=== PATIENT | male | born 1955 | race Caucasian/White ===

== ENCOUNTER 2023-08-25 13:10 | Emergency (ER) | payer MEDICARE, SELFPAY ==
[2023-08-25 13:15] VITALS: BP 170/104; PULSE 92; RESP 16; TEMP 36.6; O2SAT 99; BMI 19.6
--- NOTE | 2023-08-25 13:26 | ED.GENADUL1 ---
HPI - General Adult General Chief complaint: Urogenital-Male Stated complaint: ABDOMINAL PAIN Time Seen by Provider: 08/25/23 13:15 Source: patient Mode of arrival: walk-in History of Present Illness HPI narrative: Patient is a 68-year-old male who presents to the emergency department for the evaluation of right low back pain that has been present for 1 week. He states he was seen at the [facility] emergency department yesterday concerned he may have a kidney stone or UTI. He states he had a CT scan that was unremarkable but he was told that his urine specimen was normal, he states he never provided 1 and does not trust the care he received yesterday. He has a history of frequent UTIs with similar presentation in the past. He states he has had frequent UTIs since having a colostomy. He has no fevers, chills, nausea, vomiting, abdominal pain. He denies any dysuria or hematuria. No falls or injuries to the low back. Pain in the low back/right flank is worse with movement. Related Data Home Medications Medication Instructions Recorded Confirmed amlodipine 10 mg tablet 10 mg PO Q24H 08/25/23 08/25/23 apixaban 5 mg tablet (Eliquis) 5 mg PO Q12H 08/25/23 08/25/23 atorvastatin 20 mg tablet 20 mg PO Q24H 08/25/23 08/25/23 bictegravir 50 mg-emtricitabine 1 tab PO Q24H 08/25/23 08/25/23 200 mg-tenofovir alafenam 25 mg tablet (Biktarvy) Previous Rx's Medication Instructions Recorded cephalexin 500 mg capsule 500 mg PO Q8H 5 days #15 caps 08/25/23 ondansetron 4 mg disintegrating 4 mg PO Q6H PRN nausea and 08/25/23 tablet vomiting #12 tabs Allergies Allergy/AdvReac Type Severity Reaction Status Date / Time No Known Drug Allergies Allergy Verified 08/25/23 13:23 Review of Systems ROS Constitutional Denies: fever or chills Ears, nose, mouth, and throat Denies: throat pain or nasal congestion Cardiovascular Denies: chest pain Respiratory Denies: shortness of breath Gastrointestinal Denies: abdominal pain, nausea, vomiting or diarrhea Genitourinary Denies: painful urination, urinary frequency, urinary urgency or blood in urine Musculoskeletal Reports: back pain; Denies: neck pain or extremity pain Integumentary/Breast Denies: rash Neurological Denies: headache Hematologic/Lymphatic Reports: easy bruising and easy bleeding Exam Narrative Exam Narrative: Gen.: Awake, alert, in no distress Head: Normocephalic, atraumatic ENT: Moist mucous membranes Respiratory: No respiratory distress Gastrointestinal: Abdomen is soft, nondistended and nontender to palpation Back: Diffuse tenderness of the right low back, no CVA tenderness, no abdominal tenderness. No midline bony point tenderness of the T-spine or L-spine Extremities: Moves extremities equally Psych: Normal mood and affect Neuro: No focal neuro deficit Skin: Warm, dry, intact Constitutional Vital Signs, click to edit/add: Last Vital Signs Temp 97.8 F 08/25/23 13:15 Pulse 88 08/25/23 14:26 Resp 18 08/25/23 14:26 BP 140/90 08/25/23 14:26 Pulse Ox 98 08/25/23 14:26 O2 Del Method Room Air 08/25/23 13:15 Course Vital Signs Vital signs: Vital Signs Temperature 97.8 F 08/25/23 13:15 Pulse Rate 92 H 08/25/23 13:15 Respiratory Rate 16 08/25/23 13:15 Blood Pressure 170/104 H 08/25/23 13:15 Pulse Oximetry 99 08/25/23 13:15 Oxygen Delivery Method Room Air 08/25/23 13:15 Temperature 97.8 F 08/25/23 13:15 Pulse Rate 88 08/25/23 14:26 Respiratory Rate 18 08/25/23 14:26 Blood Pressure 140/90 08/25/23 14:26 Pulse Oximetry 98 08/25/23 14:26 Oxygen Delivery Method Room Air 08/25/23 13:15 Medical Decision Making MDM Narrative Medical decision making narrative: Lab studies show minimal UTI, patient with stable vital signs and no evidence of sepsis. He is placed on Keflex, Zofran for home. CT reviewed from [facility] yesterdayShowing no evidence of acute process and moderate stool burden. Patient placed on Keflex, Zofran, referred back to urology for further evaluation and treatment. Stable at time of discharge. Medical Records Medical records reviewed: Yes I reviewed the patient's medical records Lab Data Lab results reviewed: Yes I reviewed the patient's lab results Labs: Lab Results 08/25/23 08/25/23 Range/Units 13:20 13:44 WBC 8.0 (4.0-11.0) 10^3/uL RBC 4.43 L (4.70-6.10) 10^6/uL Hgb 14.9 (14.0-18.0) g/dL Hct 44.2 (42.0-54.0) % MCV 99.8 H (80.0-94.0) fL MCH 33.6 (25.9-34.0) pg MCHC 33.7 (29.9-35.2) g/dL RDW 12.4 (11.0-15.0) % Plt Count 201 (150-450) 10^3/uL MPV 9.8 (9.5-13.5) fL Neut % (Auto) 74.6 (43.0-75.0) % Lymph % (Auto) 16.1 L (20.5-60.0) % [place] % (Auto) 6.9 (1.7-12.0) % Eos % (Auto) 1.3 (0.9-7.0) % Baso % (Auto) 0.6 (0.2-2.0) % Neut # (Auto) 6.0 (1.4-6.5) 10^3/uL Lymph # (Auto) 1.3 (1.2-3.8) 10^3/uL [place] # (Auto) 0.6 (0.3-0.8) 10^3/uL Eos # (Auto) 0.1 (0.0-0.7) 10^3/uL Baso # (Auto) 0.1 (0.0-0.1) 10^3/uL Abs Immat Gran (auto) 0.04 H (0.00-0.03) 10^3/uL Imm/Tot Granulo (auto) 0.5 (0.0-0.5) % Sodium 142 (136-145) mmol/L Potassium 4.1 (3.5-5.1) mmol/L Chloride 105 (98-107) mmol/L Carbon Dioxide 27.5 (21.0-32.0) mmol/L Anion Gap 13.6 BUN 14.0 (7.0-18.0) mg/dL Creatinine 1.15 (0.70-1.30) mg/dL Est GFR ( Amer) >60 (>=60) Est GFR (Non-Af Amer) >60 (>=60) BUN/Creatinine Ratio 12.2 Glucose 108 H (74-106) mg/dL Lactate 1.5 (0.4-2.0) mmol/L Calcium 8.7 (8.5-10.1) mg/dL Total Bilirubin 0.4 (0.2-1.0) mg/dL AST 20 (15-37) U/L ALT 32 (16-63) U/L Alkaline Phosphatase 75 (46-116) U/L Total Protein 6.7 (6.4-8.2) g/dL Albumin 3.1 L (3.4-5.0) g/dL Globulin 3.6 g/dL Albumin/Globulin Ratio 0.9 Urine Color Yellow (YELLOW) Urine Clarity Clear (CLEAR) Urine pH 6.5 (5.0-9.0) Ur Specific [place] 1.020 (1.005-1.025) Urine Protein Negative (NEG/TRACE) mg/dL Urine Glucose (UA) Negative (NEGATIVE) mg/dL Urine Ketones Negative (NEGATIVE) mg/dL Urine Occult Blood Negative (NEGATIVE) Urine Nitrite Negative (NEGATIVE) Urine Bilirubin Negative (NEGATIVE) Urine Urobilinogen 0.2 (0.2-1.0) EU/dL Ur Leukocyte Esterase Trace A (NEGATIVE) Urine RBC None seen (0-2) #/HPF Urine WBC 5-10 A (NONE SEEN) #/HPF Ur Squamous Epith Cells Few A (NONE/RARE) #/LPF Urine Crystals Not Reportable Urine Bacteria Small A (NONE SEEN) #/HPF Urine Casts Seen A (NONE SEEN) #/LPF Hyaline Casts Moderate Urine Mucus Small A (NONE SEEN) Ur Culture Indicated? Yes Discharge Plan Discharge Chief Complaint: Urogenital-Male Clinical Impression: Urinary tract infection Patient Disposition: Home, Self-Care Time of Disposition Decision: 14:26 Condition: Good Prescriptions / Home Meds: New cephalexin 500 mg capsule 500 mg PO Q8H 5 Days Qty: 15 0RF ondansetron 4 mg tablet,disintegrating 4 mg PO Q6H PRN (Reason: nausea and vomiting) Qty: 12 0RF No Action Biktarvy 50-200-25 mg tablet 1 tab PO Q24H atorvastatin 20 mg tablet 20 mg PO Q24H Eliquis 5 mg tablet 5 mg PO Q12H amlodipine 10 mg tablet 10 mg PO Q24H Instructions: Urinary Tract Infection in Men (DC) Stand Alone Forms: Portal Instructions Referrals: Physician,Non-Staff, MD [Primary Care Provider] - 1 week
[2023-08-25 13:55] LABS: Basophils Absolute Auto 0.1 10^3/uL (0.0-0.1); Basophils Percent Auto 0.6 % (0.2-2.0); Eosinophils Absolute Auto 0.1 10^3/uL (0.0-0.7); Eosinophils Percent Auto 1.3 % (0.9-7.0); Hematocrit 44.2 % (42.0-54.0); Hemoglobin 14.9 g/dL (14.0-18.0); Immature Granulocytes Abs Auto 0.04 10^3/uL (0.00-0.03); Immature Granulocytes Pct Auto 0.5 % (0.0-0.5); Lymphocytes Absolute Auto 1.3 10^3/uL (1.2-3.8); Lymphocytes Percent Auto 16.1 % (20.5-60.0); Mean Corpuscular HGB Conc 33.7 g/dL (29.9-35.2); Mean Corpuscular Hemoglobin 33.6 pg (25.9-34.0); Mean Corpuscular Volume 99.8 fL (80.0-94.0); Mean Platelet Volume 9.8 fL (9.5-13.5); Monocytes Absolute Auto 0.6 10^3/uL (0.3-0.8); Monocytes Percent Auto 6.9 % (1.7-12.0); Neutrophils Percent Auto 74.6 % (43.0-75.0); Platelet Count 201 10^3/uL (150-450); Red Blood Count 4.43 10^6/uL (4.70-6.10); Red Cell Distribution Width 12.4 % (11.0-15.0)
[2023-08-25 14:01] LABS: Bilirubin Urine NEGATIVE (NEGATIVE); Blood Urine NEGATIVE (NEGATIVE); Clarity Urine CLEAR (CLEAR); Color Urine YELLOW (YELLOW); Glucose Urine UA NEGATIVE (NEGATIVE); Ketones Urine NEGATIVE (NEGATIVE); Leukocyte Esterase Urine TRACE (NEGATIVE); Nitrite Urine NEGATIVE (NEGATIVE); Protein Urine NEGATIVE (NEG/TRACE); Urobilinogen Urine 0.2 EU/dL (0.2-1.0); pH Urine 6.5 (5.0-9.0)
[2023-08-25 14:08] LABS: Urine Microscopic Indicated YES
[2023-08-25 14:12] LABS: Lactate/Lactic Acid 1.5 mmol/L (0.4-2.0)
[2023-08-25 14:15] LABS: RBC Urine NONE SEEN #/HPF (0-2)
[2023-08-25 14:16] LABS: Bacteria Urine SMALL #/HPF (NONE SEEN); Cast Seen? SEEN #/LPF (NONE SEEN); Hyaline Casts Urine MODERATE; Mucus Urine SMALL (NONE SEEN); Squamous Epithelial Cell Urine FEW #/LPF (NONE/RARE)
[2023-08-25 14:17] LABS: Urine Culture Indicated YES
[2023-08-25 14:19] LABS: Alanine Aminotransferase 32 U/L (16-63); Albumin Globulin Ratio 0.9; Albumin Level 3.1 g/dL (3.4-5.0); Alkaline Phosphatase 75 U/L (46-116); Anion Gap 13.6; Aspartate Amino Transferase 20 U/L (15-37); BUN Creatinine Ratio 12.2; Bilirubin Total 0.4 mg/dL (0.2-1.0); Calcium 8.7 mg/dL (8.5-10.1); Carbon Dioxide 27.5 mmol/L (21.0-32.0); Chloride 105 mmol/L (98-107); Estimated GFR (African America >60 (>=60); Estimated GFR (Non-African Ame >60 (>=60); Globulin 3.6 g/dL; Glucose 108 mg/dL (74-106); Potassium 4.1 mmol/L (3.5-5.1); Sodium 142 mmol/L (136-145); Total Protein 6.7 g/dL (6.4-8.2)
[2023-08-25 14:26] VITALS: BP 140/90; PULSE 88; RESP 18; O2SAT 98
== END 2023-08-25 14:40 | disposition home or self-care (01) ==
PROVIDERS: Physician Assistant; Emergency Provider Emergency Medicine
DX: N39.0 Urinary tract infection, site not specified (principal); Z87.440 Personal history of urinary (tract) infections; Z79.899 Other long term (current) drug therapy; Z79.01 Long term (current) use of anticoagulants
CPT/HCPCS: 36415; 80053; 81001; 83605; 85025; 87086; 99284

== ENCOUNTER 2024-06-06 10:40 | Outpatient (OUT) | payer MEDICARE, SELFPAY ==
[2024-06-06 10:53] LABS: Basophils Absolute Auto 0.1 10^3/uL (0.0-0.1); Basophils Percent Auto 0.7 % (0.2-2.0); Eosinophils Absolute Auto 0.2 10^3/uL (0.0-0.7); Eosinophils Percent Auto 3.3 % (0.9-7.0); Hematocrit 47.2 % (42.0-54.0); Hemoglobin 16.3 g/dL (14.0-18.0); Immature Granulocytes Abs Auto 0.01 10^3/uL (0.00-0.03); Immature Granulocytes Pct Auto 0.1 % (0.0-0.5); Lymphocytes Absolute Auto 2.1 10^3/uL (1.2-3.8); Lymphocytes Percent Auto 29.5 % (20.5-60.0); Mean Corpuscular HGB Conc 34.5 g/dL (29.9-35.2); Mean Corpuscular Hemoglobin 34.3 pg (25.9-34.0); Mean Corpuscular Volume 99.4 fL (80.0-94.0); Mean Platelet Volume 9.6 fL (9.5-13.5); Monocytes Absolute Auto 0.7 10^3/uL (0.3-0.8); Monocytes Percent Auto 9.5 % (1.7-12.0); Neutrophils Absolute Auto 4.1 10^3/uL (1.4-6.5); Neutrophils Percent Auto 56.9 % (43.0-75.0); Platelet Count 219 10^3/uL (150-450); Red Blood Count 4.75 10^6/uL (4.70-6.10); Red Cell Distribution Width 12.2 % (11.0-15.0); White Blood Count 7.3 10^3/uL (4.0-11.0)
--- OUTSIDE RECORDS SUMMARY | 2024-06-06 11:05 | XMS_ITS | CCD ---
Author Organization [facility] Care Team Providers Care [employer] In[employer] Name Role Phone Carla Bridges Primary Care Unavailable MD JOHN TSANG Attending Unavailable Cyrus, Carla Coffman Primary Care Unavailable Cyrus, Carla Coffman Attending Unavailable Cyrus, Carla Coffman Attending Unavailable Cyrus, Carla Coffman Primary Care Unavailable Cyrus, Carla Coffman Primary Care Unavailable MD JOHN TSANG Attending Unavailable Betito Armstrong Attending Unavailable LAYA RIVERA Admitting Unavailable SELF, REFERRED Referring Unavailable VISHAL CONTRERAS Primary Care Unavailable VISHAL CONTRERAS Referring Unavailable JOHN TSANG Attending Unavailable JOHN TSANG Admitting Unavailable VISHAL CONTRERAS Primary Care Unavailable SHARAN, DR LOPEZ Admitting Unavailable TSANG, DR LOPEZ Attending Unavailable MISC, DR COOPER Primary Care Unavailable LUCA, DR JASPREET Shoemaker Consulting Unavailable TSANG, DR LOPEZ Consulting Unavailable DAVID DANG Admitting Unavailable DAVID DANG Attending Unavailable DAVID DANG Consulting Unavailable LISA, DR COOPER Admitting Unavailable MISC, DR COOPER Attending Unavailable REQUEST, DR DIAZ LISTED Primary Care Unavaila ble MISC, DR COOPER Consulting Unavailable DAVID DANG Admitting Unavailable DAVID DANG Attending Unavailable Vishal Contreras MD Primary Care Provider ARTHUR CARVALHO I Attending Unavailable VISHAL CONTRERAS Referring Unavailable VISHAL CONTRERAS Primary Care Unavailable ARTHUR CARVALHO I Referring Unavailable VISHAL CONTRERAS Primary Care Unavailable BARRON ROQUE Referring Unavailable VISHAL CONTRERAS Primary Care Unavailable VISHAL CONTRERAS Primary Care Unavailable RENA GONG Attending Unavailable RENA GONG Attending Unavailable RENA GONG Referring Unavailable VISHAL CONTRERAS Primary Care Unavailable DAVID DANG Referring Unavailable BARAZPANCHITO Padilla Referring Unavailable HADZIAHMETOVIC, SARIKA Attending Unavaila ble OMBALLI, ALLYSSA Referring Unavailable HADZIAHMETOVIC, MERSTRIA Referring Unavaila ble CARLY, RASHAWN Referring Unavailable RABETS, BETH Attending Unavailable CARLY, RASHAWN Referring Unavailable ARIF, MIRA Referring Unavailable ALTON, DAVID Referring Unavailable KLEBER, CHUCK Referring Unavailable KLEBER, CHUCK Referring Unavailable CARLY, RASHAWN Attending Unavailable ALTON, DAVID Referring Unavailable HADZIAHMETOVIC, SARIKA Attending Unavaila ble HADZIAHMETOVIC, MERSTRIA Referring Unavaila ble OMBALLI, ALLYSSA Referring Unavailable ALTON, DAVID Referring Unavailable ALTON, DAVID Referring Unavailable ALTON, DAVID Referring Unavailable ALTON, DAVID Referring Unavailable ALTON, DAVID Referring Unavailable ALTON, DAVID Referring Unavailable ALTON, DAVID Attending Unavailable CARLY, RASHAWN Attending Unavailable RABETS, BETH Attending Unavailable CUCO, REENA Attending Unavailable OMBALLI, ALLYSSA Attending Unavailable CARLY, RASHAWN Referring Unavailable Allergies Allergy Classification Reported Allergen(s) Allergy Type Date of Onset Reaction(s) Facility (1 source) 67266,00; Translations: [22620,00] Propensity to adverse reactions (disorder) [address] [facility] Repository Medications Current Medications Medication Drug Class(es) Dates Sig (Normalized) Sig (Original) [id number] 200 actuat albuterol 0.09 mg/actuat metered dose inhaler (4 sources) beta2-Adrenergic Agonist take 2 puff(s) by inhalation every six hours as needed for wheezing albuterol (PROVENTIL HFA;VENTOLIN HFA) 90 mcg/actuation inhaler Inhale 2 puffs every 6 (six) hours as needed for wheezing. 0 Active amLODIPine 2.5 mg oral tablet (4 sources) Dihydropyridine Calcium Channel Shelia take 1 tablet by mouth in the morning amLODIPine (NORVASC) 2.5 mg tablet Take 1 tablet (2.5 mg total) by mouth in the morning. 0 Active aspirin 325 mg oral tablet (4 sources) Platelet Aggregation Inhibitor, Nonsteroidal Anti-inflammatory Drug take 1 tablet by mouth in the morning aspirin 325 mg tablet Take 1 tablet (325 mg total) by mouth in the morning. 0 Active atorvastatin 20 mg oral tablet (4 sources) HMG-CoA Reductase Inhibitor Start: 03-24-2019 take 1 tablet by mouth in the morning atorvastatin (LIPITOR) 20 mg tablet Take 1 tablet (20 mg total) by mouth in the morning. 1 03/24/2019 Active bictegravir 50 mg / emtricitabine 200 mg / tenofovir alafenamide 25 mg oral tablet (4 sources) Human Immunodeficiency Virus Nucleoside Analog Reverse Transcriptase Inhibitor take 1 tablet by mouth once daily bictegrav-emtricit -tenofov ala (BIKTARVY) 50-200-25 mg per tablet Take 1 tablet by mouth nightly. 0 Active Budesonide / formoterol (4 sources) Corticosteroid, beta2-Adrenergic Agonist take 2 puff(s) by inhalation in the morning budesonide-formote rol (SYMBICORT) 80-4.5 mcg/actuation inhaler Inhale 2 puffs in the morning and 2 puffs before bedtime. 0 Active ciprofloxacin 500 mg oral tablet (1 source) Quinolone Antimicrobial Start: 08-05-2023 End: 08-12-2023 take 1 tablet by mouth in the morning, then take 1 tablet by mouth at bedtime ciprofloxacin HCl (CIPRO) 500 mg tablet Take 1 tablet (500 mg total) by mouth in the morning and 1 tablet (500 mg total) before bedtime. Do all this for 7 days. 14 tablet 0 08/05/2023 08/12/2023 Active clonazePAM 0.5 mg oral tablet (4 sources) Benzodiazepine Start: 02-13-2020 take 1 tablet by mouth in the morning clonazePAM (KlonoPIN) 0.5 mg tablet Take 1 tablet (0.5 mg total) by mouth in the morning. 0 02/13/2020 Active 24 hr desvenlafaxine succinate 100 mg extended release oral tablet (4 sources) Serotonin and Norepinephrine Reuptake Inhibitor take 1 tablet by mouth every twenty-four hours in the morning desvenlafaxine (PRISTIQ) 100 mg 24 hr tablet Take 1 tablet (100 mg total) by mouth in the morning. 0 Active levoFLOXacin 500 mg oral tablet (1 source) Quinolone Antimicrobial Start: 08-23-2023 End: 08-24-2023 levoFLOXacin (LEVAQUIN) 500 mg tablet Take 1-2 hours prior to your procedure 1 tablet 0 08/23/2023 08/24/2023 Active magnesium oxide 400 mg oral tablet (4 sources) Start: 05-14-2022 take 2 tablets by mouth in the morning magnesium oxide (MAGOX) 400 mg tablet Take 2 tablets (800 mg total) by mouth in the morning. 0 05/14/2022 Active pantoprazole 40 mg delayed release oral tablet (4 sources) Proton Pump Inhibitor Start: 04-22-2022 take 1 tablet by mouth in the morning pantoprazole (PROTONIX) 40 mg EC tablet Take 1 tablet (40 mg total) by mouth in the morning. 0 04/22/2022 Active tretinoin 0.5 mg/ml topical cream (4 sources) Retinoid Start: 07-18-2019 tretinoin (RETIN-A) 0.05 % cream ISMAEL TO FACE QPM UTD 0 07/18/2019 Active vardenafil 5 mg oral tablet (4 sources) Phosphodiesterase 5 Inhibitor vardenafil (LEVITRA) 5 MG tablet Take 1 tablet (5 mg total) by mouth as needed for erectile dysfunction. 0 Active Problems Active Problems Problem Classification Problem Date Documented Date Episodic/Chronic Cancer of bronchus; lung (2 sources) Malignant neoplasm of upper lobe, right bronchus or lung; Translations: [Malignant neoplasm of upper lobe, right bronchus or lung] Onset: 07-29-2023 Chronic Cancer of prostate (2 sources) Malignant neoplasm of prostate; Translations: [Malignant neoplasm of prostate] Onset: 09-08-2023 Chronic Cardiac dysrhythmias (2 sources) Paroxysmal atrial fibrillation; Translations: [Paroxysmal atrial fibrillation] Onset: 03-16-2022 Chronic Chronic obstructive pulmonary disease and bronchiectasis (12 sources) Pulmonary emphysema; Translations: [Emphysema, unspecified] Onset: 08-27-2017 08-27-2017 Chronic Disorders of lipid metabolism (4 sources) Hypercholesterolemia; Translations: [Pure hypercholesterolemia, unspecified] Onset: 08-27-2017 08-27-2017 Chronic Essential hypertension (6 sources) Hypertensive disorder; Translations: [Essential (primary) hypertension] Onset: 08-27-2017 02-09-2020 Chronic HIV infection (8 sources) Human immunodeficiency virus [HIV] disease; Translations: [Asymptomatic human immunodeficiency virus [HIV] infection status] Onset: 09-09-2022 Chronic Hyperplasia of prostate (8 sources) Benign prostatic hyperplasia; Translations: [Benign prostatic hyperplasia with lower urinary tract symptoms] Onset: 09-29-2016 02-19-2021 Chronic Osteoarthritis (4 sources) Bilateral osteoarthritis of first carpometacarpal joint; Translations: [Bilateral primary osteoarthritis of first carpometacarpal joints] Onset: 12-29-2018 04-17-2020 Chronic Other nervous system disorders (2 sources) Other chronic pain; Translations: [Other chronic pain] Onset: 02-24-2024 Chronic Other upper respiratory disease (4 sources) Allergic rhinitis; Translations: [Allergic rhinitis, unspecified] Onset: 08-16-2017 08-16-2017 Chronic Other upper respiratory infections (4 sources) Sinusitis; Translations: [Chronic sinusitis, unspecified] Onset: 06-23-2017 06-23-2017 Chronic Residual codes; unclassified (1 source) Procedure and treatment not carried out due to patient leaving prior to being seen by health care provider; Translations: [Procedure and treatment not carried out due to patient leaving prior to being seen by health care provider] Onset: 08-24-2023 Episodic Spondylosis; intervertebral disc disorders; other back problems (4 sources) Cervical spondylosis without myelopathy; Translations: [Spondylosis without myelopathy or radiculopathy, cervical region] Onset: 12-06-2018 12-06-2018 Chronic Substance-related disorders (4 sources) Cannabis abuse; Translations: [Cannabis abuse, uncomplicated] Onset: 08-27-2017 08-27-2017 Chronic Unclassified (3 sources) VENTRICULAR TACHYCARDIA UNSPECIFIED; Translations: [VENTRICULAR TACHYCARDIA UNSPECIFIED] Onset: 05-30-2022 Unclassified (1 source) Urinary Problems Onset: 08-24-2023 Urinary tract infections (1 source) Urinary tract infection, site not specified; Translations: [Urinary tract infection, site not specified] Onset: 08-03-2023 Episodic Past or Other Problems Problem Classification Problem Date Documented Da te Episodic/Chronic Abdominal pain (3 sources) Flank pain; Translations: [Unspecified abdominal pain] Onset: 08-24-2023 Episodic Cardiac dysrhythmias (2 sources) Palpitations; Translations: [Palpitations] Onset: 10-06-2023 Episodic Genitourinary symptoms and ill-defined conditions (6 sources) Blood in urine; Translations: [Hematuria, unspecified] Onset: 07-19-2017 Resolved: 08-27-2017 08-27-2017 Episodic Nausea and vomiting (2 sources) Nausea; Translations: [Nausea] Onset: 02-24-2024 Episodic Nonspecific chest pain (4 sources) Tight chest; Translations: [Other chest pain] Onset: 08-27-2017 Resolved: 02-09-2020 02-09-2020 Episodic Other gastrointestinal disorders (4 sources) Viscus structure finding; Translations: [Other specified symptoms and signs involving the digestive system and abdomen] Onset: 05-28-2020 05-28-2020 Episodic Other gastrointestinal disorders (2 sources) Abdominal distension (gaseous); Translations: [Abdominal distension (gaseous)] Onset: 02-24-2024 Episodic Other lower respiratory disease (4 sources) Dyspnea; Translations: [Shortness of breath] Onset: 08-27-2017 02-09-2020 Episodic Other lower respiratory disease (2 sources) Solitary pulmonary nodule; Translations: [Solitary pulmonary nodule] Onset: 07-29-2023 Episodic Other screening for suspected conditions (not mental disorders or infectious disease) (15 sources) Raised prostate specific antigen; Translations: [Elevated prostate specific antigen [PSA]] Onset: 09-29-2016 07-21-2023 Episodic Other upper respiratory disease (4 sources) Deviated nasal septum; Translations: [Deviated nasal septum] Onset: 06-23-2017 06-23-2017 Episodic Other upper respiratory disease (4 sources) Nasal septal spur; Translations: [Other specified disorders of nose and nasal sinuses] Onset: 07-22-2017 07-22-2017 Episodic Other upper respiratory disease (4 sources) Nasal obstruction; Translations: [Other specified disorders of nose and nasal sinuses] Onset: 07-22-2017 07-22-2017 Episodic Unclassified (1 source) VENTRICULAR TACHYCARDIA UNSPECIFIED; Translations: [VENTRICULAR TACHYCARDIA UNSPECIFIED] Onset: 05-27-2022 Results Test Name Value Interpretation Reference Range Facility Prep for Procedureon 024 Prep for Procedure [id number] Kim Barron 1955 M Date Provider Department Center 05/23/2024 Ramo[facility] Family History Problem Relation Age of Onset Heart attack Mother Uterine cancer Mother Hypertension Mother Lung cancer Father Comments: possibly Diabetes Sister Other Paternal Grandmother Family Status - Relation Status Age at Mother Father Sister Paternal Grandmother Normal [facility] Office Visiton 05-02-2024 Follow-up visit [id number] Kim Barron 1955 M Date Provider Department Center 05/02/2024 DAVID MOORE EUGENIA [facility] Family History Problem Relation Age of Onset Heart attack Mother Uterine cancer Mother Hypertension Mother Lung cancer Father Comments: possibly Diabetes Sister Other Paternal Grandmother Family Status - Relation Status Age at Mother Father Sister Paternal Grandmother Level of Service:10739 [place] OFFICE/OUTPATIENT ESTABLISHED LOW MDM [address] [facility] Refillon 04-23-2024 Refill [id number] Kim Barron 1955 M Date Provider Department Center 04/23/2024 RASHAWN AMIN [facility] History Problem Relation Age of Onset Heart attack Mother Uterine cancer Mother Hypertension Mother Lung cancer Father Comments: possibly Diabetes Sister Other Paternal Grandmother Family Status - Relation Status Age at Mother Father Sister Paternal Grandmother Reason for Visit and Comments: Med Refill [[id number]] Normal 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 CHLAMYDIA TRACHOMATIS AND NE ISSERIA GONORRHEA, TMAon 03-31-2024 CHLAMYDIA TRACHOMATIS DNA PROBE (PRESENCE) IN UNSP SPEC Negative Normal Negative [facility] Comment on above: Result Comment: No C hlamydia trachomatis rRNA Detected. The Aptima Combo 2 Assay is a FDA approved target amplification nucleic acid probe test that utilizes target capture for the in vitro qualitative detection and differentiation of ribosomal RNA (rRNA) from Chlamydia trachomatis (CT) and/or Neisseria gonorrhoeae (GC) to aid the diagnosis of chlamydial and/or gonococcal urogenital disease using the [employer] System. The Aptima Combo 2 Assay involves target capture, target amplification by Mediator-Mediated Amplification (TMA), and the detection of the amplification products (amplicon) by the Hybridization Protection Assay (HPA). The internal process controls of the [employer] System monitor the target capture, amplification, and detection steps of the assay, this is not intended to control for sampling adequacy. Performed By: #### L [id number] #### [facility] ([facility]) [address] [place] [address] NEISSERIA GONORRHOEAE DNA PROBE (PRESENCE) IN UNSP SPEC Negative Normal Negative [facility] Comment on above: Result Comment: No N eisseria gonorrhoeae rRNA Detected. The Aptima Combo 2 Assay is a FDA approved target amplification nucleic acid probe test that utilizes target capture for the in vitro qualitative detection and differentiation of ribosomal RNA (rRNA) from Chlamydia trachomatis (CT) and/or Neisseria gonorrhoeae (GC) to aid the diagnosis of chlamydial and/or gonococcal urogenital disease using the [employer] System. The Aptima Combo 2 Assay involves target capture, target amplification by Mediator-Mediated Amplification (TMA), and the detection of the amplification products (amplicon) by the Hybridization Protection Assay (HPA). The internal process controls of the [employer] System monitor the target capture, amplification, and detection steps of the assay, this is not intended to control for sampling adequacy. Performed By: #### L [id number] #### [facility] [address] [place] [address] Office Visiton 03-31-2024 Follow-up visit [id number] Kim Barron 1955 M Date Provider Department [place] 03/31/2024 RASHAWN AMIN [facility] Family History Problem Relation Age of Onset Heart attack Mother Uterine cancer Mother Hypertension Mother Lung cancer Father Comments: possibly Diabetes Sister Other Paternal Grandmother Family Status - Relation Status Age at Mother Father Sister Paternal Grandmother Level of Service:48368 [place] OFFICE/OUTPATIENT ESTABLISHED MOD MDM 30 MIN Reason for Visit and Comments: Health Maintenance [619] HIV Positive/AIDS [109] Medication Visit [612] Normal [facility] URINALYSIS MICROSCOPIC WITH REFLEX CULTUREon 03-31-2024 CASTS IN URINE Normal [facility] Comment on above: Performed By: #### L [id number] #### [facility] [address] [place] [address] CRYSTALS IN URINE Normal [facility] Comment on above: Performed By: #### L [id number] #### [facility]) [address] [place] [address] MUCUS (#/HPF) IN URINE SEDIMENT Occasional Normal None Seen, Occasional, Few [facility] Comment on above: Performed By: #### L [id number] #### [facility] [address] [place] [address] OTHER MICROSCOPIC ELEMENTS Normal [facility] Comment on above: Performed By: #### L [id number] #### [facility] [address] [place] [address] RBC (#/HPF) IN URINE SEDIMENT 11-20 Abnormal None Seen [facility] Comment on above: Performed By: #### L [id number] #### [facility] [address] [place] [address] SQUAMOUS EPITHELIAL CELLS (#/HPF) IN URINE SEDIMENT Few Abnormal None Seen, Occasional [facility] Comment on above: Performed By: #### L [id number] #### [facility]) [address] [place] [address] WBC (LEUKOCYTE) (#/HPF) IN URINE SEDIMENT None Seen Normal None Seen [facility] Comment on above: Performed By: #### L [id number] #### [facility] ([facility]) [address] [place] [address] URINALYSIS WITH REFLEX CULTU REon 03-31-2024 BILIRUBIN, TOTAL PRESENCE IN URINE Negative Normal Negative [facility] Comment on above: Performed By: #### L [id number] #### [facility] ([facility]) [address] [place] [address] Clarity (U) Clear Normal Clear [facility] Comment on above: Performed By: #### L [id number] #### [facility] ([facility]) [address] [place] [address] Color (U) Yellow Normal Yellow [facility] Comment on above: Performed By: #### L [id number] #### [facility] ([facility]) [address] [place] [address] Glucose (U) [Mass/Vol] Negative Normal Negative [facility] Comment on above: Performed By: #### L [id number] #### [facility] ([facility]) [address] [place] [address] HEMOGLOBIN PRESENCE IN URINE Moderate Abnormal Negative [facility] Comment on above: Performed By: #### L [id number] #### [facility] ([facility]) [address] [place] [address] Ketones Ql (U) Negative Normal Negative [facility] Comment on above: Performed By: #### L [id number] #### [facility] ([facility]) [address] [place] [address] LEUKOCYTE ESTERASE PRESENCE IN URINE BY TEST STRIP Negative Normal Negative [facility] Comment on above: Performed By: #### L [id number] #### [facility] ([facility]) [address] [place] [address] NITRITE PRESENCE IN URINE Negative Normal Negative [facility] Comment on above: Performed By: #### L [id number] #### [facility] ([facility]) [address] [place] [address] pH (U) 6.0 [pH] Normal 5.0-8.[address] [facility] Comment on above: Performed By: #### L [id number] #### [facility] ([facility]) [address] [place] [address] Protein (U) [Mass/Vol] Negative Normal Negative [facility] Comment on above: Performed By: #### L [id number] #### [facility] ([facility]) [address] [place] [address] Specific gravity (U) [Rel density] 1.006 Low 1.015-1.[address] [facility] Comment on above: Performed By: #### L [id number] #### [facility] [address] [place] [address] Office Visiton 03-07-2024 Follow-up visit [id number] Kim Barron 1955 M Date Provider Department Center 03/07/2024 [id number] HEAD*[facility] Family History Problem Relation Age of Onset Heart attack Mother Uterine cancer Mother Hypertension Mother Lung cancer Father Comments: possibly Diabetes Sister Other Paternal Grandmother Family Status - Relation Status Age at Mother Father Sister Paternal Grandmother Level of Service:29025 [place] OFFICE/OUTPATIENT ESTABLISHED MOD MDM 30 MIN Reason for Visit and Comments: Follow-up [056130] Abdominal Pain [944261] Constipation [701273] Normal [facility] NM GASTRIC EMPTYING SOLIDon 02-24-2024 NM GASTRIC EMPTYING SOLID Exam: Gastric imaging study CLINICAL INDICATIONS: Bloating, nausea, reflux, hiatal hernia. PROTOCOL: Following oral administration of radiolabeled food, labeled with technetium 99m sulfur colloid, projection images of the abdomen were obtained at 1 hour intervals out to 4 hours. When possible, both anterior and posterior projection images were obtained to allow the calculation of the geometric mean activity. RADIOPHARMACEUTICAL: Technetium 99 sulfur colloid 1 mCi COMPARISON: None. FINDINGS: T was 41 minutes. Tracer activity no observed in the distal esophagus. The percentage of retained food at the specified time in the stomach are calculated as follows: 0.5 Hour: 55 % remaining 1 Hour: 36 % remaining 2 Hour: 4 % remaining IMPRESSION: Gastric Emptying Study: Normal Electronically signed: Jaspreet Denny. 9 Invalid Interpret[address] Code [facility] CT CHEST WO IV CONTRASTon CT CHEST WO IV CONTRAST CT CHEST WO IV CONTRAST 02/16/2024 9:09 AM CLINICAL INDICATIONS: Non-small cell lung cancer (NSCLC), surveillance after SBRT TECHNIQUE: Multidetector CT axial slices of the chest were obtained without IV contrast. Multiplanar reformats were performed. All CT scans at this facility use dose modulation, iterative reconstruction, and/or weight based dosing when appropriate to reduce radiation dose to as low as reasonably achievable. COMPARISON: Noncontrast chest CT from 11/10/2023.. FINDINGS: A nodule posteriorly in the right upper lobe has further decreased in size from 6 to 4 mm on today's exam. It is currently seen on series 2, image 33 Severe emphysematous changes unaltered. No new noncalcified pulmonary nodules, infiltrates, or other pulmonary abnormalities are demonstrated. No pleural abnormalities are displayed. Mild coronary artery calcification is demonstrated. With evaluation compromised by lack of contrast no gross hilar or mediastinal lymphadenopathy or other additional mediastinal abnormalities are demonstrated. Mild coronary artery calcification is displayed. Moderate S-shaped scoliosis is convex right in the thoracic spine and convex left at the thoracolumbar junction. No other abnormalities are displayed in the chest wall. Cholelithiasis is redemonstrated. The portions of upper abdominal organs included display no other significant abnormalities on these noncontrast images. IMPRESSION: Small right upper lobe lung nodule appears slightly further decreased in size. No new abnormalities. Electronically signed: Betito Sloan. [address] Invalid [address] Code [facility] Refillon 02-01-2024 Refill [id number] Kim Barron Vidya 1955 [facility] Provider Department Center 02/01/2024 RASHAWN AMIN [facility] Problem Relation Age of Onset Heart attack Mother Uterine cancer Mother Hypertension Mother Lung cancer Father Comments: possibly Diabetes Sister Other Paternal Grandmother Family Status - Relation Status Age at Mother Father Sister Paternal Grandmother Reason for Visit and Comments: Med Refill [[id number]] Normal [facility] Refillon 01-05-2024 Refill [id number] Kim Barron 1955 M Date Provider Department Center 01/05/2024 [id number] HERNANDEZ [facility] David Heal Family History Problem Relation Age of Onset Heart attack Mother Uterine cancer Mother Hypertension Mother Lung cancer Father Comments: possibly Diabetes Sister Other Paternal Grandmother Family Status - Relation Status Age at Mother Father Sister Paternal Grandmother Reason for Visit and Comments: Med Refill [[id number]] Normal [facility] Refillon 12-27-2023 Refill [id number] Kim Barron 1955 M Date Provider Department Center 12/27/2023 PANCHITO TORRES [facility] David Heal Family History Problem Relation Age of Onset Heart attack Mother Uterine cancer Mother Hypertension Mother Lung cancer Father Comments: possibly Diabetes Sister Other Paternal Grandmother Family Status - Relation Status Age at Mother Father Sister Paternal Grandmother Reason for Visit and Comments: Med Refill [[id number]] Normal [facility] Documentationon 12-14-2023 Documentation [id number] Kim Barron 1955 M Date Provider Department Center 12/14/2023 Adamaris-GABRIEL PANG [facility] Family History Problem Relation Age of Onset Heart attack Mother Uterine cancer Mother Hypertension Mother Lung cancer Father Comments: possibly Diabetes Sister Other Paternal Grandmother Family Status - Relation Status Age at Mother Father Sister Paternal Grandmother Reason for Visit and Comments: Specialty Pharmacy note [Other] - Araceli Normal [facility] Office Visiton 12-14-2023 Follow-up visit [id number] Kim Barron 1955 M Date Provider Department Center 12/14/2023 [id number] HEAD [facility] Family History Problem Relation Age of Onset Heart attack Mother Uterine cancer Mother Hypertension Mother Lung cancer Father Comments: possibly Diabetes Sister Other Paternal Grandmother Family Status - Relation Status Age at Mother Father Sister Paternal Grandmother Level of Service:24641 [place] OFFICE/OUTPATIENT ESTABLISHED LOW MDM 20 MIN Reason for Visit and Comments: New Patient [632] Constipation [772214] Normal [facility] Follow-Upon 12-08-2023 Follow-Up [id number] Kim Barron 1955 M Date Provider Department Center 12/08/2023 BETH RAMIREZ [facility] [place] Family History Problem Relation Age of Onset Heart attack Mother Uterine cancer Mother Hypertension Mother Lung cancer Father Comments: possibly Diabetes Sister Other Paternal Grandmother Family Status - Relation Status Age at Mother Father Sister Paternal Grandmother Level of Service:75378 [place] OFFICE/OUTPATIENT ESTABLISHED MOD MDM 30 MIN Reason for Visit and Comments: Prostate Cancer [309] - 3 mo follow-up with PSA Normal [facility] CT CHEST WO IV CONTRASTon CT CHEST WO IV CONTRAST CT CHEST WO IV CONTRAST 11/10/2023 11:07 AM CLINICAL INDICATIONS:Right upper lung cancer. Metastatic survey and follow-up TECHNIQUE: Multidetector CT axial slices of the chest were obtained without IV contrast. Multiplanar reformats were performed and viewed on a separate workstation and reviewed to further define anatomy and possible pathology. All CT scans at this facility use dose modulation, iterative reconstruction, and/or weight based dosing when appropriate to reduce radiation dose to as low as reasonably achievable. COMPARISON: May 2022 3. FINDINGS: No abnormally enlarged axillary lymph nodes or localized chest wall pathology. Implanted cardiac device left anterior chest wall. Normal heart size. Ascending aorta measures 3.5 cm at the level the right main pulmonary artery. No pericardial effusion or abnormally enlarged mediastinal lymph nodes. Decreased prominence of pulmonary nodule posterior right upper lobe today measuring 6 mm. Image 26/127. No new or additional nodules demonstrated within either lung. Advanced pulmonary emphysema most affecting upper lobes present diffusely. No active disease. Mild basilar scarring. Bony structures appear age compatible. No acute or destructive disease. Included portions the upper abdomen show normal size adrenal glands and no obvious liver disease.. Uncomplicated cholelithiasis. IMPRESSION: *Decreased size of right upper lobe nodule. No new disease or metastases demonstrated. *Advanced pulmonary emphysema. *Small gallstones. Electronically signed: Humberto Bailey. Normal [facility] Office Visiton 11-04-2023 Follow-up visit [id number] Kim Barron 1955 M Date Provider Department Center 11/04/2023 David-REENA NORWOOD CARD [facility] Family History Problem Relation Age of Onset Heart attack Mother Uterine cancer Mother Hypertension Mother Lung cancer Father Comments: possibly Diabetes Sister Other Paternal Grandmother Family Status - Relation Status Age at Mother Father Sister Paternal Grandmother Level of Service:40423 [place] OFFICE/OUTPATIENT ESTABLISHED MOD MDM [address] [facility] 37on 11-03-2023 37 Please drink 240 mL by mouth 1 (one) time for 1 dose for a bowel cleanse. Please drink plenty of water or sports drinks Will start daily lactulose titrate as needed. Take 15 mL (10 g) by mouth in the morning, at noon, and at bedtime. You can take up to three times per day, however please start with once daily and increase as needed to see soft, daily, easy to produce bowel movements. Follow up [address] [facility] Office Visiton 11-03-2023 Follow-up visit [id number] Kim Barron 1955 M Date Provider Department Center 11/03/2023 [id number] HEAD*MP [facility] Family History Problem Relation Age of Onset Heart attack Mother Uterine cancer Mother Hypertension Mother Lung cancer Father Comments: possibly Diabetes Sister Other Paternal Grandmother Family Status - Relation Status Age at Mother Father Sister Paternal Grandmother Level of Service:40223 [place] OFFICE/OUTPATIENT NEW MODERATE MDM 45 MINUTES Reason for Visit and Comments: New Patient [632] Abdominal Pain [467866] Constipation [715371] Nausea [70] Normal [facility] BASIC METABOLIC PANELon 10-10 Anion gap [Moles/Vol] 11 mmol/L Normal 7-[address] [facility] Comment on above: Performed By: #### L [id number] #### [facility] ([facility] [place] [address] [place] [address] Calcium [Mass/Vol] 9.5 mg/dL Normal 8.6-10.3 [facility] Comment on above: Performed By: #### L [id number] #### [facility] ([facility] [place]) [address] [place] [address] Chloride [Moles/Vol] 107 mmol/L Normal 98-[address] [facility] Comment on above: Performed By: #### L [id number] #### [facility] ([facility]) [address] [place] [address] CO2 [Moles/Vol] 28 mmol/L Normal 21-31 [facility] Comment on above: Performed By: #### L [id number] #### [facility] ([facility] [place]) [address] [place] [address] Creatinine [Mass/Vol] 1.09 mg/dL Normal 0.70-1.[address] [facility] Comment on above: Performed By: #### L [id number] #### [facility] ([facility] [place]) [address] [place] [address] GLOMERULAR FILTRATION RATE ML/MIN/1.73 SQ M.PREDICTED 74.9 mL/min/1.73m*2 Normal >60.0 [facility] Comment on above: Result Comment: The [facility]???s estimated glomerular filtration rate (eGFR) will no longer include consideration of race in its calculation. The National Kidney Foundation???s eGFR Task Force developed new recommendations for the estimation of the glomerular filtration rate in the [place] They recommend immediate implementation of the new equation refit without the race variable in all laboratories because the calculation does not include race. In addition to not including race in the calculation and reporting, it included diversity in its development, and has acceptable performance characteristics and potential consequences that do not disproportionately affect any one group of individuals. Performed By: #### L [id number] #### [facility] ([facility]) [address] [place] [address] Glucose [Mass/Vol] 46 mg/dL Invalid Interpretation Code 70-[address] [facility] Comment on above: Performed By: #### L [id number] #### [facility] ([facility] [place]) [address] [place] [address] Potassium [Moles/Vol] 4.6 mmol/L Normal 3.5-5.[address] [facility] Comment on above: Performed By: #### L [id number] #### [facility] ([facility] [place]) [address] [place] [address] Sodium [Moles/Vol] 141 mmol/L Normal 136-145 [facility] Comment on above: Performed By: #### L [id number] #### [facility] [address] [place] [address] Urea nitrogen [Mass/Vol] 19 mg/dL Normal 7-[address] [facility] Comment on above: Performed By: #### L [id number] #### [facility] ([facility] [place]) [address] [place] [address] UREA NITROGEN/CREATININE (MASS RATIO) IN SER/PLAS 17.[address] [facility] Comment on above: Performed By: #### L [id number] #### [facility] [address] [place] [address] CBC WITH AUTO DIFFERENTIALon 10-29-2023 Basophils (Bld) [#/Vol] 0.08 10*3/uL Normal 0.00-0.[address] [facility] Comment on above: Performed By: #### L [id number] #### [facility] ([facility]) [address] [place] [address] Basophils/100 WBC (Bld) 1.0 % Normal 0.0-1.[address] [facility] Comment on above: Performed By: #### L [id number] #### [facility] ([facility]) [address] [place] [address] Eosinophils (Bld) [#/Vol] 0.29 10*3/uL Normal 0.00-0.[address] [facility] Comment on above: Performed By: #### L [id number] #### [facility] ([facility]) [address] [place] [address] Eosinophils/100 WBC (Bld) 3.8 % Normal 0.0-6.[address] [facility] Comment on above: Performed By: #### L [id number] #### [facility] ([facility] [place]) [address] [place] [address] Erythrocyte distribution width (RBC) [Ratio] 12.9 % Normal 11.5-15.[address] [facility] Comment on above: Performed By: #### L [id number] #### [facility] ([facility]) [address] [place] [address] ERYTHROCYTE MEAN CORPUSCULAR HEMOGLOBIN CONCENTRATION (G/DL) BY AUTOMATED 34.3 g/dL Normal 32.0-35.0 [facility] Comment on above: Performed By: #### L [id number] #### [facility] ([facility] [place]) [address] [address] Hematocrit (Bld) [Volume fraction] 46.7 % Normal 39.0-55.[address] [facility] Comment on above: Performed By: #### L [id number] #### [facility] ([facility]) [address] [place] [address] Hemoglobin (Bld) [Mass/Vol] 16.0 g/dL Normal 13.0-17.[address] [facility] Comment on above: Performed By: #### L [id number] #### [facility] ([facility]) [address] [place] [address] Immature granulocytes (Bld) [#/Vol] 0.03 10*3/uL Normal 0.00-0.[address] [facility] Comment on above: Performed By: #### L [id number] #### [facility] ([facility]) [address] [place] [address] Immature granulocytes/100 WBC (Bld) 0.4 % Normal 0.0-1.[address] [facility] Comment on above: Performed By: #### L [id number] #### [facility] ([facility] [place]) [address] [place] [address] Lymphocytes (Bld) [#/Vol] 2.18 10*3/uL Normal 1.20-4.[address] [facility] Comment on above: Performed By: #### L [id number] #### [facility] ([facility] [place]) [address] [place] [address] Lymphocytes/100 WBC (Bld) 28.5 % Normal 20.0-45.[address] [facility] Comment on above: Performed By: #### L [id number] #### [facility] ([facility] [place]) [address] [place] [address] MCH (RBC) [Entitic mass] 33.9 pg High 27.0-33.[address] [facility] Comment on above: Performed By: #### L [id number] #### [facility] [address] [place] [address] MCV (RBC) [Entitic vol] 98.9 fL High 82.0-98.[address] [facility] Comment on above: Performed By: #### L [id number] #### [facility] [address] [place] [address] Monocytes (Bld) [#/Vol] 0.75 10*3/uL Normal 0.10-1.[address] [facility] Comment on above: Performed By: #### L [id number] #### [facility] [address] [place] [address] Monocytes/100 WBC (Bld) 9.8 % Normal 5.0-12.[address] [facility] Comment on above: Performed By: #### L [id number] #### [facility] [address] [place] [address] Neutrophils (Bld) [#/Vol] 4.33 10*3/uL Normal 1.60-7.[address] [facility] Comment on above: Performed By: #### L [id number] #### [facility] ([facility]) [address] [place] [address] Neutrophils/100 WBC (Bld) 56.5 % Normal 40.0-72.[address] [facility] Comment on above: Performed By: #### L [id number] #### [facility] ([facility]) [address] [place] [address] NRBC (PER 100 WBCS) BY AUTOMATED COUNT 0.0 % Normal [address] [facility] Comment on above: Performed By: #### L [id number] #### [facility] ([facility]) [address] [place] [address] PLATELETS (10*3/UL) IN BLOOD AUTOMATED COUNT 273 10*3/uL Normal 150-[address] [facility] Comment on above: Performed By: #### L [id number] #### [facility] [address] [place] [address] RBC (Bld) [#/Vol] 4.72 10*6/uL Normal 4.20-5.70 [facility] Comment on above: Performed By: #### L [id number] #### [facility] [address] [place] [address] WBC (Bld) [#/Vol] 7.66 10*3/uL Normal 4.00-10.60 [facility] Comment on above: Performed By: #### L [id number] #### [facility] ([facility]) [address] [place] [address] CHLAMYDIA TRACHOMATIS AND NE ISSERIA GONORRHEA, TMAon 10-29-2023 CHLAMYDIA TRACHOMATIS DNA PROBE (PRESENCE) IN UNSP SPEC Negative Normal Negative [facility] Comment on above: Result Comment: No C hlamydia trachomatis rRNA Detected. The Aptima Combo 2 Assay is a FDA approved target amplification nucleic acid probe test that utilizes target capture for the in vitro qualitative detection and differentiation of ribosomal RNA (rRNA) from Chlamydia trachomatis (CT) and/or Neisseria gonorrhoeae (GC) to aid the diagnosis of chlamydial and/or gonococcal urogenital disease using the Keene System. The Aptima Combo 2 Assay involves target capture, target amplification by Mediator-Mediated Amplification (TMA), and the detection of the amplification products (amplicon) by the Hybridization Protection Assay (HPA). The internal process controls of the Keene System monitor the target capture, amplification, and detection steps of the assay, this is not intended to control for sampling adequacy. Performed By: #### L [id number] ####[facility] ([facility])[address] [place] [address] NEISSERIA GONORRHOEAE DNA PROBE (PRESENCE) IN UNSP SPEC Negative Normal Negative [facility] Comment on above: Result Comment: No N eisseria gonorrhoeae rRNA Detected. The Aptima Combo 2 Assay is a FDA approved target amplification nucleic acid probe test that utilizes target capture for the in vitro qualitative detection and differentiation of ribosomal RNA (rRNA) from Chlamydia trachomatis (CT) and/or Neisseria gonorrhoeae (GC) to aid the diagnosis of chlamydial and/or gonococcal urogenital disease using the Keene System. The Aptima Combo 2 Assay involves target capture, target amplification by Mediator-Mediated Amplification (TMA), and the detection of the amplification products (amplicon) by the Hybridization Protection Assay (HPA). The internal process controls of the Keene System monitor the target capture, amplification, and detection steps of the assay, this is not intended to control for sampling adequacy. Performed By: #### L [id number] ####[facility] ([facility] [place] [address] Labon 10-29-2023 Lab [id number] Kim Barron 1955 M Date Provider Department Center 10/29/2023 [id number] MP LAB RESOURCE MP DRAW Medical Pavi Family History Problem Relation Age of Onset Heart attack Mother Uterine cancer Mother Hypertension Mother Lung cancer Father Comments: possibly Diabetes Sister Other Paternal Grandmother Family Status - Relation Status Age at Mother Father Sister Paternal Grandmother Normal [facility] Office Visiton 10-29-2023 Follow-up visit [id number] Kim Barron 1955 M Date Provider Department Center 10/29/2023 RASHAWN AMIN [facility] David Heal Family History Problem Relation Age of Onset Heart attack Mother Uterine cancer Mother Hypertension Mother Lung cancer Father Comments: possibly Diabetes Sister Other Paternal Grandmother Family Status - Relation Status Age at Mother Father Sister Paternal Grandmother Level of Service:21243 [place] OFFICE/OUTPATIENT ESTABLISHED MOD MDM 30 MIN (GC) Reason for Visit and Comments: Health Maintenance [619] HIV Positive/AIDS [109] - Taking meds consistently. No concerns Normal [facility] PSA, DIAGNOSTICon 10-29-2023 PROSTATE SPECIFIC AG (NG/ML) IN SER/PLAS 2.2 ng/mL Normal 0.4-[address] [facility] Comment on above: Performed By: #### L [id number] ####[facility] ([facility])[address] [place] [address] RPRon 10-29-2023 REAGIN AB PRESENCE IN SERUM BY RPR Non-Reactive Normal Nonreactive [facility] Comment on above: Performed By: #### L [id number] #### [facility] ([facility] [address] [place] [address] T CELL SUBSET ANALYSISon CD3 83.05 % Normal 65.00-90.[address] [facility] Comment on above: Performed By: #### L [id number] #### [facility] ([facility] [address] [place] [address] CD3 ABSOLUTE 1813 cells/mm3 Normal 760-2130 [facility] Comment on above: Performed By: #### L [id number] #### [facility] ([facility]) [address] [place] [address] CD4 55.49 % Normal 40.00-70.[address] [facility] Comment on above: Performed By: #### L [id number] #### [facility] ([facility]) [address] [place] [address] CD4 ABSOLUTE 1211 cells/mm3 High 430-1185 [facility] Comment on above: Performed By: #### L [id number] #### [facility] ([facility]) [address] [place] [address] CD4:CD8 2.11 Normal 1.00-4.[address] [facility] Comment on above: Performed By: #### L [id number] #### [facility] ([facility]) [address] [place] [address] CD8 26.30 % Normal 15.00-40.[address] [facility] Comment on above: Performed By: #### L [id number] #### [facility] ([facility]) [address] [place] [address] CD8 ABSOLUTE 574 cells/mm3 Normal 180-865 [facility] Comment on above: Performed By: #### L [id number] #### [facility] ([facility]) [address] [place] [address] 36on 10-18-2023 36 Jeremiah needs a follow up appointment scheduled before I will refill his medication. Normal [facility] Refillon 10-17-2023 Refill [id number] Kim Barron 1955 M Date Provider Department Center 10/17/2023 KIANA MOSCOSO [facility] David Heal Family History Problem Relation Age of Onset Heart attack Mother Uterine cancer Mother Hypertension Mother Lung cancer Father Comments: possibly Diabetes Sister Other Paternal Grandmother Family Status - Relation Status Age at Mother Father Sister Paternal Grandmother Reason for Visit and Comments: Med Refill [[id number]] Normal [facility] 36on 10-07-2023 36 Last visit 3 Next visit 10/29/2023 08/24/2023 creat 1.13 06/24/2023 cd4 1,158 10/30/2021 VL not det Normal [facility] Refillon 10-07-2023 Refill [id number] Kim Barron 1955 M [facility] Provider Department Center 10/07/2023 HEIDY ERICKSON [facility] Family History Problem Relation Age of Onset Heart attack Mother Uterine cancer Mother Hypertension Mother Lung cancer Father Comments: possibly Diabetes Sister Other Paternal Grandmother Family Status - Relation Status Age at Mother Father Sister Paternal Grandmother Reason for Visit and Comments: Med Refill [[id number]] Normal [facility] Refillon 09-23-2023 Refill [id number] Kim Barron 1955 [facility] Provider Department Center 09/23/2023 VISHAL WATT [facility] Family History Problem Relation Age of Onset Heart attack Mother Uterine cancer Mother Hypertension Mother Lung cancer Father Comments: possibly Diabetes Sister Other Paternal Grandmother Family Status - Relation Status Age at Mother Father Sister Paternal Grandmother Reason for Visit and Comments: Med Refill [[id number]] Normal [facility] Consulton 09-08-2023 Consult [id number] Kim Barron 1955 [facility] Provider Department Center 09/08/2023 BETH RAMIREZ [facility] [place] Family History Problem Relation Age of Onset Heart attack Mother Uterine cancer Mother Hypertension Mother Lung cancer Father Comments: possibly Diabetes Sister Other Paternal Grandmother Family Status - Relation Status Age at Mother Father Sister Paternal Grandmother Level of Service:54622 [place] OFFICE/OUTPATIENT NEW MODERATE MDM 45 MINUTES Reason for Visit and Comments: Elevated PSA [[id number]] Normal [facility] URINALYSISon 09-08-2023 BILIRUBIN, TOTAL PRESENCE IN URINE Negative Normal Negative [facility] Comment on above: Performed By: #### L [id number] #### [facility] ([facility]) [address] [place] [address] Clarity (U) Clear Normal Clear [facility] Comment on above: Performed By: #### L [id number] #### [facility] ([facility] [address] [place] [address] Color (U) Yellow Normal Yellow [facility] Comment on above: Performed By: #### L [id number] #### [facility] ([facility] [address] [place] [address] Glucose (U) [Mass/Vol] Negative Normal Negative [facility] Comment on above: Performed By: #### L [id number] #### [facility] ([facility]) [address] [place] [address] HEMOGLOBIN PRESENCE IN URINE Negative Normal Negative [facility] Comment on above: Performed By: #### L [id number] #### [facility] ([facility] [address] [place] [address] Ketones Ql (U) Trace Abnormal Negative [facility] Comment on above: Performed By: #### L [id number] #### [facility] ([facility]) [address] [place] [address] LEUKOCYTE ESTERASE PRESENCE IN URINE BY TEST STRIP Trace Abnormal Negative [facility] Comment on above: Performed By: #### L [id number] #### [facility] ([facility] [address] [place] [address] NITRITE PRESENCE IN URINE Negative Normal Negative [facility] Comment on above: Performed By: #### L [id number] #### [facility] ([facility] [place] [address] [place] [address] pH (U) 5.0 [pH] Normal 5.0-8.[address] [facility] Comment on above: Performed By: #### L [id number] #### [facility] ([facility]) [address] [place] [address] Protein (U) [Mass/Vol] Negative Normal Negative [facility] Comment on above: Performed By: #### L [id number] #### [facility] ([facility]) [address] [place] [address] Specific gravity (U) [Rel density] 1.031 High 1.015-1.[address] [facility] Comment on above: Performed By: #### L [id number] #### [facility] ([facility]) [address] [place] [address] UROBILINOGEN (EU/DL) IN URINE 2.0 EU/dL Abnormal Negative [facility] Comment on above: Performed By: #### L [id number] #### [facility] [address] [place] [address] URINALYSIS MICROSCOPICon CALCIUM OXALATE CRYSTALS (#/HPF) IN URINE Moderate Abnormal None Seen [facility] Comment on above: Performed By: #### L [id number] #### [facility] ([facility] [address] [place] [address] CASTS IN URINE Present Abnormal None Seen [facility] Comment on above: Performed By: #### L [id number] #### [facility] ([facility]) [address] [place] [address] CRYSTALS IN URINE Present Abnormal None Seen [facility] Comment on above: Performed By: #### L [id number] #### [facility] ([facility]) [address] [place] [address] HYALINE CASTS /LPF IN URINE SEDIMENT BY MICROSCOPY 1 /LPF High <[address] [facility] Comment on above: Performed By: #### L [id number] #### [facility] ([facility]) [address] [place] [address] MUCUS (#/HPF) IN URINE SEDIMENT Few Normal None Seen, Occasional, Few [facility] Comment on above: Performed By: #### L [id number] #### [facility] ([facility]) [address] [place] [address] RBC (#/HPF) IN URINE SEDIMENT 0-2 Abnormal None Seen [facility] Comment on above: Performed By: #### L [id number] #### [facility] ([facility] [address] [place] [address] SQUAMOUS EPITHELIAL CELLS (#/HPF) IN URINE SEDIMENT Occasional Normal None Seen, Occasional [facility] Comment on above: Performed By: #### L [id number] #### [facility] ([facility]) [address] [place] [address] WBC (LEUKOCYTE) (#/HPF) IN URINE SEDIMENT 3-5 Abnormal None Seen [facility] Comment on above: Performed By: #### L [id number] #### [facility] ([facility]) [address] [place] [address] URINE CULTURE, ROUTINEon Bacteria identified Cx Nom (U) <10,000 CFU/ML No Significant Growth Normal [facility] Comment on above: Performed By: #### L [id number] #### [facility] ([facility]) [address] [place] [address] 36on 09-03-2023 36 Spoke with patient a nd informed patient that replacement prescription was sent over to preferred pharmacy. 09/03/2023 [facility] 36 Called patient in response to voicemail message left on nurse line regarding his prescription inhaler. Patient states his new insurance will no longer cover the Advair inhaler. Patient stated Dulera was given as a suitable replacement option by his insurance and is wondering if a replacement prescription could be sent. Patient stated the [facility] in [place], [place] is his preferred pharmacy. 09/03/2023 [facility] Orders Onlyon 08-26-2023 Orders Only [id number] Kim Barron 1955 M Date Provider Department Center 08/26/2023 RASHAWN AMIN [facility] History Problem Relation Age of Onset Heart attack Mother Uterine cancer Mother Hypertension Mother Lung cancer Father Comments: possibly Diabetes Sister Other Paternal Grandmother Family Status - Relation Status Age at Mother Father Sister Paternal Grandmother [facility] Telephoneon 08-26-2023 Telephone [phone] Kim Barron 1955 M Date Provider Department Center 08/26/[address] [place] [address] CARE [facility] Family History Problem Relation Age of Onset Heart attack Mother Uterine cancer Mother Hypertension Mother Lung cancer Father Comments: possibly Diabetes Sister Other Paternal Grandmother Family Status - Relation Status Age at Mother Father Sister Paternal Grandmother Reason for Visit and Comments: Medication Problem [65] - Jeremiah called stating the insurance will not cover the Advair 250 - 50 diskus. Needs a medication that is covered by his insurance. States they will cover the Advair HFA and Dulera. Also, recently was sent for lung screening. During that process CA was found in lung and prostate. Was originally seeing a urologist at [facility] but had an incident at [facility] with wrong information being placed in his chart so is looking to transfer care to a new urologist - needs referral. Normal [facility] BASIC METABOLIC PANLon 08-24 Anion gap [Moles/Vol] 6 mmol/L Normal 5-15 [facility] Comment on above: Performed By: #### C ERIC BMP, 60950-7 #### [facility] ([id number]) [address] [place] [address] Calcium [Mass/Vol] 9.1 mg/dL Normal 8.5-10.5 [facility] Comment on above: Performed By: #### C ERIC BMP, #### [facility] ([id number]) [address] [place] [address] Chloride [Moles/Vol] 104 mmol/L Normal 98-109 [facility] Comment on above: Performed By: #### C BCA BMP, #### [facility] ([id number]) [address] [place] [address]120 CO2 [Moles/Vol] 26 mmol/L Normal 22-32 [facility] Comment on above: Performed By: #### C BCA BMP, #### [facility] ([id number]) [address] [place] [address] Creatinine [Mass/Vol] 1.13 mg/dL Normal 0.70-1.20 [facility] Comment on above: Result Comment: METH OD TRACEABLE TO IDMS STANDARD Performed By: #### C JOANIE REYES, #### [facility] ([id number]) [address] [place] [address] GFR/1.73 sq M.predicted among non-blacks MDRD (S/P/Bld) [Vol rate/Area] 72 mL/min/{1.73_m2} Normal >59 [facility] Comment on above: Result Comment: Reported eGFR is based on the CKD-EPI 2020 equation that does not use a race coefficient. Performed By: #### C JOANIE REYES, #### [facility] ([id number]) [address] [place] [address] Glucose [Mass/Vol] 87 mg/dL Normal 65-99 [facility] Comment on above: Performed By: #### C JOANIE REYES, #### [facility] ([id number]) [address] [place] [address]1470 Potassium [Moles/Vol] 4.3 mmol/L Normal 3.5-5.0 [facility] Comment on above: Performed By: #### C JOANIE REYES, #### [facility] ([id number]) [address] [place] [address] 80542 Sodium [Moles/Vol] 136 mmol/L Normal 134-146 [facility] Comment on above: Performed By: #### C JOANIE REYES, #### [facility] ([id number]) [address] [place] [address]48[address] Urea nitrogen [Mass/Vol] 17 mg/dL Normal 5-27 [facility] Comment on above: Performed By: #### C JOANIE REYES, #### [facility] ([id number]) [address] [place] [address] CBC AND AUTO DIFFon 08-24-19 24 ABSOLUTE BASOPHIL 0.0 X10E9/L Normal 0.0-0.2 [facility] Comment on above: Performed By: #### C JOANIE REYES, #### [facility] ([id number]) [address] [place] [address]17 ABSOLUTE NEUTROPHIL 4.2 X10E9/L Normal 1.5-6.6 [facility] Comment on above: Performed By: #### C JOANIE REYES, #### [facility] ([id number]) [address] [place] [address] 79234 Basophils/100 WBC (Bld) 0.6 % Normal [facility] Comment on above: Performed By: #### C ERIC [facility], #### [facility] ([id number]) [address] [place] [address] 93853 Eosinophils (Bld) [#/Vol] 0.3 10*3/uL Normal 0.0-0.4 [facility] Comment on above: Performed By: #### C JOANIE REYES, #### [facility] ([id number]) [address] [place] [address] 72269 Eosinophils/100 WBC (Bld) 3.9 % Normal [facility] Comment on above: Performed By: #### C JOANIE REYES, #### [facility] ([id number]) [address] [place] [address] Erythrocyte distribution width (RBC) [Ratio] 13.9 % Normal 11.5-15.0 [facility] Comment on above: Performed By: #### C JOANIE REYES, #### [facility] ([id number]) [address] [place] [address]1839 Hematocrit (Bld) [Volume fraction] 44.6 % Normal 39-49 [facility] Comment on above: Performed By: #### Haylee REYES [facility], #### [facility] ([id number]) [address] [place] [address] 23169 Hemoglobin (Bld) [Mass/Vol] 15.3 g/dL Normal 13.0-17.0 [facility] Comment on above: Performed By: #### C ERIC [facility], #### [facility] ([id number]) [address] [place] [address] 33351 Lymphocytes (Bld) [#/Vol] 1.7 10*3/uL Normal 1.0-3.5 [facility] Comment on above: Performed By: #### Haylee REYES [facility], #### [facility] ([id number]) [address] [place] [address] 34979 Lymphocytes/100 WBC (Bld) 24.9 % Normal [facility] Comment on above: Performed By: #### Haylee REYES [facility], #### [facility] ([id number]) [address] [place] [address] 07852 MCH (RBC) [Entitic mass] 33.9 pg Normal 27-34 [facility] Comment on above: Performed By: #### Haylee REYES [facility], #### [facility] ([id number]) [address] [place] [address] 56087 MCHC (RBC) [Mass/Vol] 34.4 g/dL Normal 32-36 [facility] Comment on above: Performed By: #### Haylee REYES [facility], #### [facility] ([id number]) [address] [place] [address] 48774 MCV (RBC) [Entitic vol] 99 fL Normal 80-100 [facility] Comment on above: Performed By: #### JOANIE Leach BCA, #### [facility] ([id number]) [address] [place] [address] 71576 Monocytes (Bld) [#/Vol] 0.6 10*3/uL Normal 0-0.9 [facility] Comment on above: Performed By: #### JOANIE Leach BCA, #### [facility] ([id number]) [address] [place] [address] 21125 Monocytes/100 WBC (Bld) 8.9 % Normal [facility] Comment on above: Performed By: #### JOANIE Laech BCA, #### [facility] ([id number]) [address] [place] [address] 45023 Neutrophils/100 WBC (Bld) 61.7 % Normal [facility] Comment on above: Performed By: #### JOANIE Leach BCA, #### [facility] ([id number]) [address] [place] [address] 94885 Platelet mean volume (Bld) [Entitic vol] 8.1 fL Normal 7-12 [facility] Comment on above: Performed By: #### JOANIE Leach BCA, #### [facility] ([id number]) [address] [place] [address] 44748 Platelets (Bld) [#/Vol] 223 10*3/uL Normal 150-450 [facility] Comment on above: Performed By: #### JOANIE Leach BCA, #### [facility] ([id number]) [address] [place] [address] 13702 RBC COUNT 4.53 X10E12/L Normal 4.10-5.70 [facility] Comment on above: Performed By: #### JOANIE Leach BCA, 94470-9 #### [facility] ([id number]) [address] [place] [address] WBC (Bld) [#/Vol] 6.9 10*3/uL Normal 4.0-11.0 [facility] Comment on above: Performed By: #### C JOANIE REYES, 78347-6 #### [facility] ([id number]) [address] [place] [address] CT ABDOMEN AND PELVIS WO CON Ton 08-24-2023 CT ABDOMEN AND PELVIS WO CONT CT ABDOMEN AND PELVIS WO CONT CLINICAL INFORMATION: Abdominal/flank pain, stone suspected. TECHNIQUE: CT Abdomen and Pelvis without intravenous contrast. All CT scans at this facility use dose modulation, iterative reconstruction, and/or weight based dosing when appropriate to reduce radiation dose to as low as reasonably achievable. COMPARISON: CT abdomen pelvis 09/20/2020 FINDINGS: Unchanged scarring at the left lung base. The liver, spleen, pancreas, and adrenal glands are grossly unremarkable for noncontrast technique. Small calcified gallstones. No evidence of acute cholecystitis. No overt biliary dilatation. Benign right renal cyst which are no further follow-up. No collecting system dilatation or stones. Bladder is unremarkable. Pelvic organs are unremarkable. Postsurgical changes of a partial colectomy. Moderate amount of stool in the colon. Tortuous course of the colon. Small bowel is nondistended without evidence of obstruction. Stool and small bowel suggests a slow bowel transit. Stomach is unremarkable. No free air. No free fluid. The abdominal aorta is normal in course and caliber. Moderate atheromatous vascular calcifications no enlarged lymph nodes. Mild degenerative changes in the spine. Vertebral body heights are maintained. Rectus diastases. IMPRESSION: * No acute process in the abdomen or pelvis. Specifically no renal collecting system dilatation or stones. * Moderate colonic stool burden. Finalized by Gera Spencer MD on 08/24/2023 2:30 PM Normal [facility] MAGNESIUMon 08-24-2023 Magnesium [Mass/Vol] 2.0 mg/dL Normal 1.8-2.6 [facility] Comment on above: Performed By: #### C JOANIE REYES, 15541-7 #### [facility] ([id number]) [address] [place] [address]50 URINE CULTUREon 08-24-2023 Bacteria identified Cx Nom (U) CULTURE RESULTS NO GROWTH AT <1000 CFU/mL Normal [facility] Comment on above: Performed By: #### 6 30-4 #### [facility] ([id number]) [address] [place] [address], [address] [place] [address] URN MACROSCOPIC NURon 2023 BILIRUBIN MARY Negative Normal NEG [facility] Comment on above: Performed By: #### N UM #### [facility] ([id number]) [address] [place] [address] 32681 BLOOD/HGB MARY Trace Abnormal NEG [facility] Comment on above: Performed By: #### N UM #### [facility] ([id number]) [address] [place] [address] [place] [address] GLUCOSE MARY Negative Normal NEG [facility] Comment on above: Performed By: #### N UM #### [facility] ([id number]) [address] [place] [address] [place] [address] KETONES MARY Negative Normal NEG [facility] Comment on above: Performed By: #### N UM #### [facility] ([id number]) [address] [place] [address] [place] [address] LEUKOCYTE ESTERASE MARY Negative Normal NEG [facility] Comment on above: Performed By: #### N UM #### [facility] ([id number]) [address] [place] [address] [place] [address] NITRITE MARY Negative Normal NEG [facility] Comment on above: Performed By: #### N UM #### [facility] ([id number]) [address] [place] [address] 76103 PH MARY 7.0 Normal 5.0-8.5 [facility] Comment on above: Performed By: #### N UM #### [facility] ([id number]) [address] [place] [address] [place] [address] PROTEIN MARY Negative Normal NEG [facility] Comment on above: Performed By: #### N UM #### [facility] ([id number]) [address] [place] [address] [place] [address] SPECIFIC GRAVITY MARY 1.015 Normal 1.003-1.035 [facility] Comment on above: Performed By: #### N UM #### [facility] ([id number]) [address] [place] [address] [place] [address] UROBILINOGEN MARY 0.2 eu/dL Normal <1.1 [facility] Comment on above: Performed By: #### N UM #### [facility] ([id number]) [address] [place] [address], [place] [address] BILIRUBIN MARY Negative Normal NEG [facility] Comment on above: Performed By: #### N UM #### [facility] ([id number]) [address] [place] [address] [place] [address] BLOOD/HGB MARY Negative Normal NEG [facility] Comment on above: Performed By: #### N UM #### [facility] ([id number]) [address] [place] [address] [place] [address] GLUCOSE MARY Negative Normal NEG [facility] Comment on above: Performed By: #### N UM #### [facility] ([id number]) [address] [place] [address], [place] [address] KETONES MARY Negative Normal NEG [facility] Comment on above: Performed By: #### N UM #### [facility] ([id number]) [address] [place] [address], [place] [address] LEUKOCYTE ESTERASE MARY Negative Normal NEG [facility] Comment on above: Performed By: #### N UM #### [facility] ([id number]) [address] [place] [address]97[address] NITRITE MARY Negative Normal NEG [facility] Comment on above: Performed By: #### N UM #### [facility] ([id number]) [address] [place] [address] 69402 PH MARY 7.0 Normal 5.0-8.5 [facility] Comment on above: Performed By: #### N UM #### [facility] ([id number]) [address] [place] [address] 39[address] PROTEIN MARY Negative Normal NEG [facility] Comment on above: Performed By: #### N UM #### [facility] ([id number]) [address] [place] [address]33 SPECIFIC GRAVITY MARY 1.010 Normal 1.003-1.035 [facility] Comment on above: Performed By: #### N UM #### [facility] ([id number]) [address] [place] [address]201 UROBILINOGEN MARY 0.2 eu/dL Normal <1.1 [facility] Comment on above: Performed By: #### N UM #### [facility] ([id number]) [address] [place] [address] 69747 MR PROSTATE W WO CONTon 01-3 MR PROSTATE W WO CONT MR PROSTATE W WO CONT CLINICAL INFORMATION: Elevated PSA. 6.16. TURP. TECHNIQUE: Multisequence multiplanar MRI of the prostate without and with contrast in accordance with PI-RADS technical recommendations. COMPARISON: 04/16/2020 FINDINGS: Size: 4.0 x 2.9?x 3.9 cm Volume: 24 mL PSA Density: 0.26 ng/mL^2 FINDINGS: Surgical changes from TURP. PERIPHERAL ZONE: No suspicious lesions. TRANSITIONAL ZONE: No suspicious lesions. There is multinodular enlargement of the transition zone, in keeping with BPH changes. Neurovascular Bundles: No asymmetric thickening. Seminal Vesicles: No focal lesions. Pelvic Lymph Nodes: No enlarged lymph nodes. Bones: Within normal limits. Other findings: None. IMPRESSION: * PI-RADS 2: Low (clinically significant cancer is unlikely to present). Finalized by Jaspreet Denny MD on 08/10/2023 3:44 PM Normal [facility] Documentationon 08-09-2023 Documentation [id number] Kim Barron 1955 M Date Provider Department Center 08/09/2023 PANCHITO TORRES [facility] Family History Problem Relation Age of Onset Heart attack Mother Uterine cancer Mother Hypertension Mother Lung cancer Father Comments: possibly Diabetes Sister Other Paternal Grandmother Family Status - Relation Status Age at Mother Father Sister Paternal Grandmother Normal [facility] URINALYSISon 08-03-2023 Bilirubin Ql (U) Negative Normal NEG [facility] BLOOD/HGB Small Abnormal NEG [facility] CA OXALATE CRYSTALS PRESENT Abnormal [facility] Color (U) YELLOW Normal YELLOW [facility] Glucose Ql (U) 50 mg/dL Abnormal NEG [facility] Hyaline casts LM Ql (Urine sed) 5 /lpf High 0-2 [facility] Ketones Ql (U) Trace Abnormal NEG [facility] Leukocyte esterase Test strip Ql (U) Large Abnormal NEG [facility] MUCOUS PRESENT Abnormal [facility] Nitrite Ql (U) Negative Normal NEG [facility] pH (U) 6.0 [pH] Normal 5.0-8.5 [facility] Protein Ql (U) 50 mg/dL Abnormal NEG [facility] R.B.CELLS 8 /hpf High 0-5 [facility] Specific gravity (U) [Rel density] 1.029 Normal 1.003-1.035 [facility] SQUAMOUS EPITHELIUM 1 /hpf Normal 0-5 [facility] TURBIDITY HAZY Abnormal CLEAR [facility] Urobilinogen Qn (U) 3 {Judith'U}/dL High <1.1 [facility] W.B.CELLS 165 /hpf High 0-5 [facility] URINE CULTUREon 08-03-2023 Bacteria identified Cx Nom (U) CULTURE RESULTS >100,000 ORGANISMS/mL ESCHERICHIA COLI [ S = SUSCEPTIBLE R = RESISTANT I = INTERMEDIATE S-DO = Susceptible-dose dependent NS = Non-suscceptible NO = No Interpretation ] Organism: ESCHERICHIA COLI Antibiotic Interpretation JOSHUA Status AMPICILLIN S <=2 F AMP/SULBACTAM S <=2/1 F CEFAZOLIN S <=4 F CEFTRIAXONE S <=1 F CIPROFLOXACIN S <=0.25 F GENTAMICIN S <=1 F LEVOFLOXACIN S <=0.12 F NITROFURANTOIN S 32 F PIPERACIL/TAZOBACTAM S <=4 F TOBRAMYCIN S <=1 F TRIMETH/SULFAMETHOXAZO LE S <=1/19 F Susceptible [facility] Comment on above: Performed By: #### 6 30-4 #### [facility] ([id number]) [address], [address] [place] [address] Orders Onlyon 07-01-2023 Orders Only [id number] Kim Barron S 1955 M Date Provider Department Center 07/01/2023 Prakash2-CHRISTIANO INGRAM [facility] ONC [facility] Family History Problem Relation Age of Onset Heart attack Mother Uterine cancer Mother Hypertension Mother Lung cancer Father Diabetes Sister Other Paternal Grandmother Family Status - Relation Status Age at Mother Father Sister Paternal Grandmother Normal [facility] Office Visiton 06-24-2023 Follow-up visit [id number] Kim Barron 1955 M Date Provider Department Center 06/24/2023 [id number] CHADWICK [facility] ONC [facility] Family History Problem Relation Age of Onset Heart attack Mother Uterine cancer Mother Hypertension Mother Lung cancer Father Diabetes Sister Other Paternal Grandmother Family Status - Relation Status Age at Mother Father Sister Paternal Grandmother Level of Service:03054 [place] PHYS/QHP TELEPHONE EVALUATION 21-30 MIN Reason for Visit and Comments: Lung Nodule [519] - BASE PLY HAND Refer Dr. Rashawn Carroll in [place], [place]CT 06/02/23 Lung RADS 4B - 1 cm right apex. PET completed 06/21/23 at [facility] Normal [facility] Orders Onlyon 06-22-2023 Orders Only [id number] Kim Barron 1955 M Date Provider Department Center 06/22/2023 DOMONIQUEGGAN RASHAWN [facility] David Hernández Family History Problem Relation Age of Onset Heart attack Mother Uterine cancer Mother Hypertension Mother Lung cancer Father Diabetes Sister Other Paternal Grandmother Family Status - Relation Status Age at Mother Father Sister Paternal Grandmother [facility] POCT GLUCOSE METER UNSOLICIT ED RESULTSon 06-21-2023 Glucose [Mass/Vol] 109 mg/dL High 70-105 [facility] Comment on above: Order Comment: Waive d Testing in the ED is performed under the ED CLIA certificate #[id number]. Result Comment: [email or web address] Performed By: #### L [id number] #### [facility] ([facility]ER) [address] [place] [address] CT ABD/PELVIS WO CONon 11-20 CT ABD/PELVIS WO CON EXAMINATION: CT ABD/PELVIS WO CON HISTORY: Hernia of anterior abdominal wall , chronic intermittent constipation COMPARISON: CT abdomen pelvis 01/08/2016 TECHNIQUE: Axial, Coronal, and Sagittal images were obtained without and/or with IV contrast as indicated by examination type. Dose reduction techniques were achieved by using automated exposure control and/or adjustment of mA and/or kV according to patient size and/or use of iterative reconstruction technique. FINDINGS: LUNG BASES: No visible pulmonary or pleural disease. LIVER: No enlargement, atrophy, suspicious density, or significant focal lesion. BILIARY: A few tiny stones within noninflamed gallbladder. PANCREAS: No lesion, fluid collection, or abnormal duct dilatation. SPLEEN: No enlargement or focal lesion. ADRENALS: No mass or enlargement. KIDNEYS: Right renal cysts. No mass, obstruction, or calcification. BOWEL/MESENTERY: Prior sigmoid resection and anastomosis. No visible mass, obstruction, or bowel wall thickening. Normal appendix. Unremarkable stomach and small bowel. AORTA/VASCULAR: No aneurysm or dissection. RETROPERITONEUM: No mass or adenopathy. LYMPH NODES: No adenopathy. URINARY BLADDER: No visible focal wall thickening, lesion, or calculus. PELVIC ORGANS: No visible mass. Pelvic organs appropriate for patient age. ABDOMINAL WALL: Small fat filled ventral hernia left lateral to the umbilicus. BONES: Moderate degenerative disc disease of lumbar spine. Mild to moderate degenerative changes of the hip joints. OTHER: Negative. IMPRESSION: 1. Cholelithiasis. 2.No bowel obstruction or suspicious findings. Prior sigmoid resection and anastomosis. 3.Left anterior abdominal wall small fat filled hernia without strangulation; likely at site of prior ostomy. Electronically authenticated by: JASPREET SEGOVIA Date: 2022-11-20 14:18 Normal [facility] HIV-1 RNA QUANTITATIVEon HIV-1 RNA BY PCR <40 Normal [facility] Comment on above: Result Comment: HIV- 1 RNA not detected . The reportable range for this assay is 40 to 10,000,000 copies HIV-1 RNA/mL. . Performed By: #### H IV1QNT #### [facility] [address] [place] [address] Dr. Deonna Santos log-10 HIV-1 RNA UPTCAL Normal [facility] Comment on above: Result Comment: Unab le to calculate result since non-numeric result obtained for component test. Performed By: #### H IV1QNT #### [facility] [address] [place] [address] Dr. Deonna Santos T CELL ACTIVATION PROFILE, C D8 SUBSETSon 09-11-2022 Basophils (Bld) [#/Vol] 0.1 10*3/uL Normal 0.0-0.2 [facility] Comment on above: Result Comment: Perf ormed at: CB Performed By: #### T CLCD8 #### [facility] [address] [place] [address] Dr. Deonna Santos Basophils/100 WBC (Bld) 1 % Normal Not Estab. [facility] Comment on above: Result Comment: Perf ormed at: CB Performed By: #### T CLCD8 #### [facility] [address] [place] [address] Dr. Deonna Santos Eosinophils (Bld) [#/Vol] 0.1 10*3/uL Normal 0.0-0.4 [facility] Comment on above: Result Comment: Perf ormed at: CB Performed By: #### T CLCD8 #### [facility] [address] [address] [address] Deonna Santos Eosinophils/100 WBC (Bld) 2 % Normal Not Estab. [facility] Comment on above: Result Comment: Perf ormed at: CB Performed By: #### T CLCD8 #### [facility] [address] [address] [address] Deonna Santos Hematology Comments Normal [facility] Comment on above: Result Comment: Perf ormed at: CB Performed By: #### T CLCD8 #### [facility] [address] [place] [address] Dr. Deonna Santos Immature Cells Normal [facility] Comment on above: Result Comment: Perf ormed at: CB Performed By: #### T CLCD8 #### [facility] [address] [place] [address] Dr. Deonna Santos Immature Grans (Abs) 0.0 x10E3/uL Normal 0.0-0.1 [facility] Comment on above: Result Comment: Perf ormed at: CB Performed By: #### T CLCD8 #### [facility] [address] [place] [address] Dr. Deonna Santos Immature granulocytes/100 WBC (Bld) 0 % Normal Not Estab. [facility] Comment on above: Result Comment: Perf ormed at: CB Performed By: #### T CLCD8 #### [facility] [address] [place] [address] Dr. Deonna Santos Lymphocytes (Bld) [#/Vol] 2.4 10*3/uL Normal 0.7-3.1 [facility] Comment on above: Result Comment: Perf ormed at: CB Performed By: #### T CLCD8 #### [facility] [address] [place] [address] Dr. Deonna Santos Monocytes (Bld) [#/Vol] 0.7 10*3/uL Normal 0.1-0.9 [facility] Comment on above: Result Comment: Perf ormed at: CB Performed By: #### T CLCD8 #### [facility] [address] [place] [address] Dr. Deonna Santos Neutrophils Absolute 5.7 x10E3/uL Normal 1.4-7.0 [facility] Comment on above: Result Comment: Perf ormed at: CB Performed By: #### T CLCD8 #### [facility] [address] [place] [address] Dr. Deonna Santos NRBC Normal [facility] Comment on above: Result Comment: Perf ormed at: CB Performed By: #### T CLCD8 #### [facility] [address] [place] [address] Dr. Deonna Santos %CD3+CD25+Lymphs 26.8 % Critically high 4.9-25.9 [facility] Comment on above: Result Comment: This test was developed and its performance characteristics determined by [facility]. It has not been cleared or approved by the Food and Drug Administration. Performed at: BN Performed By: #### T CLCD8 #### [facility] [address] [place] [address] Dr. Deonna Santos %CD8+CD38+Lymphs 5.0 % Normal 0.0-17.7 [facility] Comment on above: Result Comment: This test was developed and its performance characteristics determined by [facility]. It has not been cleared or approved by the Food and Drug Administration. Performed at: BN Performed By: #### T CLCD8 #### [facility] [address] [place] [address] Dr. Deonna Santos %CD8+HLA-DR+Lymphs 4.1 % Normal 0.0-4.9 [facility] Comment on above: Result Comment: This test was developed and its performance characteristics determined by [facility]. It has not been cleared or approved by the Food and Drug Administration. Performed at: BN Performed By: #### T CLCD8 #### [facility] [address] [place] [address] Dr. Deonna Santos Abs CD 4 helper 1315 /uL Normal 359-1519 [facility] Comment on above: Result Comment: Perf ormed at: CB Performed By: #### T CLCD8 #### [facility] [address] [address] [address] Deonna Santos Abs. CD 8 Supp 653 /uL Normal 109-897 [facility] Comment on above: Result Comment: Perf ormed at: CB Performed By: #### T CLCD8 #### [facility] [address] [address] [address] Deonna Santos Abs. CD8+HLA-DR+Lymph 98 /uL Normal 0-117 [facility] Comment on above: Result Comment: This test was developed and its performance characteristics determined by [facility]. It has not been cleared or approved by the Food and Drug Administration. Performed at: CB Performed By: #### T CLCD8 #### [facility] [address] [place] [address] Dr. Deonna Santos Abs.CD3+CD25+Lymphs 643 /uL Critically high 79-535 [facility] Comment on above: Result Comment: This test was developed and its performance characteristics determined by [facility]. It has not been cleared or approved by the Food and Drug Administration. Performed at: CB Performed By: #### T CLCD8 #### [facility] [address] [address] [address] Deonna Santos Abs.CD8+CD38+Lymphs 120 /uL Normal 0-381 [facility] Comment on above: Result Comment: This test was developed and its performance characteristics determined by [facility]. It has not been cleared or approved by the Food and Drug Administration. Performed at: CB Performed By: #### T CLCD8 #### [facility] [address] [place] [address] Dr. Deonna Santos Absolute CD 3 1951 /uL Normal [phone] [facility] Comment on above: Result Comment: Perf ormed at: CB Performed By: #### T CLCD8 #### [facility] [address] [place] [address] Dr. Deonna Santos CD4/CD8 Ratio 2.01 Normal 0.92-3.72 [facility] Comment on above: Result Comment: Perf ormed at: BN Performed By: #### T CLCD8 #### [facility] [address] [place] [address] Dr. Deonna Santos Erythrocyte distribution width (RBC) [Ratio] 12.6 % Normal 11.6-15.4 [facility] Comment on above: Result Comment: Perf ormed at: CB Performed By: #### T CLCD8 #### [facility] [address] [place] [address] Dr. Deonna Santos Hematocrit (Bld) [Volume fraction] 47.6 % Normal 37.5-51.0 [facility] Comment on above: Result Comment: Perf ormed at: CB Performed By: #### T CLCD8 #### [facility] [address] [place] [address] Dr. Deonna Santos Hemoglobin (Bld) [Mass/Vol] 16.6 g/dL Normal 13.0-17.7 [facility] Comment on above: Result Comment: Perf ormed at: CB Performed By: #### T CLCD8 #### [facility] [address] [place] [address] Dr. Deonna Santos Lymphocytes/100 WBC (Bld) 81.3 % Normal 57.5-86.2 [facility] Comment on above: Result Comment: Perf ormed at: BN Performed By: #### T CLCD8 #### [facility] [address] [place] [address] Dr. Deonna Santos Lymphocytes/100 WBC (Bld) 54.8 % Normal 30.8-58.5 [facility] Comment on above: Result Comment: Perf ormed at: BN Performed By: #### T CLCD8 #### [facility] [address] [place] [address] Dr. Deonna Santos Lymphocytes/100 WBC (Bld) 27.2 % Normal 12.0-35.5 [facility] Comment on above: Result Comment: Perf ormed at: BN Performed By: #### T CLCD8 #### [facility] [address] [place] [address] Dr. Deonna Santos Lymphocytes/100 WBC (Bld) 27 % Normal Not Estab. [facility] Comment on above: Result Comment: Perf ormed at: CB Performed By: #### T CLCD8 #### [facility] [address] [place] [address] Dr. Deonna Santos MCH (RBC) [Entitic mass] 33.3 pg Critically high 26.6-33.0 [facility] Comment on above: Result Comment: Perf ormed at: CB Performed By: #### T CLCD8 #### [facility] [address] [place] [address] Dr. Deonna Santos MCHC (RBC) [Mass/Vol] 34.9 g/dL Normal 31.5-35.7 [facility] Comment on above: Result Comment: Perf ormed at: CB Performed By: #### T CLCD8 #### [facility] [address] [place] [address] Dr. Deonna Santos MCV (RBC) [Entitic vol] 95 fL Normal 79-97 [facility] Comment on above: Result Comment: Perf ormed at: CB Performed By: #### T CLCD8 #### [facility] [address] [place] [address] Dr. Deonna Santos Monocytes/100 WBC (Bld) 8 % Normal Not Estab. [facility] Comment on above: Result Comment: Perf ormed at: CB Performed By: #### T CLCD8 #### [facility] [address] [place] [address] Dr. Deonna Santos Neutrophils/100 WBC (Bld) 62 % Normal Not Estab. [facility] Comment on above: Result Comment: Perf ormed at: CB Performed By: #### T CLCD8 #### [facility] [address] [place] [address] Dr. Deonna Santos Platelets (Bld) [#/Vol] 252 10*3/uL Normal 150-450 [facility] Comment on above: Result Comment: Perf ormed at: CB Performed By: #### T CLCD8 #### [facility] [address] [place] [address] Dr. Deonna Santos RBC (Bld) [#/Vol] 4.99 10*6/uL Normal 4.14-5.80 [facility] Comment on above: Result Comment: Perf ormed at: CB Performed By: #### T CLCD8 #### [facility] [address] [place] [address] Dr. Deonna Santos WBC (Bld) [#/Vol] 9.1 10*3/uL Normal 3.4-10.8 [facility] Comment on above: Result Comment: Perf ormed at: CB Performed By: #### T CLCD8 #### [facility] [address] [place] [address] Dr. Deonna Santos RPR QUANTon 09-10-2022 Rapid Plasma Reagin, Quant Non-Reactive Normal NonRea<1:1 [facility] Comment on above: Result Comment: Plea se Note: This test does not meet current guidelines for screening and diagnosis of syphilis. This test is intended for following treatment response in patients being treated for syphilis infection. To screen for syphilis infection, a reflex cascade that includes both RPR and a treponema-specific assay should be utilized, such as Treponema pallidum (Syphilis) Screening [place] (224233) or Rapid Plasma Reagin (RPR) Test With Reflex to Quantitative RPR and Confirmatory Treponema pallidum Antibodies (720566). Performed By: #### R PRQ #### [facility] [address] [place] [address] Dr. Deonna Santos CBC AUTO DIFFon 05-27-2022 BASO # 0.1 103/ul Normal 0.0-0.1 [facility] Comment on above: Performed By: #### C BC #### [facility] [address] [place] [address] Dr. Deonna Santos Basophils/100 WBC (Bld) 1.2 % Normal 0.2-2.0 [facility] Comment on above: Performed By: #### C BC #### [facility] [address] [place] [address] Dr. Deonna Santos EO # 0.2 103/ul Normal 0.0-0.7 [facility] Comment on above: Performed By: #### C BC #### [facility] [address] [place] [address] Dr. Deonna Santos Eosinophils/100 WBC (Bld) 2.7 % Normal 0.9-7.0 [facility] Comment on above: Performed By: #### C BC #### [facility] [address] [place] [address] Dr. Deonna Santos Erythrocyte distribution width (RBC) [Ratio] 12.7 % Normal 11.0-15.0 [facility] Comment on above: Performed By: #### C BC #### [facility] [address] [place] [address] Dr. Deonna Santos Hematocrit (Bld) [Volume fraction] 47.7 % Normal 42.0-54.0 [facility] Comment on above: Performed By: #### C BC #### [facility] [address] [place] [address] Dr. Deonna Santos Hemoglobin (Bld) [Mass/Vol] 16.5 g/dL Normal 14.0-18.0 [facility] Comment on above: Performed By: #### C BC #### [facility] [address] [place] [address] Dr. Deonna Santos IG # 0.02 10e3/ul Normal 0.00-0.03 [facility] Comment on above: Performed By: #### C BC #### [facility] [address] [place] [address] Dr. Deonna Santos IG % 0.3 % Normal 0.0-0.5 [facility] Comment on above: Performed By: #### C BC #### [facility] [address] [place] [address] Dr. Deonna Santos LYMPH # 2.2 103/ul Normal 1.2-3.8 [facility] Comment on above: Performed By: #### C BC #### [facility] [address] [place] [address] Dr. Deonna Santos Lymphocytes/100 WBC (Bld) 29.0 % Normal 20.5-60.0 [facility] Comment on above: Performed By: #### C BC #### [facility] [address] [place] [address] Dr. Deonna Santos MANUAL DIFF REQ NO Normal [facility] Comment on above: Performed By: #### C BC #### [facility] [address] [place] [address] Dr. Deonna Santos MCH (RBC) [Entitic mass] 33.7 pg Normal 25.9-34.0 [facility] Comment on above: Performed By: #### C BC #### [facility] [address] [place] [address] Dr. Deonna Santos MCHC (RBC) [Mass/Vol] 34.6 g/dL Normal 29.9-35.2 [facility] Comment on above: Performed By: #### C BC #### [facility] [address] [place] [address] Dr. Deonna Santos MCV (RBC) [Entitic vol] 97.3 fL Critically high 80.0-94.0 [facility] Comment on above: Performed By: #### C BC #### [facility] [address] [place] [address] Dr. Deonna Santos MONO # 0.6 103/ul Normal 0.3-0.8 [facility] Comment on above: Performed By: #### C BC #### [facility] [address] [place] [address] Dr. Deonna Santos Monocytes/100 WBC (Bld) 7.8 % Normal 1.7-12.0 [facility] Comment on above: Performed By: #### C BC #### [facility] [address] [place] [address] Dr. Deonna Santos NEUT # 4.4 103/ul Normal 1.4-6.5 [facility] Comment on above: Performed By: #### C BC #### [facility] [address] [place] [address] Dr. Deonna Santos Neutrophils/100 WBC (Bld) 59.0 % Normal 43.0-75.0 [facility] Comment on above: Performed By: #### C BC #### [facility] [address] [place] [address] Dr. Deonna Santos Platelet mean volume (Bld) [Entitic vol] 9.3 fL Critically low 9.5-13.5 [facility] Comment on above: Performed By: #### C BC #### [facility] [address] [place] [address] Dr. Deonna Santos PLT 259 103/ul Normal 150-450 [facility] Comment on above: Performed By: #### C BC #### [facility] [address] [place] [address] Dr. Deonna Santos RBC 4.90 106/ul Normal 4.70-6.10 [facility] Comment on above: Performed By: #### C BC #### [facility] [address] [place] [address] Dr. Deonna Santos WBC 7.5 103/ul Normal 4.0-11.0 [facility] Comment on above: Performed By: #### C BC #### [facility] [address] [place] [address] Dr. Deonna Santos PROF CHEM 8 (BAS METB)on Anion gap [Moles/Vol] 10.3 mmol/L Normal [facility] Comment on above: Performed By: #### B MP #### [facility] [address] [place] [address] Dr. Deonna Santos Calcium [Mass/Vol] 9.3 mg/dL Normal 8.5-10.1 [facility] Comment on above: Performed By: #### B MP #### [facility] [address] [place] [address] Dr. Deonna Santos Chloride [Moles/Vol] 102 mmol/L Normal 98-107 [facility] Comment on above: Performed By: #### B MP #### [facility] [address] [place] [address] Dr. Deonna Santos CO2 [Moles/Vol] 29.5 mmol/L Normal 21.0-32.0 [facility] Comment on above: Performed By: #### B MP #### [facility] [address] [place] [address] Dr. Deonna Santos Creatinine [Mass/Vol] 1.31 mg/dL Critically high 0.70-1.30 [facility] Comment on above: Performed By: #### B MP #### [facility] [address] [address] [address] Deonna Santos EGFR-AF GAMBIAN >60 Normal >=60 [facility] Comment on above: Performed By: #### B MP #### [facility] [address] [address] [address] Deonna Santos EGFR-NON AF GAMBIAN 55 mL/min/1.73m2 Critically low >=60 [facility] Comment on above: Performed By: #### B MP #### [facility] [address] [address] [address] Deonna Santos Glucose [Mass/Vol] 97 mg/dL Normal 74-106 [facility] Comment on above: Performed By: #### B MP #### [facility] [address] [address] [address] Deonna Santos Potassium [Moles/Vol] 4.8 mmol/L Normal 3.5-5.1 [facility] Comment on above: Performed By: #### B MP #### [facility] [address] [address] [address] Deonna Santos Sodium [Moles/Vol] 137 mmol/L Normal 136-145 [facility] Comment on above: Performed By: #### B MP #### [facility] [address] [address] [address] Deonna Santos Urea nitrogen [Mass/Vol] 15.0 mg/dL Normal 7.0-18.0 [facility] Comment on above: Performed By: #### B MP #### [facility] [address] [address] [address] Deonna Santos Urea nitrogen/Creatinine [Mass ratio] 11.5 mg/mg Normal [facility] Comment on above: Performed By: #### B MP #### [facility] [address] [address] [address] Deonna Santos Endoscopy Reporton 2 Endoscopy Report MR#: [id number] [facility] Pt. Name: Kim Barron Surgery Date: 11/12/2021 Room #: M7A Date of : 1955 PROCEDURE NOTE ATTENDING: John Tsang M.D. SURGEON: John Tsang M.D. PREOPERATIVE DIAGNOSIS: Sigmoid diverticulitis with perforation, status post Alfredo procedure, status post colostomy reversal. HIV/AIDS disease POSTOPERATIVE DIAGNOSIS: Same OPERATION PERFORMED: Flexible sigmoidoscopy ANESTHESIA: Moderate sedation INDICATIONS: The patient is a 66-year-old white male with sigmoid diverticulitis with perforation, status post Alfredo procedure, status post colostomy reversal. Flexible sigmoidoscopy was offered to the patient, informed consent was obtained. Procedure Details Patient was brought to the endoscopy suit, laid on stretcher, in left decubitus position. After completion of timeout, moderate sedation was initiated. Digital rectal exam was performed, without palpable mass. Flexible endoscopy was advanced through the anus, advanced under direct visualization, reached to the descending colon without difficulty. Significant amount of thick liquid stool was encountered. The scope was withdrawn, the lumen was observed during the insertion and withdrawal. Multiple descending colon diverticula. Colorectal anastomosis is 10 cm from anal verge. Without stricture. Without abscess. Rectal mucosa looks normal. Without hemorrhoid. The scope was removed. Procedure was completed. Without complication. I was present during entire procedure. Electronically Signed by: John Tsang M.D. 11/12/2021 05:29 P John Tsang M.D. Date Dict: 11/12/2021/05:09 P/John Tsang M.D. Date Trans: 11/12/2021 05:09 P/ ANNALISA_JN:[id number] cc: Vishal Contreras M.D. [address] [facility] [address] [facility] POC SARS COV2 IDon 2 SARS-CoV-2 (COVID-19) RNA ELOISE+probe Ql (Unsp spec) Negative Normal NEGATIVE [facility] Comment on above: Result Comment: ID N OW COVID-19 assay performed on the ID NOW Instrument is a rapid molecular in vitro diagnostic test utilizing an isothermal nucleic acid amplification technology intended for the qualitative detection of nucleic acid from the SARS-CoV-2 virus in direct anterior nasal (nasal), nasopharyngeal or throat swabs from individuals who are suspected of COVID-19 by their healthcare provider within the first seven days of the onset of symptoms. Testing is limited to laboratories certified under the Clinical Laboratory Improvement Amendments of 1988 (CLIA), 42 U.S.C. ???263a,that meet the requirements to perform high, moderate, or waived complexity tests. The ID NOW COVID-19 assay is also authorized for use at the Point of Care (POC), i.e., in patient care settings operating under a CLIA Certificate of Waiver, Certificate of Compliance, or Certificate of Accreditation. Performed By: #### 3 1921 #### [facility] markedup [address] BASIC METABOLIC PANELon 03-2 Calcium [Mass/Vol] 8.0 mg/dL Low 8.6-10.[address] [facility] Comment on above: Order Comment: No: D o not add to previous draw Performed By: #### 1 0054 #### [facility] [address] [place] [address], [facility] Chloride [Moles/Vol] 103 mmol/L Normal 98-[address] [facility] Comment on above: Order Comment: No: D o not add to previous draw Performed By: #### 1 0054 #### [facility] [address] [place] [address], [facility] CO2 [Moles/Vol] 27 mmol/L Normal 21-[address] [facility] Comment on above: Order Comment: No: D o not add to previous draw Performed By: #### 1 0054 #### [facility] [address] [place] [address], [facility] Creatinine [Mass/Vol] 0.92 mg/dL Normal 0.70-1.[address] [facility] Comment on above: Order Comment: No: D o not add to previous draw Performed By: #### 1 0054 #### [facility] [address] [place] [address], [place] GFR/1.73 sq M.predicted among blacks MDRD (S/P/Bld) [Vol rate/Area] mL/min/{1.73_m2} Normal >[address] [facility] Comment on above: Order Comment: No: D o not add to previous draw Performed By: #### 1 0054 #### [facility] [address] [place] [address], [place] GFR/1.73 sq M.predicted among non-blacks MDRD (S/P/Bld) [Vol rate/Area] mL/min/{1.73_m2} Normal >[address] [facility] Comment on above: Order Comment: No: D o not add to previous draw Performed By: #### 1 0054 #### [facility] [address] [place] [address], [place] Glucose [Mass/Vol] 100 mg/dL Normal 70-[address] [facility] Comment on above: Order Comment: No: D o not add to previous draw Performed By: #### 1 0054 #### [facility] [address] [place] [address], [place] Potassium [Moles/Vol] 3.8 mmol/L Normal 3.5-5.[address] [facility] Comment on above: Order Comment: No: D o not add to previous draw Performed By: #### 1 0054 #### [facility] [address] [place] [address], [place] Sodium [Moles/Vol] 136 mmol/L Normal 136-[address] [facility] Comment on above: Order Comment: No: D o not add to previous draw Performed By: #### 1 0054 #### [facility] [address] [place] [address], [place] Urea nitrogen [Mass/Vol] 12 mg/dL Normal 7-[address] [facility] Comment on above: Order Comment: No: D o not add to previous draw Performed By: #### 1 0054 #### [facility] [address] [place] [address], [facility] CBC COMPLETE BLOOD COUNTon 0 09-28-2021 Erythrocyte distribution width (RBC) [Ratio] 13.0 % Normal 11.5-15.[address] [facility] Comment on above: Order Comment: No: D o not add to previous draw Performed By: #### 8 [id number] #### [facility] [address] [place] [address], [facility] Hematocrit (Bld) [Volume fraction] 33.9 % Low 39.0-50.[address] [facility] Comment on above: Order Comment: No: D o not add to previous draw Performed By: #### 8 [id number] #### [facility] [address] [place] [id number], [facility] Hemoglobin (Bld) [Mass/Vol] 11.7 g/dL Low 13.0-17.[address] [facility] Comment on above: Order Comment: No: D o not add to previous draw Performed By: #### 8 5499 #### [facility] [address] [place] [address], [facility] MCH (RBC) [Entitic mass] 33.0 pg Normal 27.0-33.[address] [facility] Comment on above: Order Comment: No: D o not add to previous draw Performed By: #### 8 [id number] #### [facility] [address] [place] [id number], [facility] MCHC (RBC) [Mass/Vol] 34.5 g/dL Normal 32.0-35.[address] [facility] Comment on above: Order Comment: No: D o not add to previous draw Performed By: #### 8 [id number] #### [facility] [address] [place] [address], [facility] MCV (RBC) [Entitic vol] 95.5 fL Normal 82.0-98.[address] [facility] Comment on above: Order Comment: No: D o not add to previous draw Performed By: #### 8 5499 #### [facility] [address] [facility] [place] [address], [facility] Nucleated RBC/100 WBC (Bld) [Ratio] 0 % Normal 0-[address] [facility] Comment on above: Order Comment: No: D o not add to previous draw Performed By: #### 8 [id number] #### [facility] [address] [place] [address], [facility] PLAT CNT 379 10*3/uL Normal 150-[address] [facility] Comment on above: Order Comment: No: D o not add to previous draw Performed By: #### 8 [id number] #### [facility] [address] [facility] [place] [address], [facility] RBC (Bld) [#/Vol] 3.55 10*6/uL Low 4.20-5.[address] [facility] Comment on above: Order Comment: No: D o not add to previous draw Performed By: #### 8 [id number] #### [facility] [address] [facility] [place] [address], [facility] WBC (Bld) [#/Vol] 7.80 10*3/uL Normal 4.00-10.[address] [facility] Comment on above: Order Comment: No: D o not add to previous draw Performed By: #### 8 [id number] #### [facility] [address] [facility] [place] [address], [facility] BASIC METABOLIC PANELon 03-1 Calcium [Mass/Vol] 8.0 mg/dL Low 8.6-10.[address] [facility] Comment on above: Order Comment: Unkno wn Performed By: #### 4 1000, 86623, 52284 ####[facility] [facility] [place] [address], [facility] Chloride [Moles/Vol] 102 mmol/L Normal 98-[address] [facility] Comment on above: Order Comment: Unkno wn Performed By: #### 4 1000, , 77855 ####[facility] [place] [address], [facility] CO2 [Moles/Vol] 27 mmol/L Normal 21-[address] [facility] Comment on above: Order Comment: Unkno wn Performed By: #### 4 1000, , 38641 ####[facility] [place] [address], [facility] Creatinine [Mass/Vol] 0.90 mg/dL Normal 0.70-1.[address] [facility] Comment on above: Order Comment: Unkno wn Performed By: #### 4 1000, , 44194 ####[facility] [place] [address], [facility] GFR/1.73 sq M.predicted among blacks MDRD (S/P/Bld) [Vol rate/Area] mL/min/{1.73_m2} Normal >[address] [facility] Comment on above: Order Comment: Unkno wn Performed By: #### 4 1000, , 89849 ####[facility] [place] [address], [facility] GFR/1.73 sq M.predicted among non-blacks MDRD (S/P/Bld) [Vol rate/Area] mL/min/{1.73_m2} Normal >[address] [facility] Comment on above: Order Comment: Unkno wn Performed By: #### 4 1000, , 70731 ####[facility] [place] [address], [place] Glucose [Mass/Vol] 76 mg/dL Normal 70-[address] [facility] Comment on above: Order Comment: Unkno wn Performed By: #### 4 1000, , 58913 ####[facility] [place] [address], [place] Potassium [Moles/Vol] 4.0 mmol/L Normal 3.5-5.[address] [facility] Comment on above: Order Comment: Unkno wn Performed By: #### 4 1000, 41723, 13470 ####[facility] Sodium [Moles/Vol] 135 mmol/L Low 136-[address] [facility] Comment on above: Order Comment: Unkno wn Performed By: #### 4 1000, 72207, 58992 ####[facility] Urea nitrogen [Mass/Vol] 11 mg/dL Normal 7-[address] [facility] Comment on above: Order Comment: Unkno wn Performed By: #### 4 1000, , 77773 ####[facility] CBC W/DIFFon 09-27-2021 ABS IMM GRANS 0.1 10*3/uL Normal 0.0-0.[address] [facility] Comment on above: Order Comment: Unkno wn Performed By: #### 8 5499 #### [facility] [address] [facility] [place] [address], [facility] ABS NEUTROPHILS 5.2 10*3/uL Normal 1.6-7.[address] [facility] Comment on above: Order Comment: Unkno wn Performed By: #### 8 5499 #### [facility] [address] [facility] [place] [address], [facility] Basophils (Bld) [#/Vol] 0.1 10*3/uL Normal 0.0-0.[address] [facility] Comment on above: Order Comment: Unkno wn Performed By: #### 8 5499 #### [facility] [address] [facility] [place] [address], [facility] Basophils/100 WBC (Bld) 1.3 % High 0.0-1.[address] [facility] Comment on above: Order Comment: Unkno wn Performed By: #### 8 5499 #### [facility] [address] [place] [address], [facility] Eosinophils (Bld) [#/Vol] 0.5 10*3/uL Normal 0.0-0.[address] [facility] Comment on above: Order Comment: Unkno wn Performed By: #### 8 5499 #### [facility] [address] [place] [address], [facility] Eosinophils/100 WBC (Bld) 5.9 % Normal 0.0-6.[address] [facility] Comment on above: Order Comment: Unkno wn Performed By: #### 8 5499 #### [facility] [address] [place] [address], [facility] Erythrocyte distribution width (RBC) [Ratio] 12.9 % Normal 11.5-15.[address] [facility] Comment on above: Order Comment: Unkno wn Performed By: #### 8 5499 #### [facility] [address] [place] [address], [facility] Hematocrit (Bld) [Volume fraction] 36.6 % Low 39.0-50.[address] [facility] Comment on above: Order Comment: Unkno wn Performed By: #### 8 5499 #### [facility] [address] [place] [address], [facility] Hemoglobin (Bld) [Mass/Vol] 12.3 g/dL Low 13.0-17.[address] [facility] Comment on above: Order Comment: Unkno wn Performed By: #### 8 5499 #### [facility] [address] [place] [address], [place] IMMATURE GRANS 0.7 % Normal 0.0-1.[address] [facility] Comment on above: Order Comment: Unkno wn Performed By: #### 8 5499 #### [facility] [address] [place] [address], [facility] Lymphocytes (Bld) [#/Vol] 1.9 10*3/uL Normal 1.2-4.[address] [facility] Comment on above: Order Comment: Unkno wn Performed By: #### 8 5499 #### [facility] [address] [place] [address], [facility] Lymphocytes/100 WBC (Bld) 22.1 % Normal 20.0-45.[address] [facility] Comment on above: Order Comment: Unkno wn Performed By: #### 8 5499 #### [facility] [address] [place] [address], [facility] MCH (RBC) [Entitic mass] 33.1 pg High 27.0-33.[address] [facility] Comment on above: Order Comment: Unkno wn Performed By: #### 8 [id number] #### [facility] [address] [facility] [place] [address], [facility] MCHC (RBC) [Mass/Vol] 33.6 g/dL Normal 32.0-35.[address] [facility] Comment on above: Order Comment: Unkno wn Performed By: #### 8 5499 #### [facility] [address] [facility] [place] [address], [facility] MCV (RBC) [Entitic vol] 98.4 fL High 82.0-98.[address] [facility] Comment on above: Order Comment: Unkno wn Performed By: #### 8 5499 #### [facility] [address] [facility] [place] [address], [facility] Monocytes (Bld) [#/Vol] 0.8 10*3/uL Normal 0.1-1.[address] [facility] Comment on above: Order Comment: Unkno wn Performed By: #### 8 5499 #### [facility] [address] [place] [id number], [facility] MONOS 9.6 % Normal 5.0-12.[address] [facility] Comment on above: Order Comment: Unkno wn Performed By: #### 8 5499 #### [facility] [address] [place] [address], [facility] Neutrophils/100 WBC (Bld) 60.4 % Normal 40.0-72.[address] [facility] Comment on above: Order Comment: Unkno wn Performed By: #### 8 5499 #### [facility] [address] [place] [address], [facility] Nucleated RBC/100 WBC (Bld) [Ratio] 0 % Normal 0-[address] [facility] Comment on above: Order Comment: Unkno wn Performed By: #### 8 [id number] #### [facility] [address] [facility] [place] [address], [facility] PLAT CNT 377 10*3/uL Normal 150-[address] [facility] Comment on above: Order Comment: Unkno wn Performed By: #### 8 5499 #### [facility] [address] [facility] [place] [address], [facility] RBC (Bld) [#/Vol] 3.72 10*6/uL Low 4.20-5.[address] [facility] Comment on above: Order Comment: Unkno wn Performed By: #### 8 [id number] #### [facility] [address] [facility] [place] [id number], [facility] WBC (Bld) [#/Vol] 8.58 10*3/uL Normal 4.00-10.[address] [facility] Comment on above: Order Comment: Unkno wn Performed By: #### 8 5499 #### [facility] [address] [facility] [place] [address], [facility] MAGNESIUM BLOODon 09-27-2021 Magnesium [Mass/Vol] 1.9 mg/dL Normal 1.9-2.[address] [facility] Comment on above: Order Comment: Unkno wn Performed By: #### 4 1000, 57174, 32853 ####[facility] [facility] [place] [address], [facility] PHOSPHORUS BLOODon 03-19-202 2 Phosphate [Mass/Vol] 2.5 mg/dL Normal 2.5-5.[address] [facility] Comment on above: Order Comment: Unkno wn Performed By: #### 4 1000, 28979, 39446 ####[facility] [place] [address], [facility] CT ABDOMEN AND PELVIS WO CON TRASTon 09-26-2021 CT ABDOMEN AND PELVIS WO CONTRAST [facility] Department of Radiology [address] [place] [address] ======== Patient Name: KIM BARRON : 1955 Sex: M Age: Race: White Pt. Location: [facility] Patient Status: E Ordered Date: 09/25/2021 9:40:00 PM Completed Date: 09/25/2021 10:01 PM Requesting Provider: GÓMEZ SHEEHAN Attending Provider: POLO IBANEZ Report Copy To: Signs & Symptoms: Abdominal Pain(specify) History: See Comments Comments: Other, pod 10 s/p ex lap colostomy reversal and ventral hernia repair, here with rectal bleeding, rule out leak. please use rectal contrast Exam: CT ABDOMEN AND PELVIS WO CONTRAST ======== CT ABDOMEN AND PELVIS WO CONTRAST 09/25/2021 10:04 PM CLINICAL INDICATIONS: Abdominal Pain(specify) TECHNOLOGIST COMMENTS: s/p ex lap colostomy reversal and ventral hernia repair, here with rectal bleeding, rule out leak. please use rectal contrast per order QUESTION FOR THE RADIOLOGIST: Other, pod 10 s/p ex lap colostomy reversal and ventral hernia repair, here with rectal bleeding, rule out leak. please use rectal contrast PROTOCOL: Axial CT images of the abdomen and pelvis were obtained without IV contrast. TECHNIQUE: Multidetector CT axial slices of the pelvis without IV contrast. Multiplanar reformats were performed and viewed on a separate workstation and reviewed to further define anatomy and possible pathology. All CT scans at this facility use dose modulation, iterative reconstruction, and/or weight based dosing when appropriate to reduce radiation dose to as low as reasonably achievable COMPARISON: Images from 09/25/2021 FINDINGS: CT images were obtained through the pelvis after rectal contrast administration. There is contrast filling the rectum through the area of rectosigmoid anastomosis. There appears to be a side to end type anastomosis in this region with contrast extending posteriorly towards the sacrum. This appears be contained with no leakage from the regions of suture line in the pelvis. Some fold prominence in this area may represent edema. There is a small amount of fluid density in the presacral region adjacent to the anastomosis but no organized extraluminal gas or fluid is seen. Contrast extends proximally into the left colon with no irregularity evident. A surgical drain is present in the right pelvis. IMPRESSION: There is no definite extravasation or leakage at the rectosigmoid anastomosis with some presacral fluid of uncertain significance, possibly postoperative. Electronically signed: Polo Trinidad. Transcribed by: [id number], User Resident: Electronically Signed by: POLO TRINIDAD @ 09/25/2021 10:24 PM Normal [facility] Comment on above: Order Comment: Obstr uction LACTATE BLOODon 09-26-2021 Lactate [Moles/Vol] 0.6 mmol/L Normal .5-2.[address] [facility] Comment on above: Order Comment: No: D o not add to previous draw Performed By: #### 1 0054 #### [facility] [address] [place] [address], [facility] POC SARS COV2 ANTIGEN NEGATI VEon 09-26-2021 POC SARS COV2 ANTIGEN NEG Negative Normal NEGATIVE [facility] Comment on above: Result Comment: Nega tive results should be treated as presumptive and confirmation with a molecular assay, if necessary, for patient management, may be performed. Negative results do not rule out SARS-CoV-2 infection and not should be used as the sole basis for treatment or patient management decisions, including infection control decisions. Negative results should be considered in the context of a patient's recent exposures, history, and the presence of clinical signs and symptoms consistent with COVID-19. The Clarity COVID-19 Antigen Rapid Test Cassette is a rapid chromatographic immunoassay intended for the qualitative detection of the nucleocapsid protein antigen from SARS-CoV-2 in direct nasopharyngeal swab (BASE PLY HAND) specimens from individuals who are suspected of COVID-19 by their healthcare provider within the first six days of symptom onset. Testing is limited to laboratories certified under the Clinical Laboratory Improvement Amendments of 1988 (CLIA), 42 U.S.C. ???263a, that meet the requirements to perform moderate complexity, high complexity, or waived tests. This test is authorized for use at the Point of Care (POC), i.e., in patient care settings operating under a CLIA Certificate of Waiver, Certificate of Compliance, or Certificate of Accreditation. Performed By: #### 3 4 ####[facility] [place] [address], [facility] BASIC METABOLIC PANELon 09-09 Calcium [Mass/Vol] 8.8 mg/dL Normal 8.6-10.[address] [facility] Comment on above: Performed By: #### 3 1921 #### [facility] [address] [place] [address], [place] Chloride [Moles/Vol] 98 mmol/L Normal 98-[address] [facility] Comment on above: Performed By: #### 3 1921 #### [facility] [address] [facility] [place] [address], [place] CO2 [Moles/Vol] 28 mmol/L Normal 21-[address] [facility] Comment on above: Performed By: #### 3 1921 #### [facility] [address] [facility] [place] [address], [place] Creatinine [Mass/Vol] 1.14 mg/dL Normal 0.70-1.[address] [facility] Comment on above: Performed By: #### 3 1921 #### [facility] [address] [place] [address], [place] GFR/1.73 sq M.predicted among blacks MDRD (S/P/Bld) [Vol rate/Area] mL/min/{1.73_m2} Normal >[address] [facility] Comment on above: Performed By: #### 3 1921 #### [facility] [address] [place] [address], [place] GFR/1.73 sq M.predicted among non-blacks MDRD (S/P/Bld) [Vol rate/Area] mL/min/{1.73_m2} Normal >[address] [facility] Comment on above: Performed By: #### 3 1921 #### [facility] [address] [place] [address], [place] Glucose [Mass/Vol] 88 mg/dL Normal 70-[address] [facility] Comment on above: Performed By: #### 3 192 #### [facility] [address] [place] [address], [place] Potassium [Moles/Vol] 4.6 mmol/L Normal 3.5-5.[address] [facility] Comment on above: Performed By: #### 3 1921 #### [facility] [address] [place] [address], [place] Sodium [Moles/Vol] 133 mmol/L Low 136-[address] [facility] Comment on above: Performed By: #### 3 1921 #### [facility] [address] [place] [address], [place] Urea nitrogen [Mass/Vol] 19 mg/dL Normal 7-[address] [facility] Comment on above: Performed By: #### 3 192 #### [facility] [address] [place] [address], [place] CBC W/DIFFon 09-25-2021 ABS IMM GRANS 0.1 10*3/uL Normal 0.0-0.[address] [facility] Comment on above: Performed By: #### 8 5499 #### [facility] [address] [facility] [place] [address], [facility] ABS NEUTROPHILS 5.9 10*3/uL Normal 1.6-7.[address] [facility] Comment on above: Performed By: #### 8 5499 #### [facility] [address] [facility] [place] [address], [facility] Basophils (Bld) [#/Vol] 0.1 10*3/uL Normal 0.0-0.[address] [facility] Comment on above: Performed By: #### 8 [id number] #### [facility] [address] [facility] [place] [address], [facility] Basophils/100 WBC (Bld) 1.1 % High 0.0-1.[address] [facility] Comment on above: Performed By: #### 8 [id number] #### [facility] [address] [facility] [place] [address], [facility] Eosinophils (Bld) [#/Vol] 0.6 10*3/uL High 0.0-0.[address] [facility] Comment on above: Performed By: #### 8 [id number] #### [facility] [address] [facility] [place] [address], [facility] Eosinophils/100 WBC (Bld) 6.3 % High 0.0-6.[address] [facility] Comment on above: Performed By: #### 8 5499 #### [facility] [address] [facility] [place] [address], [facility] Erythrocyte distribution width (RBC) [Ratio] 13.0 % Normal 11.5-15.[address] [facility] Comment on above: Performed By: #### 8 [id number] #### [facility] [address] [facility] [address] Hematocrit (Bld) [Volume fraction] 37.7 % Low 39.0-50.[address] [facility] Comment on above: Performed By: #### 8 [id number] #### [facility] [address] [place] [address], [facility] Hemoglobin (Bld) [Mass/Vol] 13.3 g/dL Normal 13.0-17.[address] [facility] Comment on above: Performed By: #### 8 [id number] #### [facility] [address] [place] [address], [facility] IMMATURE GRANS 0.5 % Normal 0.0-1.[address] [facility] Comment on above: Performed By: #### 8 [id number] #### [facility] [address] [facility] [address] Lymphocytes (Bld) [#/Vol] 1.8 10*3/uL Normal 1.2-4.[address] [facility] Comment on above: Performed By: #### 8 [id number] #### [facility] [address] [facility] [place] [address], [facility] Lymphocytes/100 WBC (Bld) 18.7 % Low 20.0-45.[address] [facility] Comment on above: Performed By: #### 8 [id number] #### [facility] [address] [facility] [place] [address], [facility] MCH (RBC) [Entitic mass] 33.6 pg High 27.0-33.[address] [facility] Comment on above: Performed By: #### 8 [id number] #### [facility] [address] [facility] [place] [address], [facility] MCHC (RBC) [Mass/Vol] 35.3 g/dL High 32.0-35.[address] [facility] Comment on above: Performed By: #### 8 [id number] #### [facility] [address] [place] [address], [facility] MCV (RBC) [Entitic vol] 95.2 fL Normal 82.0-98.[address] [facility] Comment on above: Performed By: #### 8 [id number] #### [facility] [address] [facility] [place] [address], [facility] Monocytes (Bld) [#/Vol] 1.0 10*3/uL Normal 0.1-1.[address] [facility] Comment on above: Performed By: #### 8 [id number] #### [facility] [address] [facility] [place] [address], [facility] MONOS 11.0 % Normal 5.0-12.[address] [facility] Comment on above: Performed By: #### 8 [id number] #### [facility] [address] [facility] [place] [address], [facility] Neutrophils/100 WBC (Bld) 62.4 % Normal 40.0-72.[address] [facility] Comment on above: Performed By: #### 8 [id number] #### [facility] [address] [facility] [place] [address], [facility] Nucleated RBC/100 WBC (Bld) [Ratio] 0 % Normal 0-[address] [facility] Comment on above: Performed By: #### 8 [id number] #### [facility] [address] [facility] [place] [address], [facility] PLAT CNT 410 10*3/uL High 150-[address] [facility] Comment on above: Performed By: #### 8 [id number] #### [facility] [address] [facility] [place] [address], [facility] RBC (Bld) [#/Vol] 3.96 10*6/uL Low 4.20-5.[address] [facility] Comment on above: Performed By: #### 8 [id number] #### [facility] [address] [place] [address], [facility] WBC (Bld) [#/Vol] 9.40 10*3/uL Normal 4.00-10.[address] [facility] Comment on above: Performed By: #### 8 [id number] #### [place] [address], [facility] CT [facility]OM[facility] ABDOMEN AND PELVIS W IV CONTRAST [facility] Department of Radiology [address] [place] [id number] ======== Patient Name: KIM BARRON : 1955 Sex: M Age: Race: White Pt. Location: [facility] Patient Status: E Ordered Date: 09/25/2021 5:40:00 PM Completed Date: 09/25/2021 07:45 PM Requesting Provider: VIK WHEELER Attending Provider: POLO IBANEZ Report Copy To: Signs & Symptoms: Abdominal Pain(specify) History: See Comments Comments: Obstruction Exam: CT ABDOMEN AND PELVIS W IV CONTRAST ======== CT ABDOMEN AND PELVIS W IV CONTRAST 09/25/2021 7:45 PM CLINICAL INDICATION: Abdominal Pain(specify) TECHNOLOGIST COMMENTS: post op re check, bloating, constipation, nausea for 10days hx: colostomy reversal 09/15/2021 QUESTION FOR THE RADIOLOGIST: Obstruction PROTOCOL: Axial CT images of the abdomen/pelvis were obtained with IV contrast. CONTRAST: Contrast: OMNIPAQUE 350 (LOCM), 100 milliliter, Intravenous TECHNIQUE: Multiple detector CT axial slices of the abdomen and pelvis were obtained with IV contrast. Multiplanar reformats were performed and viewed on a separate workstation and reviewed to further define anatomy and possible pathology. All CT scans at this facility use dose modulation, iterative reconstruction, and/or weight based dosing when appropriate to reduce radiation dose to as low as reasonably achievable COMPARISON: None. FINDINGS: Strandy densities in the lower lungs are compatible with scarring or atelectasis. There is no focal hepatic or splenic abnormality. The pancreas, adrenal glands, and biliary tree are within normal limits. The kidneys enhance symmetrically. Right renal cysts are present. There is no pelvocaliectasis or gross ureteral dilation. Urinary bladder appears within normal limits There is skin ashwini along the abdominal midline. Surgical drains are present in the right abdomen. There are postoperative changes at the rectosigmoid region. Small gas density in the surgical region may represent diverticuli. There is some free fluid in the presacral region. Abdominal wall irregularity is present with no discrete fluid collection. The appendix appears within normal limits IMPRESSION: Postoperative changes consistent with re-anastomosis of the distal colon. There is some free fluid present and small gas collection without definite findings of abscess or leak. Close follow-up is recommended. Surgical drain in place with postoperative changes along the abdominal wall. Other chronic appearing findings as described above. Electronically signed: Polo Trinidad. Transcribed by: [email or web address], User Resident: Electronically Signed by: POLO TRINIDAD @ 09/25/2021 08:41 PM Normal [facility] Comment on above: Order Comment: Obstr uction LACTATE BLOODon 09-25-2021 Lactate [Moles/Vol] 2.3 mmol/L High .5-2.[address] [facility] Comment on above: Performed By: #### 1 0054 #### [facility] [address] [place] [address], [facility] LIPASE BLOODon 09-25-2021 LIPASE 8 Units/L Low 11-[address] [facility] Comment on above: Performed By: #### 3 1921 #### [facility] [address] [place] [address], [facility] LIVER BATTERYon 09-25-2021 Albumin [Mass/Vol] 3.3 g/dL Low 3.5-5.[address] [facility] Comment on above: Performed By: #### 3 1920 #### [facility] [address] [place] [address], [facility] ALKALINE PHOSPH 79 IU/L Normal 34-[address] [facility] Comment on above: Performed By: #### 3 1920 #### [facility] [address] [place] [address], [place] ALT [Catalytic activity/Vol] 17 U/L Normal 7-[address] [facility] Comment on above: Performed By: #### 3 1920 #### [facility] [address] [place] [address], [facility] AST [Catalytic activity/Vol] 16 U/L Normal 13-[address] [facility] Comment on above: Performed By: #### 3 1920 #### [facility] [address] [place] [address], [facility] Bilirubin [Mass/Vol] 0.7 mg/dL Normal 0.3-1.[address] [facility] Comment on above: Performed By: #### 3 1920 #### [facility] [address] [place] [address], [facility] Bilirubin.direct [Mass/Vol] 0.1 mg/dL Normal 0.0-0.[address] [facility] Comment on above: Performed By: #### 3 1920 #### [facility] [address] [place] [address], [facility] Protein [Mass/Vol] 5.7 g/dL Low 6.0-8.[address] [facility] Comment on above: Performed By: #### 3 1920 #### [facility] [address] [place] [address], [facility] BASIC METABOLIC PANELon - Calcium [Mass/Vol] 8.8 mg/dL Normal 8.6-10.[address] [facility] Comment on above: Order Comment: No: D o not add to previous draw Performed By: #### 1 0070 #### [facility] [address] [place] [address], [place] Chloride [Moles/Vol] 100 mmol/L Normal 98-[address] [facility] Comment on above: Order Comment: No: D o not add to previous draw Performed By: #### 1 0070 #### [facility] [address] [place] [address], [place] CO2 [Moles/Vol] 26 mmol/L Normal 21-[address] [facility] Comment on above: Order Comment: No: D o not add to previous draw Performed By: #### 1 0070 #### [facility] [address] [place] [address], [place] Creatinine [Mass/Vol] 0.79 mg/dL Normal 0.70-1.[address] [facility] Comment on above: Order Comment: No: D o not add to previous draw Performed By: #### 1 0070 #### [facility] [address] [place] [address], [place] GFR/1.73 sq M.predicted among blacks MDRD (S/P/Bld) [Vol rate/Area] mL/min/{1.73_m2} Normal >[address] [facility] Comment on above: Order Comment: No: D o not add to previous draw Performed By: #### 1 0070 #### [facility] [address] [place] [address], [place] GFR/1.73 sq M.predicted among non-blacks MDRD (S/P/Bld) [Vol rate/Area] mL/min/{1.73_m2} Normal >[address] [facility] Comment on above: Order Comment: No: D o not add to previous draw Performed By: #### 1 0070 #### [facility] [address] [place] [address], [place] Glucose [Mass/Vol] 90 mg/dL Normal 70-[address] [facility] Comment on above: Order Comment: No: D o not add to previous draw Performed By: #### 1 0070 #### [facility] [address] [place] [address], [facility] Potassium [Moles/Vol] 3.8 mmol/L Normal 3.5-5.[address] [facility] Comment on above: Order Comment: No: D o not add to previous draw Performed By: #### 1 0070 #### [facility] [address] [place] [address], [facility] Sodium [Moles/Vol] 133 mmol/L Low 136-[address] [facility] Comment on above: Order Comment: No: D o not add to previous draw Performed By: #### 1 0070 #### [facility] [address] [place] [address], [facility] Urea nitrogen [Mass/Vol] 13 mg/dL Normal 7-[address] [facility] Comment on above: Order Comment: No: D o not add to previous draw Performed By: #### 1 0070 #### [facility] [address] [place] [address], [facility] CBC COMPLETE BLOOD COUNTon 0 - Erythrocyte distribution width (RBC) [Ratio] 12.8 % Normal 11.5-15.[address] [facility] Comment on above: Order Comment: No: D o not add to previous draw Performed By: #### 8 [id number] #### [facility] [address] [place] [address], [facility] Hematocrit (Bld) [Volume fraction] 36.5 % Low 39.0-50.[address] [facility] Comment on above: Order Comment: No: D o not add to previous draw Performed By: #### 8 5499 #### [facility] [address] [place] [address], [facility] Hemoglobin (Bld) [Mass/Vol] 12.7 g/dL Low 13.0-17.[address] [facility] Comment on above: Order Comment: No: D o not add to previous draw Performed By: #### 8 5499 #### [facility] [address] [place] [address], [facility] MCH (RBC) [Entitic mass] 33.2 pg High 27.0-33.[address] [facility] Comment on above: Order Comment: No: D o not add to previous draw Performed By: #### 8 5499 #### [facility] [address] [place] [address], [facility] MCHC (RBC) [Mass/Vol] 34.8 g/dL Normal 32.0-35.[address] [facility] Comment on above: Order Comment: No: D o not add to previous draw Performed By: #### 8 5499 #### [facility] [address] [place] [address], [facility] MCV (RBC) [Entitic vol] 95.5 fL Normal 82.0-98.[address] [facility] Comment on above: Order Comment: No: D o not add to previous draw Performed By: #### 8 [id number] #### [facility] [address] [facility] Nucleated RBC/100 WBC (Bld) [Ratio] 0 % Normal 0-[address] [facility] Comment on above: Order Comment: No: D o not add to previous draw Performed By: #### 8 [id number] #### [facility] [address] [facility] [place] [address], [facility] PLAT CNT 318 10*3/uL Normal 150-[address] [facility] Comment on above: Order Comment: No: D o not add to previous draw Performed By: #### 8 [id number] #### [facility] [address] [facility] [place] [address], [facility] RBC (Bld) [#/Vol] 3.82 10*6/uL Low 4.20-5.[address] [facility] Comment on above: Order Comment: No: D o not add to previous draw Performed By: #### 8 [id number] #### [facility] [address] [place] [address], [facility] WBC (Bld) [#/Vol] 8.67 10*3/uL Normal 4.00-10.[address] [facility] Comment on above: Order Comment: No: D o not add to previous draw Performed By: #### 8 [id number] #### [facility] [address] [place] [address], [facility] MAGNESIUM BLOODon 09-22-2021 Magnesium [Mass/Vol] 1.7 mg/dL Low 1.9-2.[address] [facility] Comment on above: Order Comment: No: D o not add to previous draw Performed By: #### 1 0070 #### [facility] [address] [place] [address], [facility] PHOSPHORUS BLOODon Phosphate [Mass/Vol] 3.6 mg/dL Normal 2.5-5.[address] [facility] Comment on above: Order Comment: No: D o not add to previous draw Performed By: #### 1 0070 #### [facility] [address] [place] [address], [facility] BASIC METABOLIC PANELon 09-09 Calcium [Mass/Vol] 8.7 mg/dL Normal 8.6-10.[address] [facility] Comment on above: Order Comment: No: D o not add to previous draw Performed By: #### 1 0054 #### [facility] [address] [place] [address], [place] Chloride [Moles/Vol] 101 mmol/L Normal 98-[address] [facility] Comment on above: Order Comment: No: D o not add to previous draw Performed By: #### 1 0054 #### [facility] [address] [place] [address], [place] CO2 [Moles/Vol] 27 mmol/L Normal 21-[address] [facility] Comment on above: Order Comment: No: D o not add to previous draw Performed By: #### 1 0054 #### [facility] [address] [place] [address], [place] Creatinine [Mass/Vol] 0.84 mg/dL Normal 0.70-1.[address] [facility] Comment on above: Order Comment: No: D o not add to previous draw Performed By: #### 1 0054 #### [facility] [address] [place] [address], [place] GFR/1.73 sq M.predicted among blacks MDRD (S/P/Bld) [Vol rate/Area] mL/min/{1.73_m2} Normal >[address] [facility] Comment on above: Order Comment: No: D o not add to previous draw Performed By: #### 1 0054 #### [facility] [address] [place] [address], [place] GFR/1.73 sq M.predicted among non-blacks MDRD (S/P/Bld) [Vol rate/Area] mL/min/{1.73_m2} Normal >[address] [facility] Comment on above: Order Comment: No: D o not add to previous draw Performed By: #### 1 0054 #### [facility] [address] [place] [address], [place] Glucose [Mass/Vol] 104 mg/dL High 70-[address] [facility] Comment on above: Order Comment: No: D o not add to previous draw Performed By: #### 1 0054 #### [facility] [address] [place] [address], [place] Potassium [Moles/Vol] 4.6 mmol/L Normal 3.5-5.[address] [facility] Comment on above: Order Comment: No: D o not add to previous draw Performed By: #### 1 0054 #### [facility] [address] [place] [address], [place] Sodium [Moles/Vol] 133 mmol/L Low 136-[address] [facility] Comment on above: Order Comment: No: D o not add to previous draw Performed By: #### 1 0054 #### [facility] [address] [place] [address], [facility] Urea nitrogen [Mass/Vol] 11 mg/dL Normal 7-[address] [facility] Comment on above: Order Comment: No: D o not add to previous draw Performed By: #### 1 0054 #### [facility] [address] [place] [address], [facility] CBC W/DIFFon 09-21-2021 ABS IMM GRANS 0.0 10*3/uL Normal 0.0-0.[address] [facility] Comment on above: Order Comment: No: D o not add to previous draw Performed By: #### 8 [id number] #### [facility] [address] [place] [address], [facility] ABS NEUTROPHILS 5.0 10*3/uL Normal 1.6-7.[address] [facility] Comment on above: Order Comment: No: D o not add to previous draw Performed By: #### 8 5499 #### [facility] [address] [place] [address], [facility] Basophils (Bld) [#/Vol] 0.1 10*3/uL Normal 0.0-0.[address] [facility] Comment on above: Order Comment: No: D o not add to previous draw Performed By: #### 8 5499 #### [facility] [address] [place] [address], [facility] Basophils/100 WBC (Bld) 0.8 % Normal 0.0-1.[address] [facility] Comment on above: Order Comment: No: D o not add to previous draw Performed By: #### 8 5499 #### [facility] [address] [place] [address], [facility] Eosinophils (Bld) [#/Vol] 0.5 10*3/uL Normal 0.0-0.[address] [facility] Comment on above: Order Comment: No: D o not add to previous draw Performed By: #### 8 5499 #### [facility] [address] [place] [address], [facility] Eosinophils/100 WBC (Bld) 5.3 % Normal 0.0-6.[address] [facility] Comment on above: Order Comment: No: D o not add to previous draw Performed By: #### 8 5499 #### [facility] [address] [place] [address], [facility] Erythrocyte distribution width (RBC) [Ratio] 12.8 % Normal 11.5-15.[address] [facility] Comment on above: Order Comment: No: D o not add to previous draw Performed By: #### 8 [id number] #### [facility] [address] [place] [address], [facility] Hematocrit (Bld) [Volume fraction] 39.3 % Normal 39.0-50.[address] [facility] Comment on above: Order Comment: No: D o not add to previous draw Performed By: #### 8 [id number] #### [facility] [address] [place] [address], [facility] Hemoglobin (Bld) [Mass/Vol] 13.3 g/dL Normal 13.0-17.[address] [facility] Comment on above: Order Comment: No: D o not add to previous draw Performed By: #### 8 [id number] #### [facility] [address] [place] [address], [facility] IMMATURE GRANS 0.3 % Normal 0.0-1.[address] [facility] Comment on above: Order Comment: No: D o not add to previous draw Performed By: #### 8 5499 #### [facility] [address] [place] [address], [facility] Lymphocytes (Bld) [#/Vol] 2.0 10*3/uL Normal 1.2-4.[address] [facility] Comment on above: Order Comment: No: D o not add to previous draw Performed By: #### 8 5499 #### [facility] [address] [place] [address], [facility] Lymphocytes/100 WBC (Bld) 23.0 % Normal 20.0-45.[address] [facility] Comment on above: Order Comment: No: D o not add to previous draw Performed By: #### 8 [id number] #### [facility] [address] [place] [address], [facility] MCH (RBC) [Entitic mass] 32.8 pg Normal 27.0-33.[address] [facility] Comment on above: Order Comment: No: D o not add to previous draw Performed By: #### 8 5499 #### [facility] [address] [place] [address], [facility] MCHC (RBC) [Mass/Vol] 33.8 g/dL Normal 32.0-35.[address] [facility] Comment on above: Order Comment: No: D o not add to previous draw Performed By: #### 8 [id number] #### [facility] [address] [facility] [place] [id number], [facility] MCV (RBC) [Entitic vol] 97.0 fL Normal 82.0-98.[address] [facility] Comment on above: Order Comment: No: D o not add to previous draw Performed By: #### 8 [id number] #### [facility] [address] [facility] [place] [id number], [facility] Monocytes (Bld) [#/Vol] 1.1 10*3/uL High 0.1-1.[address] [facility] Comment on above: Order Comment: No: D o not add to previous draw Performed By: #### 8 [id number] #### [facility] [address] [place] [address], [facility] MONOS 13.1 % High 5.0-12.[address] [facility] Comment on above: Order Comment: No: D o not add to previous draw Performed By: #### 8 5499 #### [facility] [address] [place] [address], [facility] Neutrophils/100 WBC (Bld) 57.5 % Normal 40.0-72.[address] [facility] Comment on above: Order Comment: No: D o not add to previous draw Performed By: #### 8 [id number] #### [facility] [address] [place] [id number], [facility] Nucleated RBC/100 WBC (Bld) [Ratio] 0 % Normal 0-[address] [facility] Comment on above: Order Comment: No: D o not add to previous draw Performed By: #### 8 [id number] #### [facility] [address] [place] [id number], [facility] PLAT CNT 278 10*3/uL Normal 150-[address] [facility] Comment on above: Order Comment: No: D o not add to previous draw Performed By: #### 8 [id number] #### [facility] [address] [place] [id number], [facility] RBC (Bld) [#/Vol] 4.05 10*6/uL Low 4.20-5.[address] [facility] Comment on above: Order Comment: No: D o not add to previous draw Performed By: #### 8 [id number] #### [facility] [address] [place] [address], [facility] WBC (Bld) [#/Vol] 8.64 10*3/uL Normal 4.00-10.[address] [facility] Comment on above: Order Comment: No: D o not add to previous draw Performed By: #### 8 [id number] #### [facility] [address] [place] [id number], [facility] MAGNESIUM BLOODon 09-21-2021 Magnesium [Mass/Vol] 1.7 mg/dL Low 1.9-2.[address] [facility] Comment on above: Order Comment: No: D o not add to previous draw Performed By: #### 1 0054 #### [facility] [address] [place] [address], [facility] PHOSPHORUS BLOODon Phosphate [Mass/Vol] 3.0 mg/dL Normal 2.5-5.[address] [facility] Comment on above: Order Comment: No: D o not add to previous draw Performed By: #### 1 0054 #### [facility] [address] [place] [address], [facility] BASIC METABOLIC PANELon 09-09 Calcium [Mass/Vol] 8.3 mg/dL Low 8.6-10.[address] [facility] Comment on above: Order Comment: No: D o not add to previous draw Performed By: #### 1 0070 #### [facility] [address] [place] [address], [facility] Chloride [Moles/Vol] 102 mmol/L Normal 98-[address] [facility] Comment on above: Order Comment: No: D o not add to previous draw Performed By: #### 1 0070 #### [facility] [address] [place] [address], [facility] CO2 [Moles/Vol] 23 mmol/L Normal 21-[address] [facility] Comment on above: Order Comment: No: D o not add to previous draw Performed By: #### 1 0070 #### [facility] [address] [place] [address], [facility] Creatinine [Mass/Vol] 0.63 mg/dL Low 0.70-1.[address] [facility] Comment on above: Order Comment: No: D o not add to previous draw Performed By: #### 1 0070 #### [facility] [address] [place] [address], [facility] GFR/1.73 sq M.predicted among blacks MDRD (S/P/Bld) [Vol rate/Area] mL/min/{1.73_m2} Normal >[address] [facility] Comment on above: Order Comment: No: D o not add to previous draw Performed By: #### 1 0070 #### [facility] [address] [place] [address], [place] GFR/1.73 sq M.predicted among non-blacks MDRD (S/P/Bld) [Vol rate/Area] mL/min/{1.73_m2} Normal >[address] [facility] Comment on above: Order Comment: No: D o not add to previous draw Performed By: #### 1 0070 #### [facility] [address] [place] [address], [place] Glucose [Mass/Vol] 97 mg/dL Normal 70-[address] [facility] Comment on above: Order Comment: No: D o not add to previous draw Performed By: #### 1 0070 #### [facility] [address] [place] [address], [place] Potassium [Moles/Vol] 3.7 mmol/L Normal 3.5-5.[address] [facility] Comment on above: Order Comment: No: D o not add to previous draw Performed By: #### 1 0070 #### [facility] [address] [place] [address], [place] Sodium [Moles/Vol] 132 mmol/L Low 136-[address] [facility] Comment on above: Order Comment: No: D o not add to previous draw Performed By: #### 1 0070 #### [facility] [address] [place] [address], [place] Urea nitrogen [Mass/Vol] 12 mg/dL Normal 7-[address] [facility] Comment on above: Order Comment: No: D o not add to previous draw Performed By: #### 1 0070 #### [facility] [address] [place] [address], [place] CBC COMPLETE BLOOD COUNTon 0 - Erythrocyte distribution width (RBC) [Ratio] 12.8 % Normal 11.5-15.[address] [facility] Comment on above: Order Comment: No: D o not add to previous draw Performed By: #### 3 1920 #### [facility] [address] [place] [address], [facility] Hematocrit (Bld) [Volume fraction] 39.5 % Normal 39.0-50.[address] [facility] Comment on above: Order Comment: No: D o not add to previous draw Performed By: #### 3 1920 #### [facility] [address] [place] [address], [facility] Hemoglobin (Bld) [Mass/Vol] 13.4 g/dL Normal 13.0-17.[address] [facility] Comment on above: Order Comment: No: D o not add to previous draw Performed By: #### 3 1920 #### [facility] [address] [place] [address], [facility] MCH (RBC) [Entitic mass] 32.8 pg Normal 27.0-33.[address] [facility] Comment on above: Order Comment: No: D o not add to previous draw Performed By: #### 3 1920 #### [facility] [address] [place] [address], [facility] MCHC (RBC) [Mass/Vol] 33.9 g/dL Normal 32.0-35.[address] [facility] Comment on above: Order Comment: No: D o not add to previous draw Performed By: #### 3 1920 #### [facility] [address] [place] [address], [place] MCV (RBC) [Entitic vol] 96.6 fL Normal 82.0-98.[address] [facility] Comment on above: Order Comment: No: D o not add to previous draw Performed By: #### 3 1920 #### [facility] [address] [place] [address], [place] Nucleated RBC/100 WBC (Bld) [Ratio] 0 % Normal 0-[address] [facility] Comment on above: Order Comment: No: D o not add to previous draw Performed By: #### 3 1920 #### [facility] [address] [place] [address], [facility] PLAT CNT 252 10*3/uL Normal 150-[address] [facility] Comment on above: Order Comment: No: D o not add to previous draw Performed By: #### 3 1920 #### [facility] [address] [place] [address], [facility] RBC (Bld) [#/Vol] 4.09 10*6/uL Low 4.20-5.[address] [facility] Comment on above: Order Comment: No: D o not add to previous draw Performed By: #### 3 1920 #### [facility] [address] [place] [address], [facility] WBC (Bld) [#/Vol] 8.10 10*3/uL Normal 4.00-10.[address] [facility] Comment on above: Order Comment: No: D o not add to previous draw Performed By: #### 3 1920 #### [facility] [address] [place] [address], [facility] MAGNESIUM BLOODon 09-20-2021 Magnesium [Mass/Vol] 1.9 mg/dL Normal 1.9-2.[address] [facility] Comment on above: Order Comment: No: D o not add to previous draw Performed By: #### 1 0 #### [facility] [address] [place] [address], [facility] PHOSPHORUS BLOODon Phosphate [Mass/Vol] 2.0 mg/dL Low 2.5-5.[address] [facility] Comment on above: Order Comment: No: D o not add to previous draw Performed By: #### 1 0 #### [facility] [address] [place] [address], [facility] BASIC METABOLIC PANELon 09-09 Calcium [Mass/Vol] 8.1 mg/dL Low 8.6-10.[address] [facility] Comment on above: Order Comment: No: D o not add to previous draw Performed By: #### 1 0054 #### [facility] [address] [place] [address], [place] Chloride [Moles/Vol] 103 mmol/L Normal 98-[address] [facility] Comment on above: Order Comment: No: D o not add to previous draw Performed By: #### 1 0054 #### [facility] [address] [place] [address], [place] CO2 [Moles/Vol] 22 mmol/L Normal 21-[address] [facility] Comment on above: Order Comment: No: D o not add to previous draw Performed By: #### 1 0054 #### [facility] [address] [place] [address], [place] Creatinine [Mass/Vol] 0.65 mg/dL Low 0.70-1.[address] [facility] Comment on above: Order Comment: No: D o not add to previous draw Performed By: #### 1 0054 #### [facility] [address] [place] [address], [place] GFR/1.73 sq M.predicted among blacks MDRD (S/P/Bld) [Vol rate/Area] mL/min/{1.73_m2} Normal >[address] [facility] Comment on above: Order Comment: No: D o not add to previous draw Performed By: #### 1 0054 #### [facility] [address] [place] [address], [place] GFR/1.73 sq M.predicted among non-blacks MDRD (S/P/Bld) [Vol rate/Area] mL/min/{1.73_m2} Normal >[address] [facility] Comment on above: Order Comment: No: D o not add to previous draw Performed By: #### 1 0054 #### [facility] [address] [place] [address], [facility] Glucose [Mass/Vol] 113 mg/dL High 70-[address] [facility] Comment on above: Order Comment: No: D o not add to previous draw Performed By: #### 1 0054 #### [facility] [address] [place] [id number], [facility] Potassium [Moles/Vol] 3.8 mmol/L Normal 3.5-5.[address] [facility] Comment on above: Order Comment: No: D o not add to previous draw Performed By: #### 1 0054 #### [facility] [address] [facility] [place] [address], [facility] Sodium [Moles/Vol] 132 mmol/L Low 136-[address] [facility] Comment on above: Order Comment: No: D o not add to previous draw Performed By: #### 1 0054 #### [facility] [address] [facility] [place] [address], [facility] Urea nitrogen [Mass/Vol] 15 mg/dL Normal 7-[address] [facility] Comment on above: Order Comment: No: D o not add to previous draw Performed By: #### 1 0054 #### [facility] [address] [facility] [place] [address], [facility] CBC W/DIFFon 09-19-2021 ABS IMM GRANS 0.0 10*3/uL Normal 0.0-0.[address] [facility] Comment on above: Performed By: #### 8 [id number] #### [facility] [address] [facility] [place] [address], [facility] ABS NEUTROPHILS 6.9 10*3/uL Normal 1.6-7.[address] [facility] Comment on above: Performed By: #### 8 5499 #### [facility] [address] [place] [address], [facility] Basophils (Bld) [#/Vol] 0.0 10*3/uL Normal 0.0-0.[address] [facility] Comment on above: Performed By: #### 8 [id number] #### [facility] [address] [place] [address], [facility] Basophils/100 WBC (Bld) 0.4 % Normal 0.0-1.[address] [facility] Comment on above: Performed By: #### 8 [id number] #### [facility] [address] [facility] [place] [address], [facility] Eosinophils (Bld) [#/Vol] 0.2 10*3/uL Normal 0.0-0.[address] [facility] Comment on above: Performed By: #### 8 [id number] #### [facility] [address] [facility] [place] [address], [facility] Eosinophils/100 WBC (Bld) 1.6 % Normal 0.0-6.[address] [facility] Comment on above: Performed By: #### 8 [id number] #### [facility] [address] [facility] [address] Erythrocyte distribution width (RBC) [Ratio] 13.0 % Normal 11.5-15.[address] [facility] Comment on above: Performed By: #### 8 [id number] #### [facility] [address] [facility] [place] [address], [facility] Hematocrit (Bld) [Volume fraction] 38.2 % Low 39.0-50.[address] [facility] Comment on above: Performed By: #### 8 [id number] #### [facility] [address] [place] [id number], [facility] Hemoglobin (Bld) [Mass/Vol] 13.2 g/dL Normal 13.0-17.[address] [facility] Comment on above: Performed By: #### 8 [id number] #### [facility] [address] [place] [address], [facility] IMMATURE GRANS 0.3 % Normal 0.0-1.[address] [facility] Comment on above: Performed By: #### 8 [id number] #### [facility] [address] [facility]. [address] Lymphocytes (Bld) [#/Vol] 1.4 10*3/uL Normal 1.2-4.[address] [facility] Comment on above: Performed By: #### 8 [id number] #### [facility] [address] [facility] [place] [address], [facility] Lymphocytes/100 WBC (Bld) 14.0 % Low 20.0-45.[address] [facility] Comment on above: Performed By: #### 8 [id number] #### [facility] [address] [facility]. [address] MCH (RBC) [Entitic mass] 33.2 pg High 27.0-33.[address] [facility] Comment on above: Performed By: #### 8 [id number] #### [facility] [address] [facility]. [address] MCHC (RBC) [Mass/Vol] 34.6 g/dL Normal 32.0-35.[address] [facility] Comment on above: Performed By: #### 8 [id number] #### [facility] [address] [facility]. [address] MCV (RBC) [Entitic vol] 96.0 fL Normal 82.0-98.[address] [facility] Comment on above: Performed By: #### 8 [id number] #### [facility] [address] [facility] [place] [address], [facility] Monocytes (Bld) [#/Vol] 1.2 10*3/uL High 0.1-1.[address] [facility] Comment on above: Performed By: #### 8 [id number] #### [facility] [address] [place] [address], [facility] MONOS 12.5 % High 5.0-12.[address] [facility] Comment on above: Performed By: #### 8 [id number] #### [facility] [address] [facility] [place] [address], [facility] Neutrophils/100 WBC (Bld) 71.2 % Normal 40.0-72.[address] [facility] Comment on above: Performed By: #### 8 [id number] #### [facility] [address] [facility] [place] [address], [facility] Nucleated RBC/100 WBC (Bld) [Ratio] 0 % Normal 0-[address] [facility] Comment on above: Performed By: #### 8 [id number] #### [facility] [address] [facility] [place] [address], [facility] PLAT CNT 247 10*3/uL Normal 150-[address] [facility] Comment on above: Performed By: #### 8 [id number] #### [facility] [address] [facility] [place] [address], [facility] RBC (Bld) [#/Vol] 3.98 10*6/uL Low 4.20-5.[address] [facility] Comment on above: Performed By: #### 8 [id number] #### [facility] [address] [facility] [place] [address], [facility] WBC (Bld) [#/Vol] 9.62 10*3/uL Normal 4.00-10.[address] [facility] Comment on above: Performed By: #### 8 [id number] #### [facility] [address] [facility]. [address] MAGNESIUM BLOODon 09-19-2021 Magnesium [Mass/Vol] 2.0 mg/dL Normal 1.9-2.[address] [facility] Comment on above: Order Comment: No: D o not add to previous draw Performed By: #### 1 0070 #### [facility] [address] [facility] [place] [address], [facility] BASIC METABOLIC PANELon 09-09 Calcium [Mass/Vol] 7.9 mg/dL Low 8.6-10.[address] [facility] Comment on above: Order Comment: No: D o not add to previous draw Performed By: #### 1 0054 #### [facility] [address] [place] [address], [place] Chloride [Moles/Vol] 102 mmol/L Normal 98-[address] [facility] Comment on above: Order Comment: No: D o not add to previous draw Performed By: #### 1 0054 #### [facility] [address] [place] [address], [place] CO2 [Moles/Vol] 26 mmol/L Normal 21-[address] [facility] Comment on above: Order Comment: No: D o not add to previous draw Performed By: #### 1 0054 #### [facility] [address] [place] [address], [place] Creatinine [Mass/Vol] 0.68 mg/dL Low 0.70-1.[address] [facility] Comment on above: Order Comment: No: D o not add to previous draw Performed By: #### 1 0054 #### [facility] [address] [place] [address], [place] GFR/1.73 sq M.predicted among blacks MDRD (S/P/Bld) [Vol rate/Area] mL/min/{1.73_m2} Normal >[address] [facility] Comment on above: Order Comment: No: D o not add to previous draw Performed By: #### 1 0054 #### [facility] [address] [place] [address], [place] GFR/1.73 sq M.predicted among non-blacks MDRD (S/P/Bld) [Vol rate/Area] mL/min/{1.73_m2} Normal >[address] [facility] Comment on above: Order Comment: No: D o not add to previous draw Performed By: #### 1 0054 #### [facility] [address] [place] [address], [facility] Glucose [Mass/Vol] 208 mg/dL High 70-[address] [facility] Comment on above: Order Comment: No: D o not add to previous draw Performed By: #### 1 0054 #### [facility] [address] [place] [address], [place] Potassium [Moles/Vol] 4.7 mmol/L Normal 3.5-5.[address] [facility] Comment on above: Order Comment: No: D o not add to previous draw Performed By: #### 1 0054 #### [facility] [address] [place] [address], [place] Sodium [Moles/Vol] 131 mmol/L Low 136-[address] [facility] Comment on above: Order Comment: No: D o not add to previous draw Performed By: #### 1 0054 #### [facility] [address] [place] [address], [place] Urea nitrogen [Mass/Vol] 10 mg/dL Normal 7-[address] [facility] Comment on above: Order Comment: No: D o not add to previous draw Performed By: #### 1 0054 #### [facility] [address] [place] [id number], [facility] CBC COMPLETE BLOOD COUNTon 0 3- Erythrocyte distribution width (RBC) [Ratio] 13.3 % Normal 11.5-15.[address] [facility] Comment on above: Order Comment: No: D o not add to previous draw Performed By: #### 8 [id number] #### [facility] [address] [place] [address], [place] Hematocrit (Bld) [Volume fraction] 37.6 % Low 39.0-50.[address] [facility] Comment on above: Order Comment: No: D o not add to previous draw Performed By: #### 8 [id number] #### [facility] [address] [place] [address], [place] Hemoglobin (Bld) [Mass/Vol] 12.8 g/dL Low 13.0-17.[address] [facility] Comment on above: Order Comment: No: D o not add to previous draw Performed By: #### 8 [id number] #### [facility] [address] [place] [address], [facility] MCH (RBC) [Entitic mass] 32.4 pg Normal 27.0-33.[address] [facility] Comment on above: Order Comment: No: D o not add to previous draw Performed By: #### 8 [id number] #### [facility] [address] [place] [address], [facility] MCHC (RBC) [Mass/Vol] 34.0 g/dL Normal 32.0-35.[address] [facility] Comment on above: Order Comment: No: D o not add to previous draw Performed By: #### 8 [id number] #### [facility] [address] [facility] [place] [address], [facility] MCV (RBC) [Entitic vol] 95.2 fL Normal 82.0-98.[address] [facility] Comment on above: Order Comment: No: D o not add to previous draw Performed By: #### 8 [id number] #### [facility] [address] [facility] [place] [address], [facility] Nucleated RBC/100 WBC (Bld) [Ratio] 0 % Normal 0-[address] [facility] Comment on above: Order Comment: No: D o not add to previous draw Performed By: #### 8 [id number] #### [facility] [address] [facility] [address], [facility] PLAT CNT 222 10*3/uL Normal 150-[address] [facility] Comment on above: Order Comment: No: D o not add to previous draw Performed By: #### 8 [id number] #### [facility] [address] [place] [address], [facility] RBC (Bld) [#/Vol] 3.95 10*6/uL Low 4.20-5.[address] [facility] Comment on above: Order Comment: No: D o not add to previous draw Performed By: #### 8 [id number] #### [facility] [address] [place] [address], [facility] WBC (Bld) [#/Vol] 10.46 10*3/uL Normal 4.00-10.[address] [facility] Comment on above: Order Comment: No: D o not add to previous draw Performed By: #### 8 [id number] #### [facility] [address] [place] [address], [facility] HEMOGLOBINon 09-18-2021 Hemoglobin (Bld) [Mass/Vol] 14.9 g/dL Normal 13.0-17.[address] [facility] Comment on above: Order Comment: Yes: Add to Previous draw if able Performed By: #### 3 1920 #### [facility] [address] [place] [address], [facility] Hemoglobin (Bld) [Mass/Vol] 13.9 g/dL Normal 13.0-17.[address] [facility] Comment on above: Order Comment: Yes: Add to Previous draw if able Performed By: #### 3 1920 #### [facility] [address] [place] [address], [facility] MAGNESIUM BLOODon 09-18-2021 Magnesium [Mass/Vol] 1.9 mg/dL Normal 1.9-2.[address] [facility] Comment on above: Order Comment: No: D o not add to previous draw Performed By: #### 1 0054 #### [facility] [address] [place] [address], [facility] PHOSPHORUS BLOODon Phosphate [Mass/Vol] 2.0 mg/dL Low 2.5-5.[address] [facility] Comment on above: Order Comment: No: D o not add to previous draw Performed By: #### 1 0054 #### [facility] [address] [place] [address], [facility] POC GLUCOSE LABon 09-18-2021 Glucose [Mass/Vol] 116 mg/dL High 70-[address] [facility] Comment on above: Performed By: #### 8 [id number] #### [facility] [address] [place] [address], [place] Glucose [Mass/Vol] 117 mg/dL High 70-[address] [facility] Comment on above: Performed By: #### 3 1921 #### [facility] [address] [place] [address], [facility] BASIC METABOLIC PANELon Calcium [Mass/Vol] 8.4 mg/dL Low 8.6-10.[address] [facility] Comment on above: Order Comment: No: D o not add to previous draw Performed By: #### 1 0070 #### [facility] [address] [place] [address], [place] Chloride [Moles/Vol] 103 mmol/L Normal 98-[address] [facility] Comment on above: Order Comment: No: D o not add to previous draw Performed By: #### 1 0070 #### [facility] [address] [place] [address], [place] CO2 [Moles/Vol] 26 mmol/L Normal 21-[address] [facility] Comment on above: Order Comment: No: D o not add to previous draw Performed By: #### 1 0070 #### [facility] [address] [place] [address], [place] Creatinine [Mass/Vol] 0.92 mg/dL Normal 0.70-1.[address] [facility] Comment on above: Order Comment: No: D o not add to previous draw Performed By: #### 1 0070 #### [facility] [address] [place] [address], [place] GFR/1.73 sq M.predicted among blacks MDRD (S/P/Bld) [Vol rate/Area] mL/min/{1.73_m2} Normal >[address] [facility] Comment on above: Order Comment: No: D o not add to previous draw Performed By: #### 1 0070 #### [facility] [address] [place] [address], [place] GFR/1.73 sq M.predicted among non-blacks MDRD (S/P/Bld) [Vol rate/Area] mL/min/{1.73_m2} Normal >[address] [facility] Comment on above: Order Comment: No: D o not add to previous draw Performed By: #### 1 0070 #### [facility] [address] [place] [address], [place] Glucose [Mass/Vol] 115 mg/dL High 70-[address] [facility] Comment on above: Order Comment: No: D o not add to previous draw Performed By: #### 1 0070 #### [facility] [address] [place] [address], [place] Potassium [Moles/Vol] 3.9 mmol/L Normal 3.5-5.[address] [facility] Comment on above: Order Comment: No: D o not add to previous draw Performed By: #### 1 0070 #### [facility] [address] [place] [address], [place] Sodium [Moles/Vol] 135 mmol/L Low 136-[address] [facility] Comment on above: Order Comment: No: D o not add to previous draw Performed By: #### 1 0070 #### [facility] [address] [place] [address], [place] Urea nitrogen [Mass/Vol] 12 mg/dL Normal 7-[address] [facility] Comment on above: Order Comment: No: D o not add to previous draw Performed By: #### 1 0070 #### [facility] [address] [place] [address], [place] CBC COMPLETE BLOOD COUNTon 0 - Erythrocyte distribution width (RBC) [Ratio] 13.5 % Normal 11.5-15.[address] [facility] Comment on above: Order Comment: No: D o not add to previous draw Performed By: #### 8 [id number] #### [facility] [address] [place] [address], [facility] Hematocrit (Bld) [Volume fraction] 43.4 % Normal 39.0-50.[address] [facility] Comment on above: Order Comment: No: D o not add to previous draw Performed By: #### 8 [id number] #### [facility] [address] [place] [address], [facility] Hemoglobin (Bld) [Mass/Vol] 15.0 g/dL Normal 13.0-17.[address] [facility] Comment on above: Order Comment: No: D o not add to previous draw Performed By: #### 8 [id number] #### [facility] [address] [place] [address], [facility] MCH (RBC) [Entitic mass] 33.0 pg Normal 27.0-33.[address] [facility] Comment on above: Order Comment: No: D o not add to previous draw Performed By: #### 8 [id number] #### [facility] [address] [place] [address], [facility] MCHC (RBC) [Mass/Vol] 34.6 g/dL Normal 32.0-35.[address] [facility] Comment on above: Order Comment: No: D o not add to previous draw Performed By: #### 8 [id number] #### [facility] [address] [place] [address], [place] MCV (RBC) [Entitic vol] 95.4 fL Normal 82.0-98.[address] [facility] Comment on above: Order Comment: No: D o not add to previous draw Performed By: #### 8 [id number] #### [facility] [address] [place] [address], [place] Nucleated RBC/100 WBC (Bld) [Ratio] 0 % Normal 0-[address] [facility] Comment on above: Order Comment: No: D o not add to previous draw Performed By: #### 8 [id number] #### [facility] [address] [place] [address], [facility] PLAT CNT 247 10*3/uL Normal 150-[address] [facility] Comment on above: Order Comment: No: D o not add to previous draw Performed By: #### 8 [id number] #### [facility] [address] [place] [address], [facility] RBC (Bld) [#/Vol] 4.55 10*6/uL Normal 4.20-5.[address] [facility] Comment on above: Order Comment: No: D o not add to previous draw Performed By: #### 8 [id number] #### [facility] [address] [place] [address], [facility] WBC (Bld) [#/Vol] 13.27 10*3/uL High 4.00-10.[address] [facility] Comment on above: Order Comment: No: D o not add to previous draw Performed By: #### 8 [id number] #### [facility] [address] [place] [id number], [facility] HEMOGLOBINon 09-17-2021 Hemoglobin (Bld) [Mass/Vol] 14.3 g/dL Normal 13.0-17.[address] [facility] Comment on above: Order Comment: Yes: Add to Previous draw if able Performed By: #### 3 1921 #### [facility] [address] [place] [address], [facility] Hemoglobin (Bld) [Mass/Vol] 11.1 g/dL Low 13.0-17.[address] [facility] Comment on above: Order Comment: Yes: Add to Previous draw if able Performed By: #### 8 [id number] #### [facility] [address] [place] [id number], [facility] MAGNESIUM BLOODon 09-17-2021 Magnesium [Mass/Vol] 1.7 mg/dL Low 1.9-2.[address] [facility] Comment on above: Order Comment: No: D o not add to previous draw Performed By: #### 0 0071, [id number], [id number] ####[facility] [place] [address], [facility] PHOSPHORUS BLOODon Phosphate [Mass/Vol] 1.6 mg/dL Low 2.5-5.[address] [facility] Comment on above: Order Comment: No: D o not add to previous draw Performed By: #### 0 0071, [address]77, [id number] ####[facility] [place] [address], [facility] BASIC METABOLIC PANELon Calcium [Mass/Vol] 8.2 mg/dL Low 8.6-10.[address] [facility] Comment on above: Order Comment: No: D o not add to previous draw Performed By: #### 1 0070 #### [facility] [address] [place] [address], [facility] Chloride [Moles/Vol] 102 mmol/L Normal 98-[address] [facility] Comment on above: Order Comment: No: D o not add to previous draw Performed By: #### 1 0070 #### [facility] [address] [place] [address], [place] CO2 [Moles/Vol] 24 mmol/L Normal 21-[address] [facility] Comment on above: Order Comment: No: D o not add to previous draw Performed By: #### 1 0070 #### [facility] [address] [place] [address], [place] Creatinine [Mass/Vol] 1.21 mg/dL Normal 0.70-1.[address] [facility] Comment on above: Order Comment: No: D o not add to previous draw Performed By: #### 1 0070 #### [facility] [address] [place] [address], [facility] eGFR- non- 60 ml/min/1.73sq m Abnormal >[address] [facility] Comment on above: Order Comment: No: D o not add to previous draw Performed By: #### 1 0070 #### [facility] [address] [place] [address], [place] GFR/1.73 sq M.predicted among blacks MDRD (S/P/Bld) [Vol rate/Area] mL/min/{1.73_m2} Normal >[address] [facility] Comment on above: Order Comment: No: D o not add to previous draw Performed By: #### 1 0070 #### [facility] [address] [place] [address], [place] Glucose [Mass/Vol] 233 mg/dL High 70-[address] [facility] Comment on above: Order Comment: No: D o not add to previous draw Performed By: #### 1 0070 #### [facility] [address] [place] [address], [place] Potassium [Moles/Vol] 4.4 mmol/L Normal 3.5-5.[address] [facility] Comment on above: Order Comment: No: D o not add to previous draw Performed By: #### 1 0070 #### [facility] [address] [place] [address], [place] Sodium [Moles/Vol] 135 mmol/L Low 136-[address] [facility] Comment on above: Order Comment: No: D o not add to previous draw Performed By: #### 1 0070 #### [facility] [address] [place] [address], [place] Urea nitrogen [Mass/Vol] 17 mg/dL Normal 7-[address] [facility] Comment on above: Order Comment: No: D o not add to previous draw Performed By: #### 1 0070 #### [facility] [address] CBC COMPLETE BLOOD COUNTon 0 09-16-2021 Erythrocyte distribution width (RBC) [Ratio] 13.6 % Normal 11.5-15.[address] [facility] Comment on above: Order Comment: No: D o not add to previous draw Performed By: #### 8 [id number] #### [facility] [address] [place] [address], [facility] Hematocrit (Bld) [Volume fraction] 47.5 % Normal 39.0-50.[address] [facility] Comment on above: Order Comment: No: D o not add to previous draw Performed By: #### 8 [id number] #### [facility] [address] [facility] [place] [address], [facility] Hemoglobin (Bld) [Mass/Vol] 16.2 g/dL Normal 13.0-17.[address] [facility] Comment on above: Order Comment: No: D o not add to previous draw Performed By: #### 8 [id number] #### [facility] [address] [place] [address], [facility] MCH (RBC) [Entitic mass] 32.9 pg Normal 27.0-33.[address] [facility] Comment on above: Order Comment: No: D o not add to previous draw Performed By: #### 8 [id number] #### [facility] [address] [place] [address], [facility] MCHC (RBC) [Mass/Vol] 34.1 g/dL Normal 32.0-35.[address] [facility] Comment on above: Order Comment: No: D o not add to previous draw Performed By: #### 8 [id number] #### [facility] [address] [place] [address], [facility] MCV (RBC) [Entitic vol] 96.3 fL Normal 82.0-98.[address] [facility] Comment on above: Order Comment: No: D o not add to previous draw Performed By: #### 8 [id number] #### [facility] [address] [place] [address], [facility] Nucleated RBC/100 WBC (Bld) [Ratio] 0 % Normal 0-[address] [facility] Comment on above: Order Comment: No: D o not add to previous draw Performed By: #### 8 [id number] #### [facility] [address] [place] [id number], [facility] PLAT CNT 242 10*3/uL Normal 150-[address] [facility] Comment on above: Order Comment: No: D o not add to previous draw Performed By: #### 8 [id number] #### [facility] [address] [facility] [place] [address], [facility] RBC (Bld) [#/Vol] 4.93 10*6/uL Normal 4.20-5.[address] [facility] Comment on above: Order Comment: No: D o not add to previous draw Performed By: #### 8 [id number] #### [facility] [address] [facility] [place] [address], [facility] WBC (Bld) [#/Vol] 9.69 10*3/uL Normal 4.00-10.[address] [facility] Comment on above: Order Comment: No: D o not add to previous draw Performed By: #### 8 [id number] #### [facility] [address] [facility] [place] [address], [facility] MAGNESIUM BLOODon 09-16-2021 Magnesium [Mass/Vol] 1.9 mg/dL Normal 1.9-2.[address] [facility] Comment on above: Order Comment: No: D o not add to previous draw Performed By: #### 1 0070 #### [facility] [address] [facility] [place] [address], [facility] Operative Reporton 2 Operative Report MR#: [id number] [facility] Pt. Name: Kim Barron Room #: [id number] Discharge Date: Birthdate: 1955 OPERATIVE REPORT DATE OF SURGERY: 09/15/2021 SURGEON: John Tsang M.D. Preoperative diagnosis: Colostomy present, ventral hernia Postoperative diagnosis: Same The operation was performed: Exploratory laparotomy, extensive lysis of adhesion, colostomy reversal, rigid sigmoidoscopy, open ventral hernia repair Anesthesia: General anesthesia Surgeon: John Tsang M.D. Engineering And Operations Director: Dr. Lizabeth M.D. Indication: 66 years old white male HIV disease patient is status post Alfredo procedure for sigmoid diverticulitis. He developed large midline ventral hernia. Open colostomy reversal and ventral hernia repair was offered to the patient, informed consent was obtained. The risk of the surgery include but not limited to infection, bleeding, heart attack, stroke, bowel injury, chronic pain, anastomosis leak or stricture. Patient expressed understanding, agreed to proceed. I written informed consent was also obtained. Surgery: Patient was brought to the operative room placed on the operating table in supine position, general anesthesia was initiated. Patient was converted to lithotomy position. Patient's abdomen and the perineum was prepped and draped in usual sterile fashion. Timeout was completed. Midline incision was made with #15 scalpel 20 cm long. Peritoneal cavity was entered without causing any enterotomy. Extensive lysis of adhesion was performed to separate abdominal wall from omentum and the small bowel. Further lysis of adhesion was performed to free the small bowel from the pelvic. Rectal stump was deflated by sharp dissection. Descending colon was freed from the colostomy site. A circular incision was made around the colostomy with #15 scalpel. Electrocautery dissection was performed to free the colostomy from the abdominal wall and the fascia attachment. The colostomy was taken down into the peritoneal cavity. 8 cm of the colostomy was resected. The blood supply of the descending colon was confirmed by vascular Doppler. 25 mm, 4.8 mm EEA stapler was obtained. The Anvil was placed into the end of the descending colon. 1-0 Prolene pursestring suture was placed on the end of the descending colon. The pursestring was tied. The rectal stump was freed from the presacral attachment. Mesorectum was divided with the LigaSure. The rectal stump was resected with blue load TA stapler. The resected the rectal stump was sent pathology. 25 mm EEA stapler was inserted into the anus, advanced to the rectal stump, the trocar was advanced through the rectal stump, the trocar was connected to the anvil. EEA stapler was closed and the deployed. The EEA stapler was opened and removed. Both proximal and distal anastomosis ring were intact. Rigid sigmoidoscopy was performed. Without air leak. Peritoneal cavity was irrigated with copious normal saline. 10 MOMO drain was placed into the pelvic and introduced through the right abdominal wall stab wound. The fascial edge was dissected out with the electrocautery. Midline fascia was closed by 1-0 loop PDS running sutures and 1 interrupted 1-0 Vicryl sutures. Surgery was completed without complication, I was present for entire operation, patient remained in stable condition, minimal blood loss, specimens were sent to permanent pathology evaluation, instrument count and sponge count were correct. Electronically Signed by: John Tsang M.D. 09/16/2021 01:07 P John Tsang M.D. Date Dict: 09/16/2021/12:19 P/John Tsang M.D. Date Trans: 09/16/2021 12:19 P/ [id number] cc: Vishal Contreras M.D. [address] [facility] [address] [facility] PHOSPHORUS BLOODon 2 Phosphate [Mass/Vol] 3.3 mg/dL Normal 2.5-5.[address] [facility] Comment on above: Order Comment: No: D o not add to previous draw Performed By: #### 1 0070 #### [facility] [address] [place] [address], [facility] POC GLUCOSE LABon 09-15-2021 Glucose [Mass/Vol] 94 mg/dL Normal 70-[address] [facility] Comment on above: Performed By: #### 8 [id number] #### [facility] [address] [place] [address], [facility] Endoscopy Reporton 1 Endoscopy Report MR#: [id number] [facility] Pt. Name: Kim Barron Surgery Date: 05/28/2021 Room #: [id number] Date of : 1955 PROCEDURE NOTE ATTENDING: John Tsang M.D. SURGEON: John Tsang M.D. PREOPERATIVE DIAGNOSIS: Sigmoid diverticulitis, status post Alfredo's procedure, HIV disease. POSTOPERATIVE DIAGNOSIS: Rectal stump is 20 cm from anal verge. Internal hemorrhoid. OPERATION PERFORMED: Flexible sigmoidoscopy ANESTHESIA: Moderate sedation INDICATIONS: The patient is a 65-year-old white male with sigmoid diverticulitis, status post Alfredo's procedure. Flexible sigmoidoscopy was offered to the patient, informed consent was obtained. Procedure Details Patient was brought to the endoscopy suit, laid on stretcher, in left decubitus position. After completion of timeout, moderate sedation was initiated. Digital rectal exam was performed, without palpable mass. Flexible endoscopy was advanced through the anus, advanced under direct visualization up to 20 cm, reach to the end of the rectal stump, multiple metal ashwini was visualized. Without sign of abscess, stricture, mass, ulceration. Mucosal atrophy was visualized. Internal hemorrhoid without active bleeding. Endoscopy was removed. Procedure was completed. I was present during entire procedure. Electronically Signed by: John Tsang M.D. 05/28/2021 05:42 P John Tsang M.D. Date Dict: 05/28/2021/05:17 P/John Tsang M.D. Date Trans: 05/28/2021 05:17 P/ [id number] cc: Vishal Contreras M.D. [address] [place] [address] [address] [facility] ABDOMEN SERIES W CHESTon ABDOMEN SERIES W CHEST [facility] Department of Radiology [address] [place] [id number] ======== Patient Name: KIM BARRON : 1955 Sex: M Age: Race: White Pt. Location: Patient Status: D Ordered Date: 11/26/2020 10:35:00 AM Completed Date: 11/26/2020 10:51 AM Requesting Provider: JOHN TSNAG Attending Provider: JOHN TSANG Report Copy To: CARLA BRIDGES Signs & Symptoms: K56.690 Other partial intestinal obstruction I10 History: Comments: evaluate Exam: ABDOMEN SERIES W CHEST ======== ABDOMEN SERIES W CHEST 11/26/2020 10:51 AM CLINICAL INDICATIONS: K56.690 Other partial intestinal obstruction I10 TECHNOLOGIST COMMENTS:Patient states history of bowel twisting and colostomy QUESTION FOR THE RADIOLOGIST: evaluate PROTOCOL: COMPARISON: September 25, 2020 FINDINGS: Chest: Scoliotic deformity convex to the right with lung wong well-inflated but clear. Abdomen: The abdomen demonstrates marked fecal loading. There is no features of obstruction. There are multiple phleboliths. The contrast noted on the prior study is no longer visualized. IMPRESSION: Moderate constipation but no evidence of obvious obstruction. Electronically signed: Eitan Gonsalez. Transcribed by: [email or web address], User Resident: Electronically Signed by: EITAN GONSALEZ @ 11/27/2020 08:35 AM Normal [facility] Comment on above: Order Comment: evalu ate CBC W/DIFFon 11-26-2020 ABS IMM GRANS 0.2 10*3/uL Normal 0.0-0.[address] [facility] Comment on above: Performed By: #### 3 1921 #### [facility] [address] [place] [id number], [facility] ABS NEUTROPHILS 4.4 10*3/uL Normal 1.6-7.[address] [facility] Comment on above: Performed By: #### 3 1920 #### [facility] [address] [place] [address], [facility] Basophils (Bld) [#/Vol] 0.1 10*3/uL Normal 0.0-0.[address] [facility] Comment on above: Performed By: #### 3 1920 #### [facility] [address] [place] [address], [facility] Basophils/100 WBC (Bld) 0.9 % Normal 0.0-1.[address] [facility] Comment on above: Performed By: #### 3 1920 #### [facility] [address] [place] [address], [facility] Eosinophils (Bld) [#/Vol] 0.2 10*3/uL Normal 0.0-0.[address] [facility] Comment on above: Performed By: #### 3 1920 #### [facility] [address] [facility] [place] [address], [facility] Eosinophils/100 WBC (Bld) 2.5 % Normal 0.0-6.[address] [facility] Comment on above: Performed By: #### 3 192 #### [facility] [address] [place] [id number], [facility] Erythrocyte distribution width (RBC) [Ratio] 13.6 % Normal 11.5-15.[address] [facility] Comment on above: Performed By: #### 3 192 #### [facility] [address] [place] [id number], [facility] Hematocrit (Bld) [Volume fraction] 43.0 % Normal 39.0-50.[address] [facility] Comment on above: Performed By: #### 3 192 #### [facility] [address] [place] [address], [facility] Hemoglobin (Bld) [Mass/Vol] 14.1 g/dL Normal 13.0-17.[address] [facility] Comment on above: Performed By: #### 3 1920 #### [facility] [address] [place] [address], [facility] IMMATURE GRANS 3.1 % High 0.0-1.[address] [facility] Comment on above: Performed By: #### 3 1920 #### [facility] [address] [place] [address], [facility] Lymphocytes (Bld) [#/Vol] 2.0 10*3/uL Normal 1.2-4.[address] [facility] Comment on above: Performed By: #### 3 1920 #### [facility] [address] [facility] [place] [address], [facility] Lymphocytes/100 WBC (Bld) 26.0 % Normal 20.0-45.[address] [facility] Comment on above: Performed By: #### 3 1 #### [facility] [address] [facility] [place] [address], [facility] MCH (RBC) [Entitic mass] 32.5 pg Normal 27.0-33.[address] [facility] Comment on above: Performed By: #### 3 1920 #### [facility] [address] [facility] [place] [address], [facility] MCHC (RBC) [Mass/Vol] 32.8 g/dL Normal 32.0-35.[address] [facility] Comment on above: Performed By: #### 3 1920 #### [facility] [address] [place] [address], [facility] MCV (RBC) [Entitic vol] 99.1 fL High 82.0-98.[address] [facility] Comment on above: Performed By: #### 3 1920 #### [facility] [address] [facility] [place] [address], [facility] Monocytes (Bld) [#/Vol] 0.7 10*3/uL Normal 0.1-1.[address] [facility] Comment on above: Performed By: #### 3 1920 #### [facility] [address] [place] [address], [facility] MONOS 8.9 % Normal 5.0-12.[address] [facility] Comment on above: Performed By: #### 3 1920 #### [facility] [address] [facility] [place] [address], [facility] Neutrophils/100 WBC (Bld) 58.6 % Normal 40.0-72.[address] [facility] Comment on above: Performed By: #### 3 1920 #### [facility] [address] [facility] [place] [address], [facility] Nucleated RBC/100 WBC (Bld) [Ratio] 0 % Normal 0-[address] [facility] Comment on above: Performed By: #### 3 1920 #### [facility] [address] [facility] [place] [address], [facility] PLAT CNT 237 10*3/uL Normal 150-[address] [facility] Comment on above: Performed By: #### 3 1920 #### [facility] [address] [facility] [place] [address], [facility] RBC (Bld) [#/Vol] 4.34 10*6/uL Normal 4.20-5.[address] [facility] Comment on above: Performed By: #### 3 1920 #### [facility] [address] [facility] [place] [address], [place] WBC (Bld) [#/Vol] 7.50 10*3/uL Normal 4.00-10.[address] [facility] Comment on above: Performed By: #### 3 1920 #### [facility] [address] [place] [address], [facility] CHLAMYDIA/GONORRHEA BY TMAon 11-26-2020 CHLAMYDIA BY TMA Negative Normal NEGATIVE [facility] Comment on above: Result Comment: No C hlamydia trachomatis rRNA Detected. Performed By: #### 3 1627 ####[facility] [address] GONORRHEA BY TMA Negative Normal NEGATIVE [facility] Comment on above: Result Comment: No Neisseria gonorrhoeae rRNA Detected. The Aptima Combo 2 Assay is a FDA approved target amplification nucleic acid probe test that utilizes target capture for the in vitro qualitative detection and differentiation of ribosomal RNA (rRNA) from Chlamydia trachomatis (CT) and/or Neisseria gonorrhoeae (GC) to aid the diagnosis of chlamydial and/or gonococcal urogenital disease using the Keene System. The Aptima Combo2 Assay involves: target capture; target amplification by Mediator-Mediated Amplification (TMA); and detection of the amplification products (amplicon) by the Hybridization Protection Assay (HPA). The internal process controls of the Keene System monitor the target capture, amplification, and detection steps of the assay, this is NOT intended to control for sampling adequacy. Performed By: #### 3 1627 ####[facility] [address] COMP METABOLIC PANELon 11-26 Albumin [Mass/Vol] 3.9 g/dL Normal 3.5-5.[address] [facility] Comment on above: Performed By: #### 1 0054 #### [facility] [address] [facility]. [address] ALKALINE PHOSPH 68 IU/L Normal 34-[address] [facility] Comment on above: Performed By: #### 1 0054 #### [facility] [address] [facility]. [address] ALT [Catalytic activity/Vol] 18 U/L Normal 7-[address] [facility] Comment on above: Performed By: #### 1 0054 #### [facility] [address] [place] [address], [facility] AST [Catalytic activity/Vol] 11 U/L Low 13-[address] [facility] Comment on above: Performed By: #### 1 0054 #### [facility] [address] [place] [address], [facility] Bilirubin [Mass/Vol] 0.4 mg/dL Normal 0.3-1.[address] [facility] Comment on above: Performed By: #### 1 0054 #### [facility] [address] [place] [address], [place] Calcium [Mass/Vol] 8.9 mg/dL Normal 8.6-10.[address] [facility] Comment on above: Performed By: #### 1 0054 #### [facility] [address] [place] [address], [place] Chloride [Moles/Vol] 105 mmol/L Normal 98-[address] [facility] Comment on above: Performed By: #### 1 0054 #### [facility] [address] [place] [address], [place] CO2 [Moles/Vol] 30 mmol/L Normal 21-[address] [facility] Comment on above: Performed By: #### 1 0054 #### [facility] [address] [place] [address], [place] Creatinine [Mass/Vol] 0.95 mg/dL Normal 0.70-1.[address] [facility] Comment on above: Performed By: #### 1 0054 #### [facility] [address] [place] [address], [place] GFR/1.73 sq M.predicted among blacks MDRD (S/P/Bld) [Vol rate/Area] mL/min/{1.73_m2} Normal >[address] [facility] Comment on above: Performed By: #### 1 0054 #### [facility] [address] [place] [address], [place] GFR/1.73 sq M.predicted among non-blacks MDRD (S/P/Bld) [Vol rate/Area] mL/min/{1.73_m2} Normal >[address] [facility] Comment on above: Performed By: #### 1 0054 #### [facility] [address] [place] [address], [facility] Glucose [Mass/Vol] 102 mg/dL High 70-[address] [facility] Comment on above: Performed By: #### 1 0054 #### [facility] [address] [place] [address], [facility] Potassium [Moles/Vol] 4.3 mmol/L Normal 3.5-5.[address] [facility] Comment on above: Performed By: #### 1 0054 #### [facility] [address] [place] [address], [facility] Protein [Mass/Vol] 6.3 g/dL Normal 6.0-8.[address] [facility] Comment on above: Performed By: #### 1 0054 #### [facility] [address] [place] [address], [facility] Sodium [Moles/Vol] 141 mmol/L Normal 136-[address] [facility] Comment on above: Performed By: #### 1 0054 #### [facility] [address] [place] [address], [facility] Urea nitrogen [Mass/Vol] 17 mg/dL Normal 7-[address] [facility] Comment on above: Performed By: #### 1 0054 #### [facility] [address] [place] [address], [facility] HIV VIRAL LOADon 11-26-2020 HIV QNT RNA PCR: Not detected Normal [facility] Comment on above: Result Comment: The Aptima HIV Quant assay is a real-time poultry dressing worker-mediated amplification (TMA) test which has a dynamic range of 30-10,000,000 copies/mL (1.47-7.0 log copies/mL). The Aptima HIV Quant assay is used for quantitation of human immunodeficiency virus type 1 (HIV-1) RNA in human plasma from HIV-infected individuals. The Aptima HIV-1 Quant assay is intended for use in conjunction with clinical presentation and other laboratory markers for disease prognosis and for use as an aid in monitoring the effects of antiretroviral treatment, as measured by changes in plasma HIV-1 RNA levels. This assay is not intended to be used as a donor screening test for HIV-1 or as a diagnostic test to confirm the presence of HIV-1 infection. Performed By: #### 8 4178 #### [facility] [address] [facility]. [address] LOG 10 COPIES Not detected Normal [facility] Comment on above: Performed By: #### 8 4178 #### [facility] [address] RPR (RAPID PLASMA REAGIN)on 11-26-2020 Reagin Ab RPR Ql (S) Non-Reactive Normal NON-REACTIVE [facility] Comment on above: Performed By: #### 6 4102 #### [facility] [address] [facility]. [address] URINALYSISon 11-26-2020 Appearance (U) SL CLOUDY Abnormal CLEAR [facility] Comment on above: Performed By: #### 1 0008 #### [facility] [address] [facility]. [address] Bilirubin Ql (U) Negative Normal NEGATIVE [facility] Comment on above: Performed By: #### 1 0008 #### [facility] [address] CALCIUM OXALATE CRYSTAL MANY Abnormal NONE SEEN [facility] Comment on above: Performed By: #### 1 0008 #### [facility] [address] [facility] [place] [address], [facility] Color (U) YELLOW Normal YELLOW [facility] Comment on above: Performed By: #### 1 0008 #### [facility] [address] [facility] [place] [address], [place] EPIS NONE SEEN Normal FEW,OCC,NONE SEEN [facility] Comment on above: Performed By: #### 1 0008 #### [facility] [address] [place] [address], [facility] Glucose Ql (U) Negative Normal NEGATIVE [facility] Comment on above: Performed By: #### 1 0008 #### [facility] [address] [place] [address], [facility] Hemoglobin Ql (U) SMALL Abnormal NEGATIVE [facility] Comment on above: Performed By: #### 1 0008 #### [facility] [address] [place] [address], [facility] KETONE Negative Normal NEGATIVE [facility] Comment on above: Performed By: #### 1 0008 #### [facility] [address] [place] [address], [facility] LEUK JUAN SMALL Abnormal NEGATIVE [facility] Comment on above: Performed By: #### 1 0008 #### [facility] [address] [place] [address], [facility] MUCUS THREADS FEW Abnormal NONE SEEN [facility] Comment on above: Performed By: #### 1 0008 #### [facility] [address] [place] [address], [facility] Nitrite Ql (U) Positive Abnormal NEGATIVE [facility] Comment on above: Performed By: #### 1 0008 #### [facility] [address] [place] [address], [facility] pH (U) 5.0 [pH] Normal 5.0-8.[address] [facility] Comment on above: Performed By: #### 1 0008 #### [facility] [address] [place] [address], [facility] Protein Ql (U) Negative Normal NEGATIVE [facility] Comment on above: Performed By: #### 1 0008 #### [facility] [address] RBC 0-2 Abnormal NONE SEEN [facility] Comment on above: Performed By: #### 1 0008 #### [facility] [address] SPEC GRAV 1.024 High 1.015-1.[address] [facility] Comment on above: Performed By: #### 1 0008 #### [facility] [address] WBC UA 21-50 Abnormal NONE SEEN [facility] Comment on above: Performed By: #### 1 0008 #### [address] t cell subset analysison CD3 % 83.43 % Normal 65.00-90.[address] [facility] Comment on above: Order Comment: This test was developed and its performance characteristics determinedby the [facility].It has not been cleared or approved by the .[place]. Food and DrugAdministration. Performed By: #### 3 1921 #### [address] CD3 ABSOLUTE 1627 cells/mm3 Normal 760-[address] [facility] Comment on above: Order Comment: This test was developed and its performance characteristics determinedby the [facility].It has not been cleared or approved by the U.S. Food and DrugAdministration. Performed By: #### 3 1921 #### [facility] [address] CD4 % 59.95 % Normal 40.00-70.[address] [facility] Comment on above: Order Comment: This test was developed and its performance characteristics determinedby the [facility].It has not been cleared or approved by the U.S. Food and DrugAdministration. Performed By: #### 3 1921 #### [facility] [address] CD4 ABSOLUTE 1169 cells/mm3 Normal 430-[address] [facility] Comment on above: Order Comment: This test was developed and its performance characteristics determinedby the [facility].It has not been cleared or approved by the .S. Food and DrugAdministration. Performed By: #### 3 1921 #### [facility] [address] CD4:CD8 RATIO 3.33 Normal 1.00-4.[address] [facility] Comment on above: Order Comment: This test was developed and its performance characteristics determinedby the [facility] Cyt[facility].It has not been cleared or approved by the .S. Food and DrugAdministration. Performed By: #### 3 1921 #### [facility] [address] CD8 % 18.00 % Normal 15.00-40.[address] [facility] Comment on above: Order Comment: This test was developed and its performance characteristics determinedby the [facility].It has not been cleared or approved by the .S. Food and DrugAdministration. Performed By: #### 3 1921 #### [facility] [address] CD8 ABSOLUTE 351 cells/mm3 Normal 180-[address] [facility] Comment on above: Order Comment: This test was developed and its performance characteristics determinedby the [facility].It has not been cleared or approved by the U.S. Food and DrugAdministration. Performed By: #### 3 1921 #### [facility] [address] Vital Signs Date Time Vital Sign Value Performing Clinician Blanquita avila 07-21-2023 15:08-0500 Body height 177.8 cm Arthur LEON Work Phone: [facility] 07-21-2023 15:08-0500 Body mass index (BMI) [Ratio] 18.65 kg/m2 Arthur LEON Work Phone: [facility] 07-21-2023 15:08-0500 Body weight 58.97 kg Arthur LEON Work Phone: [facility] 07-21-2023 15:08-0500 Diastolic blood pressure 77 mm[Hg] Arthur LEON Work Phone: [facility] 07-21-2023 15:08-0500 Heart rate 73 /min Arthur LEON Work Phone: [facility] 07-21-2023 15:08-0500 Systolic blood pressure 121 mm[Hg] [facility] Encounter Date Encounter Type Care Provider Facility Start: 06-02-2024 ambulatory [facility] Start: 05-19-2024 ambulatory [facility] Start: 05-02-2024 End: 05-02-2024 ambulatory [facility] Start: 04-24-2024 ambulatory [facility] Start: 04-12-2024 ambulatory [facility] Start: 03-31-2024 End: 03-31-2024 ambulatory RASHAWN CARROLL [facility] Start: 02-24-2024 End: 02-24-2024 ambulatory MIRA CORBETT [facility] Start: 02-16-2024 End: 02-16-2024 ambulatory [facility] Start: 12-17-2023 ambulatory [facility] Start: 12-08-2023 End: 12-08-2023 ambulatory BETH NICOLE [facility] Start: 11-10-2023 End: 11-10-2023 ambulatory [facility] Start: 11-04-2023 End: 11-04-2023 ambulatory REENA NORWOOD [facility] Start: 10-29-2023 ambulatory [facility] Start: 10-29-2023 End: 10-29-2023 ambulatory RASHAWN CARROLL [facility] Start: 10-06-2023 ambulatory [facility] Start: 09-08-2023 End: 09-08-2023 ambulatory BETH JEFFRIESRADHA [facility] Start: 08-24-2023 End: 08-25-2023 Emergency department patient visit RENA GONG [facility] Start: 08-23-2023 Telephone encounter Jacquelyn vasques CMA [facility] Start: 08-17-2023 End: 08-17-2023 ambulatory [facility] Start: 08-16-2023 End: 08-16-2023 ambulatory [facility] Start: 08-13-2023 End: 08-13-2023 ambulatory [facility] Start: 08-12-2023 End: 08-12-2023 ambulatory [facility] Start: 08-11-2023 End: 08-11-2023 ambulatory PANCHITO SANCHEZ [facility] Start: 08-10-2023 End: 08-11-2023 ambulatory ARTHUR CARVALHO [facility] Start: 08-05-2023 Orders Only [facility]a CRESPO [facility] Start: 08-03-2023 End: 08-03-2023 ambulatory [facility] Start: 08-03-2023 End: 08-04-2023 ambulatory BARRON ROQUE [facility] Start: 07-29-2023 End: 07-29-2023 ambulatory [facility] Start: 07-29-2023 End: 07-29-2023 ambulatory [facility] Start: 07-21-2023 End: 07-21-2023 ambulatory ARTHUR CARVALHO [facility] Start: 07-21-2023 End: 07-21-2023 Office outpatient visit 25 minutes Arthur LEON Work Phone: [facility] Comment on above: Elevated PSA (Primar y Dx) Start: 07-21-2023 Telephone encounter Arthur LEON Work Phone: [facility] Start: 06-28-2023 End: 06-28-2023 ambulatory [facility] Start: 06-24-2023 ambulatory [facility] Start: 06-21-2023 End: 06-21-2023 ambulatory RASHAWN CARROLL [facility] Start: 11-20-2022 End: 11-21-[address] JOHN TSANG Facility:[facility] Start: 09-09-2022 End: 09-10-[address] DOCTOR GONZALEZ Facility:[facility] Start: 05-27-2022 End: 05-28-2022 ambulatory DAVID DANG Facility:[facility] Start: 04-02-2022 ambulatory DAVID DANG Facility:[facility] Start: 09-29-2021 ambulatory Carla Bridges Facil ity:[facility] Start: 09-25-2021 End: 09-28-2021 ambulatory Betito Armstrong Facility:[facility] Start: 09-23-2021 ambulatory Carla Perezlim Facil ity:[facility] Start: 09-15-2021 End: 09-22-2021 Evaluation and management of inpatient VISHAL CONTRERAS Facility:[facility] Start: 10-14-2020 ambulatory Carla Coffman Anglim Facil ity:[facility] Start: 10-11-2020 ambulatory Carla Coffman Anglim Facil ity:[facility] Start: 08-27-2017 Patient encounter status Arthur LEON Work Phone: [facility] Procedures Date Procedure Procedure Detail Performing Clinician Start: 05-24-2020 Colonoscopy Arthur LEON Work Phone: Plan of Treatment Date Care Activity Detail Author Start: 10-17-2030 DTaP,Tdap and Td Vaccines (2 - Td or Tdap) DTaP,Tdap and Td Vaccines (2 - Td or Tdap) [facility] Start: 05-24-2025 Screening for malign ant neoplasm of colon Colonoscopy [facility] Start: 08-06-2024 Adult BMI Screening Adult BMI Screen ing [facility] Start: 07-21-2024 Adult BMI Screening Adult BMI Screen ing [facility] Start: 07-21-2024 Tobacco Screening Tobacco Screening [facility] Start: 11-17-2023 Tobacco Counseling Tobacco Counselin g [facility] Start: 09-21-2023 End: 09-21-2023 Patient encounter procedure 09/21/2023 12:00 PM EDT Office Visit [facility] [address] [place] [address] [place] [phone] Polo Ware MD [address] [place] [address] [facility] Start: 09-10-2023 End: 09-10-2023 ambulatory 09/10/2023 10:00 AM EST Support Visit [facility] [address] [place] [phone] Polo Ware MD [address] [place] [address] [facility] Start: 09-08-2023 End: 09-08-2023 Admission to same day surgery center 09/08/2023 10:30 AM EST - 09/08/2023 11:15 AM EST Surgery [facility] A Division of [facility] - Surgery [address] [place] [phone] Barron Roque MD [address] [place] [phone] NEEDLE BIOPSY FUSION PROSTATE TRANSPERINEAL [46242 (CPT )] [facility] Comment on above: NEEDLE BIOPSY FUSION PROSTATE TRANSPERINEAL [30470 (CPT )] Start: 09-08-2023 End: 09-08-2023 Prostate needle biopsy any approach NEEDLE BIOPSY FUSION PROSTATE TRANSPERINEAL Elevated PSA 09/08/2023 10:30 AM EST [facility] Start: 09-08-2023 Subsequent hospital visit by physician 09/08/2023 10:30 AM EST Hospital Encounter [facility] A [facility] Surgery [address] [place] [phone] Barron Roque MD [address] [place] [phone] [facility] A [facility] Start: 08-25-2023 End: 08-25-2023 Patient encounter procedure 08/25/2023 2:30 PM EST [facility] [address] [place] [phone] [facility] Start: 08-10-2023 End: 08-10-2023 Patient encounter procedure 08/10/2023 2:00 PM EST Appointment [facility] [address] [place] [address] [facility] Start: 07-21-2023 End: 07-20-2024 MR Prostate WO and W contrast IV MR prostate with and without contrast Imaging Routine Elevated PSA Expected: 07/21/2023, Expires: 07/20/2024 [facility] Work Phone: Comment on above: Expected: 07/21/2023 , Expires: 07/20/2024 Start: 2022 Fall Risk Screening Fall Risk Screen ing [facility] Start: 1969 Depression Screening Depression Scre ening [facility] Start: 1955 Medicare Annual Wellness Visit Medicare Annual Wellness Visit [facility] Payers Date Payer Category Payer Medicare [id number] 2023 Medicaid [place]ICAID [place] -[place] ONLY [id number] 2023-Present [phone] [address] [place] [address] [id number] 2022 Medicare MEDICARE MEDICAR E PART A & B [id number] 2022-Present [phone] [address] [place] [address] [id number] 2021 Unknown [id number] 1959 Medicaid [id number] 1959 Medicare [id number] 1959 Self-pay 1957 Unknown [id number] 1957 Unknown [id number] 1957 Unknown [id number] 1957 Unknown [id number] 1957 Unknown [id number] 1957 Unknown [id number] 1957 Unknown [id number] [id number] 1957 Unknown [id number] 1957 Unknown [id number] 1957 Unknown [id number] 1957 Unknown [id number] Unknown [id number] Unknown [id number] Social History Date Type Detail Facility Start: 10-10-1977 Tobacco smoking stat [facility] Occasional tobacco smoker [facility] Start: 10-10-1977 End: 04-20-2020 History of tobacco use Cigarette Smoker [facility] Start: 08-22-2020 End: 05-19-2022 Cigarettes smoked current (pack per day) - Reported 0.[address] [facility] Start: 05-19-2022 Tobacco use and exposure Smoke less tobacco non-user [facility] Start: 07-21-2023 Alcohol intake Current drinke r of alcohol (finding) [facility] Start: 08-22-2020 End: 07-21-2023 Tobacco use panel [facility] Housing Instability Unknown [facility] Start: 05-19-2022 Tobacco Comment 01/09/21 quit [facility] Start: 04-27-2019 Alcohol Comment rare [facility] Start: 1955 Sex Assigned At Male [facility] Start: 11-30-2021 Sexual orientation Homosexual (findi ng) [facility] Goals Date Patient Goal Desired Activity /State Personal health goal Comment on above: Formatting of this n ote might be different from the original. Evaluation of progress towards goal: Safe dc transition from hospital to home with [facility]. Clinical Notes 10-01-2021 to 05-02-2024 Telephone Encounter - Jacquelyn Pickard CMA - 08/23/2023 10:07 AM ESTTelephone Encounter - Althea Paz APRN-GWENDOLYN - 08/23/2023 10:07 AM CAROLYN Troy - 07/21/2023 3:15 PM EST Note Date & Type Note Facility 05-02-2024 Note [facility] Consul t Note Reason for Consultation: NSVT/AF, has loop monitor 05/02/24: Patient here for 6 mo follow up PAF, hypertension, and hyperlipidemia. Says Dr. Carroll switched him from amlodipine to losartan due to constipation. He reports BP has been higher and this hasn't helped much with constipation. C/o intermittent chest pain, which radiates to his left shoulder. HPI: Kim is here for follow-up s/p loop implant 05/2022. He has not had any symptoms of palpitations, fatigue, lightheadedness, dizziness, chest pain, FRANKS. His loop shows episodes of A-fib, raji on Aug 04 and . He was started on DOAC by Panchito KIRAN. EKG 11/10/22 SR with PAC Prior HPI: Kim Barron is a 68 y.o. year old with past medical history of paroxysmal a.fib, hypertension, HIV, hyperlipidemia, COPD, osteoarthritis. He had his colostomy reversal after sustaineing a perf from colonoscopy. He states his AF was Dx then. He gets occasional readings on his BP cuff that will tell him that his heart rhythm is irregular. He notes feeling intermittent palpitations, tends to last a few seconds and then resolves. He continues to smoke. TESTING: NM stress test 07/08/2021 1. Moderate size defect in the inferior wall, RCA distribution with no definite redistribution to suggest reversible ischemia 2. Normal exercise test, no ischemic EKG changes Echo 07/08/2021 1. Normal right and left ventricular systolic function, LVEF 55 to 60% 2. Normal diastolic function 3. No valvular dysfunction 4. Normal right-sided pressures 5. No pericardial effusion ECG 06/03/2021: Sinus bradycardia, left axis deviation, possible inferior infarct, age undetermined. When compared to the ECG of 09/12/2020 sinus rhythm has replaced atrial fibrillation. Borderline criteria for inferior infarct are no present. Blood testing 11/26/2020: Normal renal function, normal LFTs, CBC within normal. Lipid profile 11/10/2018: Cholesterol 141, triglycerides 52, HDL 64, LDL 67. PMH: Past Medical History: Diagnosis Date Anxiety state COPD (chronic obstructive pulmonary disease) (CMS/HCC) Cystitis Diverticulosis ? Dysthymia Essential hypertension Generalized anxiety disorder Human immunodeficiency virus infection (CMS/HCC) Hyperlipidemia Hypertension Intracranial aneurysm Irritable bowel syndrome ? Lymphadenopathy Paroxysmal atrial fibrillation (CMS/HCC) 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 Vitamin D deficiency PSH: Past Surgical History: Procedure Laterality Date COLOSTOMY 2019 EXPLORATORY LAPAROTOMY FLEXIBLE SIGMOIDOSCOPY MR HEAD ANGIO WO IV CONTRAST 02/11/2017 MRA HEAD WO IV CONTRAST 02/11/2017 PROSTATE SURGERY SMALL INTESTINE SURGERY 2019 SH: Social Determinants of Health Tobacco Use: High Risk (03/31/2024) Patient History Smoking Tobacco Use: Some Days Smokeless Tobacco Use: Never Passive Exposure: Not on file Alcohol Use: Not on file Financial Resource Strain: High Risk (10/29/2023) Overall Financial Resource Strain (CARDIA) Difficulty of Paying Living Expenses: Hard Food Insecurity: Food Insecurity Present (10/29/2023) Hunger Vital Sign Worried About Running Out of Food in the Last Year: Sometimes true Ran Out of Food in the Last Year: Not on file Transportation Needs: No Transportation Needs (10/29/2023) Transportation Lack of Transportation (Medical): No Lack of Transportation (Non-Medical): Not on file Physical Activity: Not on file Stress: Not on file Social Connections: Not on file Intimate Partner Violence: Not At Risk (03/07/2024) Humiliation, Afraid, Rape, and Kick questionnaire Fear of Current or Ex-Partner: No Emotionally Abused: No Physically Abused: No Sexually Abused: No Depression: Not at risk (03/31/2024) PHQ-2 PHQ-2 Score: 0 Housing Stability: Low Risk (10/29/2023) Housing Stability Vital Sign Unable to Pay for Housing in the Last Year: Not on file Number of Places Lived in the Last Year: Not on file Unstable Housing in the Last Year: No Utilities: Not At Risk (10/29/2023) [facility] Utilities Threatened with loss of utilities: No Meds: Current Outpatient Medications on File Prior to Visit Medication Sig Dispense Refill albuterol 90 mcg/actuation inhaler INHALE 2 PUFFS BY MOUTH INTO THE LUNGS NEEDED 18 g 0 atorvastatin (Lipitor) 20 mg tablet TAKE 1 TABLET(20 MG) BY MOUTH IN THE MORNING (Patient taking differently: Take 20 mg by mouth at bedtime.) 90 tablet 1 Biktarvy 50-200-25 mg tablet TAKE 1 TABLET BY MOUTH IN THE MORNING 30 tablet 2 Eliquis 5 mg tablet TAKE 1 TABLET(5 MG) BY MOUTH IN THE MORNING AND AT BEDTIME 60 tablet 11 linaCLOtide (Linzess) 290 mcg capsule Take 1 capsule (290 mcg) by mouth before breakfast. Do not crush or chew. 90 capsule 3 losartan (Cozaar) 50 mg tablet Take 1 tablet (50 mg) by mouth in the mornin (more content not included)... [facility] 04-21-2024 Note Attestation signed by Rashawn Carroll MD at 05/18/2024 11:13 AM Will increase Cozaar mg po bid and have patient continue to monitor and call with results in 3 - 4 weeks Kim scheduled a nurse visit to review blood pressure reading since switching from amlodipine 10mg to losartan 50mg to address hypertension on 03/31/24. Since changing medications, Kim reports he takes losartan in the morning and check blood pressure readings afterwards. Reported Readings: 04/07/24 - 140/87 04/08/24 - 118/69 04/10/24 - 114/68 04/13/24 - 108/71 04/17/24 - 130/84 04/19/24 - 128/82 04/20/24 - 149/91 04/21/24 - 140/90 04/21/24- 158/96 [0930 during telehealth visit. Patient observed at rest and sitting while obtaining reading] Kim denies dizziness, blurred vision, chest pain, back pain, dark urine, fatigue. Patient endorses headache. Kim states that his reported readings were obtained a couple hours after taking a morning dose of losartan. Caleb RN spoke with patient during telehealth nurse visit. Patient location at home. Pt noted to be alert and oriented to self, situation, time and place. Patient was advised that Dr. Carroll had been notified of his readings, and may receive a call soon from the provider as well. Caleb RN spoke with patient about symptoms of high blood pressure and to report to urgent care or emergency department if they begin experiencing shortness of breath, chest pain, dizziness, and worsening/persistent headache. [facility] 04-03-[address] [facility] called ptnarda up from billing. Pt reported receiving bills from external provider , still within [facility]. Our strategic planning specialist send bills to [employer] to see if they will be able to assist with covering cost, via their assistance program. Pt was informed via phone. [facility] 03-31-2024 Note Project Coach met with patient on 03/31/2024 lead generation marketing manager and patient discussed social determinants of health and program targets, below as follows: Medication: The patient reports adherence to this regimen Insurance: Medicare Pt reports having medicaid as well - [facility] requested our billing person look into it. Housing/Utilities: Housing Stable. Patient able to afford utilities/does not have utility bills. Transportation: Patient has access to transport via own vehicle. , Gas voucher provided. Food: Patient reports food security, no assistance needed. Prevention for Positives: [facility] reviewed Prevention for Positives information with patient., Patient understands U=U. Social Support: Patient reports positive social support. Eligbility: Patient meets program eligibility. lead generation marketing manager updated patient's Care Plan and SDOH Targets appropriately. lead generation marketing manager will continue to coordinate with patient and providers as needed. Additional Needs: Mcm met with pt, due to having questions about bills (external) . Pt reports having medicaid , however the card he updated into chart is stating that he has a case number , with no ID / Member number. MCM to look into this. [facility] 03-31-2024 Note Subjective HPI: Kim Barron is a 68 y.o. male presents for HIV medical care. Chief Complaint: HIV Date Dx 2009 ART regimen Biktarvy CD4/date 1172 on 10/30/2022 VL/date UVL on 10/30/2022 The patient reports greater than 90 percent adherence to ART medications and is tolerating them well with no side effects.In addition, the following was brought to medical attention: 1. Lung cancer - stage 1A - tumor shrinking 2. GI - no improvement with linzess - still with severe constipation - defering on anal manometry at this time 3. Afib - saw cardiology and had episode of afib - now on eliquis - sees them next month Review of Systems Constitutional: Negative for appetite change, fatigue, fever and unexpected weight change. No night sweats HENT: Negative for congestion, ear discharge, ear pain, nosebleeds, rhinorrhea, sinus pain, trouble swallowing and voice change. No white spots in mouth Eyes: Negative for photophobia, discharge and visual disturbance. No eye swelling Respiratory: Negative for cough and shortness of breath. Has COPD and no change in SOB, not associated with afib symptoms Cardiovascular: Negative for chest pain. Gastrointestinal: Positive for constipation. Negative for abdominal pain, diarrhea, nausea and vomiting. Genitourinary: Negative for dysuria, frequency and hematuria. No urinary incontinence No genital discharge Musculoskeletal: Negative for arthralgias, joint swelling and myalgias. No joint pain Skin: Negative for rash. Neurological: Negative for dizziness, weakness, numbness and headaches. Hematological: Negative for adenopathy. Psychiatric/Behavioral: Negative for sleep disturbance. Objective Physical Exam Constitutional: Appearance: Normal appearance. Comments: slender HENT: Head: Normocephalic and atraumatic. Right Ear: External ear normal. Left Ear: External ear normal. Nose: Nose normal. Mouth/Throat: Mouth: Mucous membranes are moist. Pharynx: Oropharynx is clear. Eyes: Conjunctiva/sclera: Conjunctivae normal. Cardiovascular: Rate and Rhythm: Normal rate and regular rhythm. Heart sounds: Normal heart sounds. No murmur heard. Pulmonary: Effort: Pulmonary effort is normal. Breath sounds: Normal breath sounds. Abdominal: Palpations: Abdomen is soft. There is no mass. Tenderness: There is no abdominal tenderness. Musculoskeletal: General: Normal range of motion. Cervical back: Normal range of motion. Skin: General: Skin is warm and dry. Neurological: General: No focal deficit present. Mental Status: He is alert and oriented to person, place, and time. Mental status is at baseline. Psychiatric: Mood and Affect: Mood normal. Ancillary Procedure on 11/01/2023 Component Date Value BSA 12/17/2023 1.69 Lab on 10/29/2023 Component Date Value PSA 10/29/2023 2.2 Sodium 10/29/2023 141 Potassium 10/29/2023 4.6 Chloride 10/29/2023 107 CO2 10/29/2023 28 BUN 10/29/2023 19 Creatinine 10/29/2023 1.09 Glucose 10/29/2023 46 (LL) Calcium 10/29/2023 9.5 Anion Gap 10/29/2023 11 eGFR 10/29/2023 74.9 BUN/Creatinine Ratio 10/29/2023 17.4 RPR 10/29/2023 Nonreactive N gonorrhoeae, TMA 10/29/2023 Negative Chlamydia, TMA 10/29/2023 Negative CD3 10/29/2023 83.05 CD3 Abs 10/29/2023 1,813 CD4 10/29/2023 55.49 CD4 Abs 10/29/2023 1,211 (H) CD8 10/29/2023 26.30 CD8 Abs 10/29/2023 574 CD4/CD8 Ratio 10/29/2023 2.11 HIV-1 Interpretation 10/29/2023 Not Detected HIV Quantitative RNA 10/29/2023 HIV Quantitative RNA Log 10/29/2023 Auto WBC 10/29/2023 7.66 RBC 10/29/2023 4.72 Hemoglobin 10/29/2023 16.0 Hematocrit 10/29/2023 46.7 MCV 10/29/2023 98.9 (H) MCH 10/29/2023 33.9 (H) MCHC 10/29/2023 34.3 RDW 10/29/2023 12.9 Neutrophils Relative 10/29/2023 56.5 Lymphocytes Relative 10/29/2023 28.5 Monocytes Relative 10/29/2023 9.8 Eosinophils Relative 10/29/2023 3.8 Basophils Relative 10/29/2023 1.0 Neutrophils Absolute 10/29/2023 4.33 Lymphocytes Absolute 10/29/2023 2.18 Monocytes Absolute 10/29/2023 0.75 Eosinophils Absolute 10/29/2023 0.29 Basophils Absolute 10/29/2023 0.08 Platelets 10/29/2023 273 nRBC % 10/29/2023 0.0 Immature Granulocytes Re* 10/29/2023 0.4 Immature Granulocytes Ab* 10/29/2023 0.03 Ancillary Procedure on 10/01/2023 Component Date Value BSA 12/17/2023 1.69 Consult on 09/08/2023 Component Date Value Color, Urine 09/08/2023 Yellow Clarity, Urine 09/08/2023 Clear pH, Urine 09/08/2023 5.0 Leukocytes, Urine 09/08/2023 Trace (A) Nitrite, Urine 09/08/2023 Negative Protein, Urine 09/08/2023 Negative Glucose, Urine 09/08/2023 Negative Bilirubin, Urine 09/08/2023 Negative Specific Olla, Urine 09/08/2023 1.031 (H) Ketones, Urine 09/08/2023 Trace (A) Blood, Urine 09/08/2023 Negative Urobilinogen, Urine 09/08/2023 2.0 (A) Urine Culture 09/08/2023 <10,000 CFU/ML No Significant Growth RBC, Urine 09/08/2023 0-2 (A) WBC, Urine 09/08/2023 3-5 (A (more content not included)... [facility] 03-07-2024 Note [facility] Gastroenterolog y Follow up Patient Visit - History & Physical CHIEF COMPLAINT Chief Complaint Patient presents with Follow-up Abdominal Pain Constipation HISTORY OF PRESENT ILLNESS: Kim Barron is a 68 y.o. male w/ pmh of Newly diagnosed CA lung stage 1 A- s/p radiation therapy, COPD, current every day smoker, HTN, Afib on Eliquis, BPH- s/p TURP, HIV on ART, w/ a pertinent GI history of IBS for > 20 years, in 05/2020, he experienced a proximal rectal perforation subsequent to a polypectomy performed during a colonoscopy. This necessitated an exploratory laparotomy with a sigmoid resection and end-colostomy. Subsequently, in 09/2021, he underwent colostomy reversal and ventral hernia repair, presenting for chronic abdominal pain and constipation He has had IBS for years, for the most part it has been IBS-D, however over the past 5 or so years he has started to have issues w/ constipation, he reports constipation really worsened after having his colostomy. He reports always feeling full . BMs occurring up to a week apart, with significant effort and straining for small stools, usually BSS 1 type. Takes Doculax PRN, usually 2-3 tabs at a time, every week or so, reports inadequate results with this. Previously used Miralax, however stopped d/t aversions. Intermittent stabbing abdominal pain localized to the mid-to-left side, worse at his previous colostomy site. Pain is not continuous. Associated symptoms include bloating, nausea, upset stomach worsen postprandially, accompanied by excessive gas and borborygmus, with no significant improvement after bowel movements. Consumes a high-fiber diet, however poor intake of water and limited physical activity d/t COPD. Other risk factors for constipation include amlodipine. Due next year for CLN unsure if he wants another No family history of GI disorders including malignancy. INTERVAL HISTORY 12/14/23: Today, ongoing symptoms despite relief of constipation. Still always feels fulls, early satiety, some ongoing nausea, upset stomach worsen postprandially, accompanied by excessive gas and borborygmus, with no significant improvement after bowel movements. Bowel cleanse help improved constipation symptoms, however did not improve his UGI symptoms. Lactulose was helping his constipation however issues w/ taste/texture. Reports better BMs now, less straining. However still has some hard and pebble like. No blood in stool. No UI wt loss. INTERVAL HISTORY 03/07/24: Started Linzess 145 mcg/day helps some, but still goes ~ 3 days w/o a BM despite Linzess. Still does not feel stools are super productive, often has straining. Still always feeling like he has to go. The consistency of his BMs are still on the harder/pebble side of things. For relief will take a Doculax 2 tablets PRN in addition to the Linzess. No blood in stool, no UI wt loss. GES was unremarkable PREVIOUS LABS/IMAGING/ENDOSCOPY: Gastric Emptying Study 02/24/24: CLINICAL INDICATIONS: Bloating, nausea, reflux, hiatal hernia. PROTOCOL: Following oral administration of radiolabeled food, labeled with technetium 99m sulfur colloid, projection images of the abdomen were obtained at 1 hour intervals out to 4 hours. When possible, both anterior and posterior projection images were obtained to allow the calculation of the geometric mean activity. RADIOPHARMACEUTICAL: Technetium 99 sulfur colloid 1 mCi COMPARISON: None. FINDINGS: T was 41 minutes. Tracer activity no observed in the distal esophagus. The percentage of retained food at the specified time in the stomach are calculated as follows: 0.5 Hour: 55 % remaining 1 Hour: 36 % remaining 2 Hour: 4 % remaining IMPRESSION: Gastric Emptying Study: Normal CT Abdomen and Pelvis without intravenous contrast 08/24/23: All CT scans at this facility use dose modulation, iterative reconstruction, and/or weight based dosing when appropriate to reduce radiation dose to as low as reasonably achievable. COMPARISON: CT abdomen pelvis 09/20/2020 FINDINGS: Unchanged scarring at the left lung base. The liver, spleen, pancreas, and adrenal glands are grossly unremarkable for noncontrast technique. Small calcified gallstones. No evidence of acute cholecystitis. No overt biliary dilatation. Benign right renal cyst which are no further follow-up. No collecting system dilatation or stones. Bladder is unremarkable. Pelvic organs are unremarkable. Postsurgical changes of a partial colectomy. Moderate amount of stool in the colon. Tortuous course of the colon. Small bowel is nondistended without evidence of obstruction. Stool and small bowel suggests a slow bowel transit. Stomach is unremarkable. No free air. No free fluid. The abdominal aorta is normal in course and caliber. Moderate atheromatous vascular calcifications no enlarged lymph nodes. Mild degenerative changes in the spine. Vertebral body heights are (more content not included)... [facility] 02-25-2024 Note No answer. Will resc hedule. Repeat CT chest in ~3-[address] [facility] 12-14-2023 Note New script received for Linzess 145mcg daily to treat K59 constipation. No PA required, no transition fill, no copay. Called pt and Lvm to discuss fill. F/U contact pt to discuss fill. Gabriel Pang CPhT [facility] 12/14/23 at 3:[address] [facility] 12-14-2023 Note Patient picked up me dication 12/16/2023. Discarding folder. Nay Colin, MacD, [facility] Outpatient Clinical Pharmacist [id number] 12/17/23 3:[address] [facility] 12-14-2023 Note [facility] Gastroenterolog y Follow up Patient Visit - History & Physical CHIEF COMPLAINT Chief Complaint Patient presents with New Patient Constipation HISTORY OF PRESENT ILLNESS: Kim Barron is a 68 y.o. male w/ pmh of Newly diagnosed CA lung stage 1 A- s/p radiation therapy, COPD, current every day smoker, HTN, Afib on Eliquis, BPH- s/p TURP, HIV on ART, w/ a pertinent GI history of IBS for > 20 years, in 05/2020, he experienced a proximal rectal perforation subsequent to a polypectomy performed during a colonoscopy. This necessitated an exploratory laparotomy with a sigmoid resection and end-colostomy. Subsequently, in 09/2021, he underwent colostomy reversal and ventral hernia repair, presenting for chronic abdominal pain and constipation He has had IBS for years, for the most part it has been IBS-D, however over the past 5 or so years he has started to have issues w/ constipation, he reports constipation really worsened after having his colostomy. He reports always feeling full . BMs occurring up to a week apart, with significant effort and straining for small stools, usually BSS 1 type. Takes Doculax PRN, usually 2-3 tabs at a time, every week or so, reports inadequate results with this. Previously used Miralax, however stopped d/t aversions. Intermittent stabbing abdominal pain localized to the mid-to-left side, worse at his previous colostomy site. Pain is not continuous. Associated symptoms include bloating, nausea, upset stomach worsen postprandially, accompanied by excessive gas and borborygmus, with no significant improvement after bowel movements. Consumes a high-fiber diet, however poor intake of water and limited physical activity d/t COPD. Other risk factors for constipation include amlodipine. Due next year for CLN unsure if he wants another No family history of GI disorders including malignancy. INTERVAL HISTORY 12/14/23: Today, ongoing symptoms despite relief of constipation. Still always feels fulls, early satiety, some ongoing nausea, upset stomach worsen postprandially, accompanied by excessive gas and borborygmus, with no significant improvement after bowel movements. Bowel cleanse help improved constipation symptoms, however did not improve his UGI symptoms. Lactulose was helping his constipation however issues w/ taste/texture. Reports better BMs now, less straining. However still has some hard and pebble like. No blood in stool. No UI wt loss. PREVIOUS LABS/IMAGING/ENDOSCOPY: CT Abdomen and Pelvis without intravenous contrast 08/24/23: All CT scans at this facility use dose modulation, iterative reconstruction, and/or weight based dosing when appropriate to reduce radiation dose to as low as reasonably achievable. COMPARISON: CT abdomen pelvis 09/20/2020 FINDINGS: Unchanged scarring at the left lung base. The liver, spleen, pancreas, and adrenal glands are grossly unremarkable for noncontrast technique. Small calcified gallstones. No evidence of acute cholecystitis. No overt biliary dilatation. Benign right renal cyst which are no further follow-up. No collecting system dilatation or stones. Bladder is unremarkable. Pelvic organs are unremarkable. Postsurgical changes of a partial colectomy. Moderate amount of stool in the colon. Tortuous course of the colon. Small bowel is nondistended without evidence of obstruction. Stool and small bowel suggests a slow bowel transit. Stomach is unremarkable. No free air. No free fluid. The abdominal aorta is normal in course and caliber. Moderate atheromatous vascular calcifications no enlarged lymph nodes. Mild degenerative changes in the spine. Vertebral body heights are maintained. Rectus diastases. IMPRESSION: * No acute process in the abdomen or pelvis. Specifically no renal collecting system dilatation or stones. * Moderate colonic stool burden. CLN 05/2020: - Diverticulosis in the sigmoid colon. - One small polyp in the distal sigmoid colon, removed with a cold snare. Resected and retrieved. Pathology: Hyperplastic - Internal hemorrhoids. LABORATORY DATA: CBC: Lab Results Component Value Date WBC 7.66 10/29/2023 RBC 4.72 10/29/2023 HGB 16.0 10/29/2023 HCT 46.7 10/29/2023 MCV 98.9 (H) 10/29/2023 RDW 12.9 10/29/2023 PLT 273 10/29/2023 PT/INR Lab Results Component Value Date PT 13.5 10/02/2020 INR 1.03 10/02/2020 BMP: Lab Results Component Value Date NA 141 10/29/2023 K 4.6 10/29/2023 CL 107 10/29/2023 BUN 19 10/29/2023 CREATININE 1.09 10/29/2023 EGFR 74.9 10/29/2023 GLU 98 10/30/2021 LFTs: Lab Results Component Value Date BILITOT 0.5 10/30/2021 BILIDIR 0.1 09/25/2021 ALKPHOS 93 10/30/2021 AST 17 10/30/2021 ALT 18 10/30/2021 ALBUMIN 4.0 10/30/2021 PROT 6.4 10/30/2021 Celiac Serology: No results found for: TTGA , IGA B12/Folate/Iron studies: Lab Results Component Value Date [id number] 10/17/2020 FOLATE 10.98 (more content not included)... [facility] 12-08-2023 Note Chief complaint: Faustina vated PSA History of Present Illness: Location: Prostate Duration: For the past few years Context/Modifying Factors: Recently completed therapy for lung cancer Associated signs and symptoms: Denies gross hematuria Review of Systems: A 10 point review of systems was performed and is otherwise negative unless included in the chief complaint, history of present illness, histories, or the assessment and plan. Social History: Social History Socioeconomic History Marital status: Single Spouse name: Not on file Number of children: Not on file Years of education: Not on file Highest education level: Not on file Occupational History Not on file Tobacco Use Smoking status: Every Day Packs/day: 0.50 Years: 40.00 Additional pack years: 0.00 Total pack years: 20.00 Types: Cigarettes Smokeless tobacco: Never Substance and Sexual Activity Alcohol use: Yes Alcohol/week: 2.0 standard drinks of alcohol Types: 2 Glasses of wine per week Drug use: Yes Types: Marijuana Comment: daily Sexual activity: Not on file Other Topics Concern Not on file Social History Narrative Not on file Social Determinants of Health Financial Resource Strain: Not on file Food Insecurity: Not on file Transportation Needs: Not on file Physical Activity: Not on file Stress: Not on file Social Connections: Not on file Intimate Partner Violence: Not At Risk (04/30/2023) [place] Safety & Environment Fear of Current or Ex-Partner: No Emotionally Abused: Not on file Physically Abused: Not on file Sexually Abused: Not on file Physically or Sexually Abused: Not on file Housing Stability: Not on file Past Medical/Surgical History: Medical History Past Medical History: Diagnosis Date Anxiety state COPD (chronic obstructive pulmonary disease) (CMS/HCC) Cystitis Dysthymia Essential hypertension Generalized anxiety disorder Human immunodeficiency virus infection (CMS/HCC) Hyperlipidemia Hypertension Intracranial aneurysm Lymphadenopathy Paroxysmal atrial fibrillation (CMS/HCC) 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 Vitamin D deficiency Family History: Family History Family History Problem Relation Name Age of Onset Heart attack Mother Uterine cancer Mother Hypertension Mother Lung cancer Father possibly Diabetes Sister Other (malignant neoplastic disease) Paternal Grandmother Physical Exam: Constitutional: In no acute distress Psychiatric: Normal affect, alert and oriented HEENT: No scleral icterus Pulmonary: Is not laboring to breathe Cardiovascular: No obvious cyanosis of the extremities Extremities: No significant lower extremity edema Neurologic: Grossly nonfocal Skin: No jaundice Diagnoses: Elevated PSA Assessment and Plan: The patient is a 68-year-old male with a history of an elevated PSA. His PSA from June was 6.2. He had an MRI of the prostate in July 2023 h that showed a PI-RADS 2 changes not concerning for prostate cancer. He has a new diagnosis of lung cancer and a PET scan prior to the prostate MRI showed increased activity in the right aspect of the prostate gland. His PSA from October 28 was 2.2. He does note some urinary urgency and frequency. He did have a TURP in the past. A prescription for tamsulosin was provided. Will see him back in 6 months with another PSA. Beth Nicole MD [facility] 11-15-2023 Note [facility] Department of Radiation Oncology [address] [place] [id number] RADIATION ONCOLOGY FOLLOW UP NOTE Date of Service: 11/15/23 Patient Name: Kim Barron Patient : 1955 Diagnosis: 68 y.o. man with a clinical diagnosis of Stage IA lung cancer, NOS, completed a course of stereotactic body radiotherapy (SBRT) on 08/17/2023. Chief Complaint: I feel pretty good. Interval Hx: Patient presents in an initial post-radiation visit. We last saw Mr. Barron 3 months ago at the conclusion of his radiotherapy course. Patient had a CT chest last week. Symptom mesa, he feels relatively well. He has stable exertional dyspnea. Per patient, exertion is sometimes as little as taking a shower or carrying groceries. He continues to smoke half a pack a day. He is able to walk on flat ground and slowly for longer distances. He is independent with ADLs. He does not have a salvage engineer, but does use his COPD medications as prescribed by his family doctor. He would be interested in establishing a doctor-patient relationship with a salvage engineer colleague, as well. He denies experiencing rib cage pain, chest pain, worsening shortness of breath, cough, poor appetite, weight loss. He saw urology colleagues, and is pleased that his PSA decreased to normal levels; patient is s/p TURP. Original Consultation History of Present Illness: Patient presents in initial Radiation Oncology consultation as per the request of Dr. Tariq. We have been asked to evaluate the patient for radiotherapy options. Mr. Barron is a 68 y.o. man with HIV, COPD and atrial fibrillation; he is an every day smoker. He had a LDCT screening in April 2023 that noted a 9 mm RUL posterio solid nodule, subsequently FDG avid. Patient is medically inoperable due to COPD. He has exertional dyspnea such as when climbing stairs, carrying groceries, etc. He has a chronic cough productive of mucoid sputum. He lost 20 lbs, states it's due to a bowel surgery. He is also s/p TURP and has an elevated PSA; he is seeing Dr. Nicole for this. I reviewed the patient's oncologic, medical, surgical, social, and family history, as well as allergies/medications as per the medical record. Radiation Treatments Historical Plans [facility] Most recent treatment: Dose planned: 1,250 cGy (fraction 4 on 08/17/2023) Total: Dose planned: 5,000 cGy (4 fractions) Elapsed Days: 5 Reference Points [facility] Most recent treatment: Dose given: 1,250 cGy (on 08/17/2023) Total: Dose given: 5,000 cGy Elapsed Days: 5 SocHx: Smokes marijuana every day; smoking since age 18, 0.5 ppd, every day smoker; lives alone. FamHx: Father, , ? Lung cancer; mother, , from cardiac issues, uterine cancer; paternal aunt and grandma both had cancer. Review of Systems: I reviewed the Review of Systems with the patient. Clinically pertinent ones noted in the HPI. All others have been reviewed and are negative. RoS + exertional dyspnea, cough productive of mucoid sputum, weight loss, daytime frequency, nocturia x3, incomplete bladder emptying, intermittency. Patient is s/p TURP. Physical Exam: Wt Readings from Last 5 Encounters: 11/04/23 59.9 kg (132 lb) 11/03/23 60.5 kg (133 lb 6.4 oz) 10/29/23 58.2 kg (128 lb 6.4 oz) 09/08/23 57.3 kg (126 lb 6.4 oz) 08/16/23 56 kg (123 lb 6.4 oz) GENERAL: ECOG 1-2, well-appearing, in no apparent distress, alert and fully oriented, answers questions appropriately, unaccompanied. HEENT: Normocephalic, atraumatic, PER, EOMI, mucous membranes moist, no suspicious asymmetry or abnormal mass lesions. NECK: No cervical or supraclavicular lymphadenopathy. LUNGS: Clear to auscultation bilaterally. HEART: Normal rate, regular rhythm. Normal S1/S2, no murmurs/rubs/gallops appreciated. ABD: No visceromegaly or masses. EXTREMITIES: Normal range of motion, no cyanosis/clubbing/edema. LYMPH: No appreciable adenopathy. NEURO: AOx4, computer hardware technician grossly normal, gait normal, muscle power in extremities normal. PSYCH: Appropriate affect for the clinical situation. Insight and judgment not impaired. LABS: PSA Trend in ng/mL 2.2 on 10/29/2023 6.2 ng/mL in Jun 2023 RADS: 11/10/2023 CT chest wo IV contrast personally reviewed; images also reviewed with the patient. *Decreased size of right upper lobe nodule. No new disease or metastases demonstrated. *Advanced pulmonary emphysema. *Small gallstones. Jun 2023 PET scan: *Hypermetabolic 0.9 cm nodule in the posterior aspect of the right upper lobe highly concerning for malignancy. No FDG avid metastatic disease. *Focal area of significantly increased FDG activity in the right aspect of the prostate gland, concerning for prostate malignancy until proven otherwise. PATH: No recent studies. Assessment: N.E.D. Plan: I reviewed the most recent CT chest images with the patient and compared to the katia (more content not included)... [facility] 11-15-2023 Note [employer]PERVISING COOK: RUL 10/13 c ompleted 08/2023. Vitals WNL. Pt cont with franks, denies any hemoptysis. Pt. Denies any pain. Pt had CT chest 11/20/2023, here to review. [facility] 11-04-2023 Note [facility] Consul t Note Reason for Consultation: NSVT/AF, has loop monitor 11/04/2023 He has been feeling well since last seen. Denies any cardiac changes including no CP, dyspnea, orthopnea, PND, LE edema, dizziness/LH, palpitations. He has been found to have early stages of lung CA. He has undergone radiation treatment. 05/25/23 Loop review: 1 episode of SVT, 8 seconds, 04/24/23; appears like ATACH, otherwise no events since 07/2022 . No afib seen. He has been feeling well without complaints of CP, SOB, FRANKS , LE edema 11/2022 HPI: Kim is here for follow-up s/p loop implant 05/2022. He has not had any symptoms of palpitations, fatigue, lightheadedness, dizziness, chest pain, FRANKS. His loop shows episodes of A-fib, raji on Aug 04 and . He was started on DOAC by Panchito KIRAN. EKG 11/10/22 SR with PAC Prior HPI: Kim Barron is a 68 y.o. year old with past medical history of paroxysmal a.fib, hypertension, HIV, hyperlipidemia, COPD, osteoarthritis. He had his colostomy reversal after sustaineing a perf from colonoscopy. He states his AF was Dx then. He gets occasional readings on his BP cuff that will tell him that his heart rhythm is irregular. He notes feeling intermittent palpitations, tends to last a few seconds and then resolves. He continues to smoke. PMH: Past Medical History: Diagnosis Date Anxiety state COPD (chronic obstructive pulmonary disease) (CMS/HCC) Cystitis Diverticulosis ? Dysthymia Essential hypertension Generalized anxiety disorder Human immunodeficiency virus infection (CMS/HCC) Hyperlipidemia Hypertension Intracranial aneurysm Irritable bowel syndrome ? Lymphadenopathy Paroxysmal atrial fibrillation (CMS/HCC) 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 Vitamin D deficiency PSH: Past Surgical History: Procedure Laterality Date COLOSTOMY 2019 EXPLORATORY LAPAROTOMY FLEXIBLE SIGMOIDOSCOPY MR HEAD ANGIO WO IV CONTRAST 02/11/2017 MRA HEAD WO IV CONTRAST 02/11/2017 PROSTATE SURGERY SMALL INTESTINE SURGERY 2019 SH: Social Determinants of Health Tobacco Use: High Risk (11/03/2023) Patient History Smoking Tobacco Use: Some Days Smokeless Tobacco Use: Never Passive Exposure: Not on file Alcohol Use: Not on file Financial Resource Strain: High Risk (10/29/2023) Overall Financial Resource Strain (CARDIA) Difficulty of Paying Living Expenses: Hard Food Insecurity: Food Insecurity Present (10/29/2023) Hunger Vital Sign Worried About Running Out of Food in the Last Year: Sometimes true Ran Out of Food in the Last Year: Not on file Transportation Needs: No Transportation Needs (10/29/2023) Transportation Lack of Transportation (Medical): No Lack of Transportation (Non-Medical): Not on file Physical Activity: Not on file Stress: Not on file Social Connections: Not on file Intimate Partner Violence: Not At Risk (11/03/2023) Humiliation, Afraid, Rape, and Kick questionnaire Fear of Current or Ex-Partner: No Emotionally Abused: No Physically Abused: No Sexually Abused: No Depression: Not at risk (11/03/2023) PHQ-2 PHQ-2 Score: 0 Recent Concern: Depression - At risk (09/08/2023) PHQ-2 PHQ-2 Score: 3 Housing Stability: Low Risk (10/29/2023) Housing Stability Vital Sign Unable to Pay for Housing in the Last Year: Not on file Number of Places Lived in the Last Year: Not on file Unstable Housing in the Last Year: No Utilities: Not At Risk (10/29/2023) [facility] Utilities Threatened with loss of utilities: No Meds: Current Outpatient Medications on File Prior to Visit Medication Sig Dispense Refill albuterol 90 mcg/actuation inhaler INHALE 2 PUFFS BY MOUTH INTO THE LUNGS NEEDED 18 g 0 amLODIPine (Norvasc) 10 mg tablet Take 1 tablet (10 mg) by mouth in the morning. 90 tablet 3 apixaban (Eliquis) 5 mg tablet Take 1 tablet (5 mg) by mouth in the morning and at bedtime. 60 tablet 11 atorvastatin (Lipitor) 20 mg tablet TAKE 1 TABLET(20 MG) BY MOUTH IN THE MORNING 90 tablet 1 Biktarvy 50-200-25 mg tablet Take 1 tablet by mouth in the morning. 30 tablet 0 lactulose 10 gram/15 mL solution Take 15 mL (10 g) by mouth if needed in the morning, at noon, and at bedtime (Constipation). 450 mL 0 mometasone-formoterol (Dulera) 100-5 mcg/actuation inhaler Inhale 2 puffs in the morning and at bedtime. Rinse mouth with water after use to reduce aftertaste and incidence of candidiasis. Do not swallow. 13 g 11 polyethylene glycol (GoLYTELY) 236-22.74-6.74 -5.86 gram solution Take 240 mL by mouth 1 (one) time for 1 dose. For a one time bowel cleanse. 240 mL 0 [DISCONTINUED] clonazePAM (KlonoPIN) 0.5 mg tablet TAKE 1 TABLET BY MOUTH EVERY DAY NEEDED (Patient taking differently: Take 1 tablet by mouth in the morning.) 30 tablet 0 [DISCONTINUED] desvenlafaxine (Pristiq) 100 mg 24 hr tablet Take 1 tablet (100 mg) by mouth in the morning. Do not crush, chew, or split. (Patient not taking: Re (more content not included)... [facility] 11-04-2023 Note Patient here for 6 m o follow up PAF, hypertension, and hyperlipidemia. Had echo in Jul 2023 at [facility]. He denies chest pain, palpitations, lightheadedness/syncope, and bleeding on Eliquis. Says his FRANKS is no more than usual for him. Review of Systems Cardiovascular: Positive for dyspnea on exertion. Hematologic/Lymphatic: Bruises/bleeds easily. All other systems reviewed and are negative. [facility] 11-03-2023 Note [facility] Gastroenterolog y New Patient Visit - History & Physical CHIEF COMPLAINT Chief Complaint Patient presents with New Patient Abdominal Pain Constipation Nausea HISTORY OF PRESENT ILLNESS: Kim Barron is a 68 y.o. male w/ pmh of Newly diagnosed CA lung stage 1 A- s/p radiation therapy, COPD, current every day smoker, HTN, Afib on Eliquis, BPH- s/p TURP, HIV on ART, w/ a pertinent GI history of IBS for > 20 years, in 05/2020, he experienced a proximal rectal perforation subsequent to a polypectomy performed during a colonoscopy. This necessitated an exploratory laparotomy with a sigmoid resection and end-colostomy. Subsequently, in 09/2021, he underwent colostomy reversal and ventral hernia repair, presenting for chronic abdominal pain and constipation He has had IBS for years, for the most part it has been IBS-D, however over the past 5 or so years he has started to have issues w/ constipation, he reports constipation really worsened after having his colostomy. He reports always feeling full . BMs occurring up to a week apart, with significant effort and straining for small stools, usually BSS 1 type. Takes Doculax PRN, usually 2-3 tabs at a time, every week or so, reports inadequate results with this. Previously used Miralax, however stopped d/t aversions. Intermittent stabbing abdominal pain localized to the mid-to-left side, worse at his previous colostomy site. Pain is not continuous. Associated symptoms include bloating, nausea, upset stomach worsen postprandially, accompanied by excessive gas and borborygmus, with no significant improvement after bowel movements. Consumes a high-fiber diet, however poor intake of water and limited physical activity d/t COPD. Other risk factors for constipation include amlodipine. Due next year for CLN unsure if he wants another No family history of GI disorders including malignancy. PREVIOUS LABS/IMAGING/ENDOSCOPY: CT Abdomen and Pelvis without intravenous contrast 08/24/23: All CT scans at this facility use dose modulation, iterative reconstruction, and/or weight based dosing when appropriate to reduce radiation dose to as low as reasonably achievable. COMPARISON: CT abdomen pelvis 09/20/2020 FINDINGS: Unchanged scarring at the left lung base. The liver, spleen, pancreas, and adrenal glands are grossly unremarkable for noncontrast technique. Small calcified gallstones. No evidence of acute cholecystitis. No overt biliary dilatation. Benign right renal cyst which are no further follow-up. No collecting system dilatation or stones. Bladder is unremarkable. Pelvic organs are unremarkable. Postsurgical changes of a partial colectomy. Moderate amount of stool in the colon. Tortuous course of the colon. Small bowel is nondistended without evidence of obstruction. Stool and small bowel suggests a slow bowel transit. Stomach is unremarkable. No free air. No free fluid. The abdominal aorta is normal in course and caliber. Moderate atheromatous vascular calcifications no enlarged lymph nodes. Mild degenerative changes in the spine. Vertebral body heights are maintained. Rectus diastases. IMPRESSION: * No acute process in the abdomen or pelvis. Specifically no renal collecting system dilatation or stones. * Moderate colonic stool burden. CLN 05/2020: - Diverticulosis in the sigmoid colon. - One small polyp in the distal sigmoid colon, removed with a cold snare. Resected and retrieved. Pathology: Hyperplastic - Internal hemorrhoids. LABORATORY DATA: CBC: Lab Results Component Value Date WBC 7.66 10/29/2023 RBC 4.72 10/29/2023 HGB 16.0 10/29/2023 HCT 46.7 10/29/2023 MCV 98.9 (H) 10/29/2023 RDW 12.9 10/29/2023 PLT 273 10/29/2023 PT/INR Lab Results Component Value Date PT 13.5 10/02/2020 INR 1.03 10/02/2020 BMP: Lab Results Component Value Date NA 141 10/29/2023 K 4.6 10/29/2023 CL 107 10/29/2023 BUN 19 10/29/2023 CREATININE 1.09 10/29/2023 EGFR 74.9 10/29/2023 GLU 98 10/30/2021 LFTs: Lab Results Component Value Date BILITOT 0.5 10/30/2021 BILIDIR 0.1 09/25/2021 ALKPHOS 93 10/30/2021 AST 17 10/30/2021 ALT 18 10/30/2021 ALBUMIN 4.0 10/30/2021 PROT 6.4 10/30/2021 Celiac Serology: No results found for: TTGA , IGA B12/Folate/Iron studies: Lab Results Component Value Date [id number] 471 10/17/2020 FOLATE 10.98 10/17/2020 FERRITIN 118 10/17/2020 IBD Biomarkers No results found for: CRP No results found for: SEDRATE Viral Hepatitis Lab Results Component Value Date HEPCAB NONREACTIVE 11/10/2018 No results found for: GGT Liver Workup No results found for: SMOOTHMUSCAB , MITOAB Lab Results Component Value Date TSH 2.41 10/17/2020 FREET4 0.87 07/28/2018 Lab Results Component Value Date TSH 2.41 10/17/2020 Pancreatitis Lab Results Component Value Date LIPASE 8 (L) 09/25/2021 TRIG 74 10/04/2020 CALCIUM 9.5 10/29/2023 (more content not included)... [facility] 10-29-2023 Note Assessment/Plan No diagnosis found. HIV Disease/ Asymptomatic: Patient has an undetectable viral load on current antiretroviral therapy and is tolerating it well. There are no side effects or drug interactions on review of medications and review of systems. Patient will continue the current ART with labs and follow-up within 4 - 6 months to ensure continuation of viral suppression. Patient also received social media project manager and support services from the [employer] staff. We will contact the patient if there are any abnormalities detected that warrant further intervention or work up. -> No recent lab available, will re-end HIV viral load, T cell sub type, RPR, GC, CBC, BMP. The patient also brought to medical attention the following non-HIV related issues with the following assessment and treatment plan instituted at this visit: Regarding HIV management, the patient will contact us if any new symptoms or any new complaints develop before the next visit otherwise we'll see the patient back in 4-6 months for a routine visit. Newly diagnosed CA lung stage 1 A- s/p radiation therapy. COPD- not on oxygen. Chronic ongoing smoking- still actively smoking. Detail counseling was done at bedside for cessation. Resources offered. Afib - saw cardiology and had episode of afib - now on eliquis BPH- s/p TURP. Subjective HPI: Kim Barron is a 68 y.o. male presents for HIV medical care. Chief Complaint: HIV Date Dx 2009 ART regimen Biktarvy CD4/date 1100 on 06/2023 VL/date UVL on 10/30/2022. No recent lab available. The patient reports greater than 90 percent adherence to ART medications and is tolerating them well with no side effects.In addition, the following was brought to medical attention: Newly diagnosed CA lung stage 1 A- s/p radiation therapy. COPD- not on oxygen. Afib - saw cardiology and had episode of afib - now on eliquis BPH- s/p TURP. Review of Systems Constitutional: Negative for appetite change, fatigue, fever and unexpected weight change. No night sweats HENT: Negative for congestion, ear discharge, ear pain, nosebleeds, rhinorrhea, sinus pain, trouble swallowing and voice change. No white spots in mouth Eyes: Negative for photophobia, discharge and visual disturbance. No eye swelling Respiratory: Positive for shortness of breath. Negative for cough. Has COPD and no change in SOB, not associated with afib symptoms Cardiovascular: Negative for chest pain. Gastrointestinal: Negative for abdominal pain, constipation, diarrhea, nausea and vomiting. Genitourinary: Positive for frequency. Negative for dysuria and hematuria. No urinary incontinence No genital discharge Musculoskeletal: Negative for arthralgias, joint swelling and myalgias. No joint pain Skin: Negative for rash. Neurological: Negative for dizziness, weakness, numbness and headaches. Hematological: Negative for adenopathy. Psychiatric/Behavioral: Negative for sleep disturbance. Objective Physical Exam Pulmonary: Breath sounds: Wheezing present. Consult on 09/08/2023 Component Date Value Color, Urine 09/08/2023 Yellow Clarity, Urine 09/08/2023 Clear pH, Urine 09/08/2023 5.0 Leukocytes, Urine 09/08/2023 Trace (A) Nitrite, Urine 09/08/2023 Negative Protein, Urine 09/08/2023 Negative Glucose, Urine 09/08/2023 Negative Bilirubin, Urine 09/08/2023 Negative Specific Olla, Urine 09/08/2023 1.031 (H) Ketones, Urine 09/08/2023 Trace (A) Blood, Urine 09/08/2023 Negative Urobilinogen, Urine 09/08/2023 2.0 (A) Urine Culture 09/08/2023 <10,000 CFU/ML No Significant Growth RBC, Urine 09/08/2023 0-2 (A) WBC, Urine 09/08/2023 3-5 (A) Squamous Epithelial, Uri* 09/08/2023 Occasional Mucus, Urine 09/08/2023 Few Casts, Urine 09/08/2023 Present (A) Hyaline Casts, UA 09/08/2023 1 (H) Crystals, Urine 09/08/2023 Present (A) Calcium Oxalate Crystals* 09/08/2023 Moderate (A) Orders Only on 08/23/2023 Component Date Value Course ID 08/23/2023 1 Course Intent 08/23/2023 Curative Course Start Date 08/23/2023 07/29/2023 3:43 PM Course End Date 08/23/2023 08/23/2023 9:10 AM Course First Treatment D* 08/23/2023 08/12/2023 3:50 PM Course Last Treatment Da* 08/23/2023 08/17/2023 10:51 AM Course Elapsed Days 08/23/2023 5 Reference Point ID 08/23/2023 RUL DIBH Reference Point Dosage G* 08/23/2023 50 Plan ID 08/23/2023 RUL DIBH Plan Name 08/23/2023 RUL DIBH Plan Fractions Treated t* 08/23/2023 4 Plan Total Fractions Pre* 08/23/2023 4 Plan Prescribed Dose Per* 08/23/2023 12.5 Plan Total Prescribed Do* 08/23/2023 5,000 Plan Primary Reference P* 08/23/2023 RUL DIBH Orders Only on 08/17/2023 Component Date Value Course ID 08/17/2023 1 Course Intent 08/17/2023 Curative Course Start Date 08/17/2023 07/29/2023 3:43 PM Session Number 08/17/2023 4 Course First Treatment D* 08/17/2023 08/12/2023 3:50 PM Course Last Treatment Da* 08/17/2023 08/17/2023 10:51 AM Course Elapsed Da (more content not included)... [facility] 10-29-2023 Note Project Coach met with patient on 10/29/2023 lead generation marketing manager and patient discussed social determinants of health and program targets, below as follows: Medication: The patient reports adherence to this regimen Insurance: Medicare Housing/Utilities: Patient reports secure housing. Patient able to afford utilities/does not have utility bills. Transportation: Patient has access to transport via own vehicle. Food: Patient reports food insecurity. Mental Health: was seeing Kiana within clinic - pt requesting to be seen again. Prevention for Positives: [facility] reviewed Prevention for Positives information with patient., Patient understands U=U. Social Support: Patient reports positive social support. Reports positive supports. Eligbility: Application submitted this visit. lead generation marketing manager updated patient's Care Plan, Acuity Scale Assessment, and SDOH Targets appropriately. lead generation marketing manager will continue to coordinate with patient and providers as needed. Additional Needs: Pt disclosed having food insincerities, [facility] informed pt to contact local [facility], meals on wheels program. Pt was agreeable. Pt still needs to submit eligibility documents . [facility] to follow up with pt regarding alternative treatment. [facility] 09-08-2023 Note Chief complaint: Uri nary tract infection History of Present Illness: Location: Lower urinary tract Duration: 2 recent infections Context/Modifying Factors: Voiding Associated signs and symptoms: Denies gross hematuria Review of Systems: A 10 point review of systems was performed and is otherwise negative unless included in the chief complaint, history of present illness, histories, or the assessment and plan. Social History: Social History Socioeconomic History Marital status: Single Spouse name: Not on file Number of children: Not on file Years of education: Not on file Highest education level: Not on file Occupational History Not on file Tobacco Use Smoking status: Every Day Packs/day: 0.50 Years: 40.00 Additional pack years: 0.00 Total pack years: 20.00 Types: Cigarettes Smokeless tobacco: Never Substance and Sexual Activity Alcohol use: Yes Alcohol/week: 2.0 standard drinks of alcohol Types: 2 Glasses of wine per week Drug use: Yes Types: Marijuana Comment: daily Sexual activity: Not on file Other Topics Concern Not on file Social History Narrative Not on file Social Determinants of Health Financial Resource Strain: Not on file Food Insecurity: Not on file Transportation Needs: Not on file Physical Activity: Not on file Stress: Not on file Social Connections: Not on file Intimate Partner Violence: Not At Risk (04/30/2023) [place] Safety & Environment Fear of Current or Ex-Partner: No Emotionally Abused: Not on file Physically Abused: Not on file Sexually Abused: Not on file Physically or Sexually Abused: Not on file Housing Stability: Not on file Past Medical/Surgical History: Past Medical History: Diagnosis Date Anxiety state COPD (chronic obstructive pulmonary disease) (CMS/HCC) Cystitis Dysthymia Essential hypertension Generalized anxiety disorder Human immunodeficiency virus infection (CMS/HCC) Hyperlipidemia Hypertension Intracranial aneurysm Lymphadenopathy Paroxysmal atrial fibrillation (CMS/HCC) 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 Vitamin D deficiency Family History: Family History Problem Relation Name Age of Onset Heart attack Mother Uterine cancer Mother Hypertension Mother Lung cancer Father possibly Diabetes Sister Other (malignant neoplastic disease) Paternal Grandmother Physical Exam: Constitutional: In no acute distress Psychiatric: Normal affect, alert and oriented HEENT: No scleral icterus Pulmonary: Is not laboring to breathe Cardiovascular: No obvious cyanosis of the extremities Extremities: No significant lower extremity edema Neurologic: Grossly nonfocal Skin: No jaundice Diagnoses: Concern for urinary tract infection Elevated PSA Assessment and Plan: The patient is a 68-year-old male who recently completed 2 courses of antibiotics for urinary tract infection. He has a history of a TURP in the past. He feels like he has an infection today. We will send a UA with microscopic and a urine culture. Empirically will we will treat with Keflex. Will also give Pyridium for his discomfort. He has a history of an elevated PSA and his most recent PSA from June was 6.2. He had an MRI of the prostate last month that showed a PI-RADS 2 changes not concerning for prostate cancer. He has a new diagnosis of lung cancer and a PET scan prior to the prostate MRI showed increased activity in the right aspect of the prostate gland. He recently completed radiation for the lung cancer diagnosis. We will see him back in a few months with a PSA. Beth Nicole MD [facility] 08-27-2023 Note Informed [place] HFA prescription sent [facility]. Dr. Carroll also placed referral to [facility] Urology. They should call him to schedule appt but if he does not hear from them by next week, he should call them to schedule. [facility] 08-23-2023 Miscellaneous Notes Patient called and said he had a positive urine culture on 08/03 and was positive for E.Coli. He was started on Cipro and finished that almost 2 weeks ago. He started having pain in his back near his right kidney. He states the pain is bad enough that it is making him nauseous. He is thinking possible kidney infection. He states that he knows he has a small cyst on one of kidneys but doesn't remember which one and it hasn't been checked for awhile. Please advise Symptoms: urgency, frequency, urethral itching, back pain, nausea, chills, unsure about fever-not checking Patient's # If he is having fever and chills, accompanied with his other symptoms, I would advise he be evaluated in the ER. Called patient back and advised him that it was recommended he go to the ER. Patient expressed understanding. documented in this encounter [facility] 08-23-2023 Telephone encounter Note Patient called and said he had a positive urine culture on 08/03 and was positive for E.Coli. He was started on Cipro and finished that almost 2 weeks ago. He started having pain in his back near his right kidney. He states the pain is bad enough that it is making him nauseous. He is thinking possible kidney infection. He states that he knows he has a small cyst on one of kidneys but doesn't remember which one and it hasn't been checked for awhile. Please advise Symptoms: urgency, frequency, urethral itching, back pain, nausea, chills, unsure about fever-not checking Patient's # [facility] 08-23-2023 Telephone encounter Note If he is having fever and chills, accompanied with his other symptoms, I would advise he be evaluated in the ER. [facility] Work Phone: 08-23-2023 Telephone encounter Note Called patient back and advised him that it was recommended he go to the ER. Patient expressed understanding. [employer] [facility] 08-16-2023 Note OTV RUL 3/4 Pt william ating well. No changes. [facility] 08-16-2023 Note [facility] Department of Radiation Oncology [address] [place] [id number] Date of Service: 08/16/23 Patient Name: Kim Barron Patient : 1955 Radiation Oncology ON-TREATMENT VISIT NOTE Diagnosis: 68 y.o. man with a clinical diagnosis of Stage IA lung cancer, NOS, receiving a course of stereotactic body radiotherapy (SBRT). Dose Accrued: 3750/5000 cGy Subjective: Patient is doing well, tolerating daily treatment set-up and delivery without issues. He voices no complaints. No difficulty with breath hold technique. Energy level is slightly decreased, but daily routine is largely unchanged. Patient denies worsening SoB, CP, rib cage pain, cough, or other symptoms. Objective: Visit Vitals BP 128/77 (BP Location: Left arm, Patient Position: Sitting) Pulse 70 Temp 36.4 ???C (97.6 ???F) (Oral) On exam, ECOG 1-2, well appearing, in NAD, sitting comfortably in a chair, grossly stable exam with no signs of RT induced toxicity. Plan: Continue radiotherapy as planned, will finish the course tomorrow. RTC in 3 months with repeat imaging. Patient's questions were answered to satisfaction; patient verbalized a good understanding to everything. He is seeing Dr. Ware to work-up the prostate finding, and will undergo a biopsy sometime soon (MRI was interpreted as PI-RADS 2). Sarika Bartholomew MD [facility] 08-09-2023 Note Mets >4 ECG sinus rhythm with PAC, no ischemic concerns 11/10/22 Ok to proceed with SBRT of RUL He is low-moderate risk Loop implant located on left upper chest and hopefully will be out of radius of radiation. No concerns or necessary precautions with implantable loop monitor. [facility] 07-30-2023 Note Per DB cardiac clearance. [facility] 07-29-2023 Note [facility] t [facility] Department of Radiation Oncology [address] [place] [address] RADIATION ONCOLOGY CONSULTATION NOTE Date of Service: 07/29/23 Patient Name: Kim Barron Patient : 1955 Diagnosis: 68 y.o. man with a clinical diagnosis of Stage IA lung cancer, NOS. Chief Complaint: I have a tiny lung cancer. History of Present Illness: Patient presents in initial Radiation Oncology consultation as per the request of Dr. Tariq. We have been asked to evaluate the patient for radiotherapy options. Mr. Barron is a 68 y.o. man with HIV, COPD and atrial fibrillation; he is an every day smoker. He had a LDCT screening in April 2023 that noted a 9 mm RUL posterio solid nodule, subsequently FDG avid. Patient is medically inoperable due to COPD. He has exertional dyspnea such as when climbing stairs, carrying groceries, etc. He has a chronic cough productive of mucoid sputum. He lost 20 lbs, states it's due to a bowel surgery. He is also s/p TURP and has an elevated PSA; he is seeing Dr. Nicole for this. I reviewed the patient's oncologic, medical, surgical, social, and family history, as well as allergies/medications as per the medical record. Oncology History Malignant neoplasm of upper lobe of right lung (CMS/HCC) 07/29/2023 Initial Diagnosis Malignant neoplasm of upper lobe of right lung (CMS/HCC) 07/29/2023 - Radiation Therapy This is the current list of radiation treatment: Radiation Therapy Treatment Details (Noted on 07/29/2023) Site: Right Lung Technique: SBRT Goal: Curative Planned Treatment Start Date: No planned start date specified Radiation Treatments SocHx: Smokes marijuana every day; smoking since age 18, 0.5 ppd, every day smoker; lives alone. FamHx: Father, , ? Lung cancer; mother, , from cardiac issues, uterine cancer; paternal aunt and grandma both had cancer. Review of Systems: I reviewed the Review of Systems with the patient. Clinically pertinent ones noted in the HPI. All others have been reviewed and are negative. RoS + exertional dyspnea, cough productive of mucoid sputum, weight loss, daytime frequency, nocturia x3, incomplete bladder emptying, intermittency. Patient is s/p TURP. Physical Exam: BP 123/77 (BP Location: Left arm, Patient Position: Sitting, BP Cuff Size: Adult) Pulse 73 Temp 36.4 ???C (97.6 ???F) (Oral) Resp 18 Wt 56.7 kg (125 lb) BMI 17.94 kg/m??? GENERAL: ECOG 1-2, well-appearing, in no apparent distress, alert and fully oriented, answers questions appropriately, unaccompanied. HEENT: Normocephalic, atraumatic, PER, EOMI, mucous membranes moist, no suspicious asymmetry or abnormal mass lesions. NECK: No cervical or supraclavicular lymphadenopathy. LUNGS: Clear to auscultation bilaterally. HEART: Normal rate, regular rhythm. Normal S1/S2, no murmurs/rubs/gallops appreciated. ABD: No visceromegaly or masses. EXTREMITIES: Normal range of motion, no cyanosis/clubbing/edema. LYMPH: No appreciable adenopathy. NEURO: AOx4, computer hardware technician grossly normal, gait normal, muscle power in extremities normal. PSYCH: Appropriate affect for the clinical situation. Insight and judgment not impaired. LABS: PSA 6.2 ng/mL in Jun 2023 RADS: *Hypermetabolic 0.9 cm nodule in the posterior aspect of the right upper lobe highly concerning for malignancy. No FDG avid metastatic disease. *Focal area of significantly increased FDG activity in the right aspect of the prostate gland, concerning for prostate malignancy until proven otherwise. PATH: No recent studies. Assessment: 68 y.o. man with a clinical diagnosis of Stage IA lung cancer, NOS. Plan: We reviewed the imaging with the patient. Per Dr. Chadwick, biopsying this small lesion is low-yield and high risk. The working clinical diagnosis is early stage lung cancer, NOS. The index lesion in the right lung is relatively small and in a favorable peripheral location; it is an ideal size and location for stereotactic body radiotherapy (SBRT) treatment, which we recommend, precisely, a 4-5 fraction course (given the proximity to the chest wall). I explained the logistics of 4D CT simulation, respiratory gating/deep inspiration breath hold technique, radiation treatment planning, delivery of the daily treatments, the reasonably anticipated side effects while on treatment (e.g., fatigue), and possibly (vs. improbably) long-term. I explained the measures we take to minimize stray radiation dose to the normal lung, heart, rib cage, and normal tissues in general. Patient's questions were answered to satisfaction. Patient conveyed a good understanding to everything, and provided a written informed consent agreeing to proceed with the proposed plan. Patient will undergo CT simulation today, with planned treatment start in ~7 days. Thank you very much for involving our team in the oncologic care of Mr. Quick (more content not included)... [facility] 07-29-2023 Note CORRECTIONAL SUPERVISING COOK NOTE: Kim is here for Consult unaccompanied. Pt has been referred by Dr. Chadwick. Pt reports he had Lung Screening scan in 05/2023 followed by PET scan. Pt reports he is here to learn more about radiation for his lung cancer, RUL. Pt reports SOB with activity due to COPD. Respirations are unlabored, O2 sat 98% RA. Pt denies c/o pain. Pt reports he will be scheduled for Prostate MRI/biopsy to work up Prostate due to rising PSA. Pt denies pain. PT DENIES HAVING PRIOR RADIATION OR CHEMOTHERAPY. pT REPORTS HE HAS AN IMPLANTED [employer] CARDIAC RHYTHM MONITOR. PT DENIES HAVING ANY CONNECTIVE TISSUE DISEASE. [facility] 07-29-2023 Note PHYSICIAN CLINICAL T REATMENT PLANNING NOTE Identification: Kim Barron is a 68 y.o. male with early stage lung cancer, NOS. Kim has agreed to proceed with Radiation Therapy. The following represents the clinical treatment plan after I considered the patient???s clinical history, exam findings and relevant testing. Tests and supporting medical records were also reviewed to define the tumor location and extent of disease. Patient has not previously received radiation therapy. Patient has a loop recorder. ? N/A Radiation Therapy Planning Treatment Site 1 Treatment intent Curative Planned start date 08/09/2023 Treatment site Right Lung Technique IGRT and SBRT SBRT sub-technique IMRT IGRT localization type Daily CBCT Special service Special treatment procedure Medical necessity statement Advanced radiotherapy technique will require additional treatment planning time and effort for optimization. Prescribed fraction dose 10 Gy Prescribed total dose 50 Gy Prescribed number of fractions 5 Frequency Every 1 day Energy MV Patient position Supine, head first Immobilization Cradle I am ordering CT guidance for placement of XRT wong Yes Scan area: thorax Isocenters: tentative isocenter Slice thickness: 1mm [facility] Scan requested: Yes - Simulation will be performed on CT Scanner to accomplish a reproducible treatment position, to determine optimal beam arrangements and to .design beam modifying devices and immobilization devices: Alphacradle. Verification Sim (films Day1): Yes Ongoing images: Daily image guided radiotherapy. Image fusion requested: will be performed using patient's PET/CT A 4D CT will be performed for assessment of respiratory motion and deformation of the target volume. This assessment was used to generate an internal target volume designed for maximal normal tissue sparing and reduction of ptv margins. Additional comments: [facility] 07-21-2023 Evaluation + Plan note Associated Problem(s): Elevated PSA I will call him if Dr. Ware disagrees with the plan and wants to do a random biopsy instead. I will notify him of the MRI results through [employer]. If no lesion is identified, then can cancel the fusion biopsy and schedule a random biopsy instead. [facility] 07-21-2023 Miscellaneous Notes Associated Problem(s): Elevated PSA I will call him if Dr. Ware disagrees with the plan and wants to do a random biopsy instead. I will notify him of the MRI results through [employer]. If no lesion is identified, then can cancel the fusion biopsy and schedule a random biopsy instead. documented in this encounter [facility] 07-21-2023 Miscellaneous Notes PSA is up at 6.16 (previous was 4.50) He also had a PET-CT for a pulmonary nodule. This confirmed a suspicious pulmonary nodule but also showed increased FDG activity in the right aspect of the prostate gland, concerning for cancer. I was going to have him repeat the MRI but suspecting that this will come back abnormal, hold time for the MRI fusion. Agree or set him up for a prostate ultrasound biopsy? Thank you Sounds like a great plan I called him. He is scheduled for the prostate MRI on 08/10/2023. Althea: Please schedule him for MRI fusion biopsy with 1 of the surgeons at [place] per their normal protocol. This will need to be after his MRI which is scheduled on the 10 of August. He will need an off day appointment with Dr. Ware in [place] or [place] to review the biopsy results. [facility] SCHEDULED PATIENT FOR 09/08/23 AT 1030A ARRIVE AT 9A PAT ON 08/25/23 AT 230P Please see notes below. MRI was read as PI-RADs 2 with no suspicious lesions. What are your thoughts about his PSA and PET results? Would you recommend random biopsy? Anything else? Thank you Based on his PSA density he should get scheduled for a biopsy of the prostate I called him and he agrees with the plan. He had it done in 2018 and knows what to expect. We reviewed the potential risks associated with the procedure. Althea: As discussed, please cancel the fusion biopsy. Instead, please schedule him for prostate ultrasound/biopsy with Dr. Ware under local anesthesia, per his normal protocol. He will need an off day appointment with Dr. Ware to review the pathology results. Thank you Spoke with pt and scheduled for 09/10/23 at 10a arrive at 930a Follow up on 09/21/23 at 1145a Please call in [facility] for patients biopsy. Thank you documented in this encounter [facility] 07-21-2023 Telephone encounter Note PSA is up at 6.16 (previous was 4.50) He also had a PET-CT for a pulmonary nodule. This confirmed a suspicious pulmonary nodule but also showed increased FDG activity in the right aspect of the prostate gland, concerning for cancer. I was going to have him repeat the MRI but suspecting that this will come back abnormal, hold time for the MRI fusion. Agree or set him up for a prostate ultrasound biopsy? Thank you [facility] 07-21-2023 Telephone encounter Note Sounds like a great plan [facility] 07-21-2023 Telephone encounter Note I called him. He is scheduled for the prostate MRI on 08/10/2023. Althea: Please schedule him for MRI fusion biopsy with 1 of the surgeons at [place] per their normal protocol. This will need to be after his MRI which is scheduled on the 10 of August. He will need an off day appointment with Dr. Ware in [place] or [place] to review the biopsy results. [facility] 07-21-2023 Telephone encounter Note [facility] SCHEDULED PATIENT FOR 09/08/23 AT 1030A ARRIVE AT 9A PAT ON 08/25/23 AT 230P [employer] [facility] 07-21-2023 Telephone encounter Note Please see notes below. MRI was read as PI-RADs 2 with no suspicious lesions. What are your thoughts about his PSA and PET results? Would you recommend random biopsy? Anything else? Thank you [facility] 07-21-2023 Telephone encounter Note Based on his PSA density he should get scheduled for a biopsy of the prostate [facility] 07-21-2023 Telephone encounter Note I called him and he agrees with the plan. He had it done in 2018 and knows what to expect. We reviewed the potential risks associated with the procedure. Althea: As discussed, please cancel the fusion biopsy. Instead, please schedule him for prostate ultrasound/biopsy with Dr. Ware under local anesthesia, per his normal protocol. He will need an off day appointment with Dr. Ware to review the pathology results. Thank you [facility] 07-21-2023 Telephone encounter Note Spoke with pt and scheduled for 09/10/23 at 10a arrive at 930a Follow up on 09/21/23 at 1145a [facility] [employer] [facility] 07-21-2023 Telephone encounter Note Please call in [facility] for patients biopsy. [facility] 07-21-2023 History of Presen t illness Narrative Images from the original note were not included. [address] [place] [address] A [facility] [id number] Patient: Kim Barron Date of : 1955 Encounter Date: 07/21/2023 History of Present Illness: The patient is a 68 y.o. male, an established patient, and is here for follow-up. Please see his history below. PSA 06/25/23: 6.16 He was recently diagnosed with a pulmonary nodule. He had a follow-up PET-CT scan done on 06/21/2023 through [facility]. He is able to pull up the report. This confirmed a pulmonary nodule suspicious for cancer. He is scheduled to see Oncology soon. It sounds like he is planning to go forward with radiation. Report also mentions that there was a focal area of significantly increased FDG activity in the right aspect of the prostate gland concerning for prostate cancer. Summary of old records: Notes from Dr. Ware 05/19/2022: The patient is a 66 y.o. male, an established patient, and is here for followup. follow-up. He has a history of progressive lower urinary tract symptoms which ultimately resulted in a TURP January 28, 2021. Final pathology showed BPH. He also has a history of elevated PSA. He had a prostate biopsy performed October 2017 which was benign. PSA scot to 7.79 in March 2020 an MRI showing no concerning prostate lesions. He had a possible annular constriction lesion within the distal rectosigmoid colon he had been referred back for colonoscopy which was done. PSA decreased between 4.5 in 5.6. Voiding reasonably well but still with some double voiding. Has decreased his caffeine consumption but still consumes 2 cups of coffee in the morning and 2 at night. Urinalysis today: No results for input(s): EXTPOCURCO , EXTPOCURCH , EXTPOCAPP , EXTPOCURBS , EXTPOCURBIL , EXTPOCUKET , EXTPOCUSPG , EXTPOCUHGB , EXTPOCUPRO , EXTPOCUURO , EXTPOCULEU , EXTPOCUNIT , EXTPOCUWBC , EXTPOCUBLD , EXTPOCURBC , EXTPOCUCRY , EXTPOCUBAC , EXTPOCUTREP , EXTPOCUPH in the last 72 hours. Last BUN and creatinine: Lab Results Component Value Date BUN 14 05/12/2021 Lab Results Component Value Date CREATININE 1.34 (H) 05/12/2021 Last PSA: Lab Results Component Value Date PSA 6.16 (H) 06/25/2023 PSA 4.50 (H) 05/11/2022 PSA 3.88 11/26/2021 PSA 5.66 (H) 11/08/2021 PSA 5.04 (H) 04/28/2021 No results found for: PROSTATICSP Past Medical, Family, and Social History Update: The following portions of the patient's history were reviewed and updated as appropriate: allergies, current medications, past family history, past medical history, past social history, past surgical history and problem list. 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[facility]) Arthritis Back pain Dental disease full dentures Diverticulitis of colon Emphysema of lung ([facility]) Hand injury left top of hand swollen Headache Hematuria HIV (human immunodeficiency virus infection) [place]) Hypertension Inflammatory bowel disease PONV (postoperative nausea and vomiting) Seasonal allergies Seasonal allergies Shortness of breath Tuberculosis Tuberculosis Visual impairment glasses Past Surgical History: Procedure Laterality Date ABDOMINAL SURGERY BIOPSY PROSTATE NEEDLE / PUNCH / INCISIONAL COLONOSCOPY COLONOSCOPY N/A 05/24/2020 Performed by Adryan Funk MD at [facility] COLONOSCOPY N/A 04/28/2019 Performed by Adryan Funk MD at [facility] CREATION OF DIVERTING COLOSTOMY Left 05/28/2020 Performed by Adryan Funk MD at [facility] CYSTOSCOPY N/A 12/03/2020 Performed by Polo Ware MD at [facility] CYSTOSCOPY PROSTATE BIOPSY TO FOLLOW DOWNSTAIRS N/A 10/14/2017 Performed by Polo Ware MD at [facility] CYSTOSCOPY TRANSURETHRAL RESECTION PROSTATE N/A 01/28/2021 Performed by Polo Ware MD at [facility] EXPLORATORY LAPAROTOMY N/A 05/28/2020 Performed by Adryan Funk MD at [facility] FLOW STUDY, BLADDER SCAN PVR N/A 08/10/2017 Performed by Joon Doshi MD at [facility] HERNIA REPAIR INJECTION BURSA SMALL JOINT Bilateral 1st CMC Bilateral 05/03/2020 Performed by Eric Silva MD at [facility] PAIN INJECTION BURSA SMALL JOINT Bilateral 1st [facility] Bilateral 12/29/2019 Performed by Eric Silva MD at [facility] INJECTION BURSA SMALL JOINT Bilateral 1st [facility] Joint Bilateral 03/31/2019 Performed by Eric Silva MD at [facility] INJECTION BURSA SMALL JOINT Bilateral 1st CMC jt Bilateral 09/01/2019 Performed by Eric Silva MD at [facility] INJECTION BURSA SMALL JOINT: bilat CMC Bilateral 12/30/2018 Performed by Eric Silva MD at [facility] INJECTION MEDIAL BRANCH NERVE BLOCK: right C34 45 56 Right 12/12/2018 Performed by Eric Silva MD at [facility] MANDIBLE SURGERY RESECTION BOWEL. SIGMOID COLON N/A 05/28/2020 Performed by Adryan Funk MD at [facility] REVISION COLOSTOMY TONSILLECTOMY Family History Problem Relation Age of Onset Lung cancer Father Heart attack Mother Cancer Mother Uterine cancer Mother Lung cancer Paternal Aunt Cancer Paternal Grandmother Breast cancer Neg Hx Current Outpatient Medications Medication Sig Dispense Refill albuterol (PROVENTIL HFA;VENTOLIN HFA) 90 mcg/actuation inhaler Inhale 2 puffs every 6 (six) hours as needed for wheezing. amLODIPine (NORVASC) 2.5 mg tablet Take 1 tablet (2.5 mg total) by mouth in the morning. aspirin 325 mg tablet Take 1 tablet (325 mg total) by mouth in the morning. atorvastatin (LIPITOR) 20 mg tablet Take 1 tablet (20 mg total) by mouth in the morning. 1 bwgnjoowl-buvfqhpg-reckmdt ala (BIKTARVY) 50-200-25 mg per tablet Take 1 tablet by mouth nightly. budesonide-formoterol (SYMBICORT) 80-4.5 mcg/actuation inhaler Inhale 2 puffs in the morning and 2 puffs before bedtime. clonazePAM (KlonoPIN) 0.5 mg tablet Take 1 tablet (0.5 mg total) by mouth in the morning. desvenlafaxine (PRISTIQ) 100 mg 24 hr tablet Take 1 tablet (100 mg total) by mouth in the morning. magnesium oxide (MAGOX) 400 mg tablet Take 2 tablets (800 mg total) by mouth in the morning. pantoprazole (PROTONIX) 40 mg EC tablet Take 1 tablet (40 mg total) by mouth in the morning. tretinoin (RETIN-A) 0.05 % cream ISMAEL TO FACE QPM UTD vardenafil (LEVITRA) 5 MG tablet Take 1 tablet (5 mg total) by mouth as needed for erectile dysfunction. No current facility-administered medications for this visit. (All medications reviewed and updated by provider since last office visit or hospitalization) Allergies: Patient has no known allergies. Tobacco History: Social History Tobacco Use Smoking Status Some Days Packs/day: 0.50 Years: 43.00 Additional pack years: 0.00 Total pack years: 21.50 Types: Cigarettes Start date: 10/10/1977 Last attempt to quit: 04/20/2020 Years since quittin.2 Smokeless Tobacco Never Tobacco Comments 01/09/21 quit (If patient a smoker, smoking cessation counseling offered) Social History: Social History Substance and Sexual Activity Alcohol Use Yes Comment: rare Review of Systems: General: Negative for chills and fever. Cardiovascular: Negative for chest pain and shortness of breath. Gastrointestinal: Negative for constipation, diarrhea, nausea, and vomitting. Physical Exam: BP 121/77 Pulse 73 Ht 177.8 cm (5' 10 ) Wt 59 kg (130 lb) BMI 18.65 kg/m Constitutional: He appears well-developed. No distress. Pulmonary/Chest: Effort normal. No respiratory distress. Neurological: He is alert and oriented for age. Gait normal. Rectal: Deferred Nursing note and vitals reviewed. Assessment and Plan: Jeremiah was seen today for follow-up. Diagnoses and all orders for this visit: Elevated PSA - MR prostate with and without contrast; Future Problem List Other Elevated PSA - Primary Overview History of elevated PSA treated for prostatitis with improvement Now with increased PSA. PUS/Bx 10/14/17; vol 35.5 gms; PSA 6.99 - benign (2 cores with HGPIN) Plan to check prostate health index in 6 months 03/19/20: PSA 7.97. Plan for 3T MRI 04/23/20: MRI with no concerning prostate lesion. Possible annular constricting lesion within distal rectosigmoid colon. Correlation to colonoscopy recommended. Referral given back to Dr Funk who did his colonoscopy last year for an opinion. Plan recheck psa 6 months 10/29/20: PSA 8.02. Plan to recheck 6 months 05/06/21: PSA 5.04. Plan recheck 6 months 11/12/21: PSA 5.66. Looks good compared to prior values but up from Apr. Currently being treated for Urinary tract infection with Bactrim. He will drop off a post antibiotic urine specimen in 2 weeks and recheck PSA at that time. 05/19/22: PSA 4.5. In light of his prior mri, biopsy and history of prostatitis, this is stable and improved from prior workups. Plan to follow annually 06/26/2023: PSA 6.16 07/21/23: PSA is up and recent PET-CT showed increased FDG activity in the right aspect of the prostate gland. Will check with Dr. Ware but suspect that he will want a repeat prostate MRI and plan for MRI fusion biopsy. Current Assessment & Plan I will call him if Dr. Ware disagrees with the plan and wants to do a random biopsy instead. I will notify him of the MRI results through [employer]. If no lesion is identified, then can cancel the fusion biopsy and schedule a random biopsy instead. Relevant Orders MR prostate with and without contrast CAROLYN WESLEY This note was created with the assistance of a speech recognition program. While intending to generate a timely document that accurately reflects the content of the visit, no guarantee can be provided that every grammatical or spelling mistake has been or will be identified or corrected. Thank you for your understanding. CAROLYN Wesley 07/21/23 1746 [facility]21[facility]2023 Instructions CAROLYN Wesley - 07/21/2023 3:15 PM EST I am going to check with Dr. Ware, but suspect that he will want to repeat the prostate MRI. I am hoping that will identify the same lesion that was seen on your PET-CT. Assuming it will still show a spot that looks suspicious, I am going to hold time for a prostate biopsy. You will hear from 1 of the schedulers to get you set up. If Dr. Ware wants to go forward with a random biopsy instead, I will give you a call. Arthur: [phone] (Ext [phone]) documented [facility] 06-24-2023 Note Pulmonary Telehealth Visit Note Patient: Kim Barron Age: 68 y.o. : 1955 Account No.: [id number] Referring physician: Rashawn Carroll MD Chief complaint: Lung nodule RUL Date of phone call: 06/24/2023 HPI Kim Barron is a 68 y.o. male lifelong smoker with a [id number]-jwjj history, history of COPD, A-fib, HIV. Patient had a low-dose CT scan in April 2023 that reported a 9 mm right upper lobe posterior solid nodule. Subsequently he had a PET scan that showed the lesion to be active. The patient has baseline exertional dyspnea. He gets breathless with moderate exertion carrying grocery bags and climbing stairs. Patient reports a chronic cough productive of whitish sputum. He reports weight loss of 20 pounds which he attributes to his bowel surgery. Patient has no chest tightness, congestion, wheeze. No recent admissions. No personal history of cancer. No family history of lung cancer. No hazardous occupational environment exposures. Past Medical History: Diagnosis Date Anxiety state COPD (chronic obstructive pulmonary disease) (CMS/HCC) Cystitis Dysthymia Essential hypertension Generalized anxiety disorder Human immunodeficiency virus infection (CMS/HCC) Hyperlipidemia Hypertension Intracranial aneurysm Lymphadenopathy Paroxysmal atrial fibrillation (CMS/HCC) 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 Vitamin D deficiency Past Surgical History: Procedure Laterality Date EXPLORATORY LAPAROTOMY FLEXIBLE SIGMOIDOSCOPY MRA HEAD WO IV CONTRAST 02/11/2017 MRA HEAD WO IV CONTRAST 02/11/2017 PROSTATE SURGERY Allergies: Patient has no known allergies. Prior to Admission medications Medication Sig Start Date End Date Taking? Authorizing Provider albuterol 90 mcg/actuation inhaler INHALE 2 PUFFS BY MOUTH INTO THE LUNGS NEEDED 05/19/23 Yes Rashawn Carroll MD amLODIPine (Norvasc) 10 mg tablet Take 1 tablet (10 mg) by mouth in the morning. 04/30/23 04/29/24 Yes Rashawn Carroll MD apixaban (Eliquis) 5 mg tablet Take 1 tablet (5 mg) by mouth in the morning and at bedtime. 04/30/23 04/29/24 Yes Rashawn Carroll MD atorvastatin (Lipitor) 20 mg tablet Take 1 tablet (20 mg) by mouth in the morning. 04/30/23 Yes Rashawn Carroll MD Biktarvy 50-200-25 mg tablet Take 1 tablet by mouth in the morning. 04/30/23 Yes Rashawn Carroll MD clonazePAM (KlonoPIN) 0.5 mg tablet TAKE 1 TABLET BY MOUTH EVERY DAY NEEDED 01/11/23 Yes Kiana Goodson NP desvenlafaxine (Pristiq) 100 mg 24 hr tablet Take 1 tablet (100 mg) by mouth in the morning. Do not crush, chew, or split. 04/30/23 Yes Rashawn Carroll MD fluticasone propion-salmeteroL (Advair Diskus) 250-50 mcg/dose diskus inhaler Inhale 1 puff in the morning and at bedtime. Rinse mouth with water after use to reduce aftertaste and incidence of candidiasis. Do not swallow. 05/10/23 05/09/24 Yes Rashawn Carroll MD pantoprazole (ProtoNix) 40 mg EC tablet Take 1 tablet (40 mg) by mouth in the morning. Do not crush, chew, or split. 03/09/23 Yes Rashawn Carroll MD Social history: reports that he has been smoking cigarettes. He has been smoking an average of .5 packs per day. He has never used smokeless tobacco. He reports current alcohol use. He reports current drug use. Drug: Marijuana. Family History Problem Relation Name Age of Onset Heart attack Mother Uterine cancer Mother Hypertension Mother Lung cancer Father Diabetes Sister Other (malignant neoplastic disease) Paternal Grandmother Review of Systems: As mentioned in the History of Present Illness. Physical examination: No physical examination was performed. Encounter was held over the phone. Labs Results: Lab Results Component Value Date HGB 16.5 05/27/2022 HGB 15.1 10/30/2021 HGB 11.7 (L) 09/28/2021 HCT 47.7 05/27/2022 HCT 45.8 10/30/2021 HCT 33.9 (L) 09/28/2021 WBC 7.5 05/27/2022 WBC 8.24 10/30/2021 WBC 7.80 09/28/2021 BUN 15 05/27/2022 BUN 16 10/30/2021 BUN 12 09/28/2021 NA 137 05/27/2022 K 4.8 05/27/2022 CO2 25 10/30/2021 CO2 27 09/28/2021 CO2 27 09/27/2021 Radiology: No Chest X-ray results found for the past 24 hours LDCT lung screening Result Date: 06/02/2023 Lung Rads Category: Suspicious - 4B Recommendation: Follow up PET Electronically signed: Pablo Alatorre. Assessment and Plan: Right upper lobe 9 mm PET avid nodule found in the low-dose screening in April 2023 Plan: Discussed options with the patient given the high likelihood of lung cancer. Options of further is a short-term follow-up versus IR biopsy (low yield high risk) versus empiric radiation. Patient is electing for the latter. We will order and nodify to help with risk stratification. Will place a referral for radiation oncology, and ordered a pulmonary function test. It is unlikely that the patient be a surgical candidate given his significant emphysema on imaging and his longstanding history of COPD. Total time spe (more content not included)... [facility] 06-07-2023 Note Spoke with Kim. Informed that the LDCT was abnormal and Dr. Carroll made referral to Pulmonary and orders for PET/CT. Explained what [employer] is and why referral was ordered. Provided phone number [phone] to [facility] appt with Pulmonology. Gave radiology phone number to schedule PET/CT. Patient states understanding of instructions. Does not have any further questions. [facility] 10-17-2021 Note MR#: [id number] [facility] Pt. Name: Kim Barron Admitted: 09/15/2021 Discharged: 09/22/2021 Date of : 1955 Physician: John Tsang M.D. DISCHARGE SUMMARY ADMISSION DIAGNOSIS: Colostomy reversal with ventral hernia. DISCHARGE DIAGNOSIS: Status post colostomy reversal with ventral hernia repair. CONSULTS: There were no consultations on this admission. PROCEDURES: The patient had an elective colostomy reversal with ventral hernia repair by Dr. Brina Dunaway as well during the procedure had extensive lysis of adhesions, a rigid sigmoidoscopy. HISTORY OF PRESENT ILLNESS: The patient is a 66-year-old male, who is status post Alfredo procedure for perforated diverticulitis. He presented to Dr. Tsang in the Surgery Clinic for an elective colostomy reversal. He was scheduled to have that done on September 15 with a ventral hernia repair. The patient has a past medical history of perforated diverticulitis, hypertension, occasional marijuana use, HIV. No known allergies. HOSPITAL COURSE: Patient has procedure done on 09/15/2021 and tolerated the procedure well. He was then admitted for postoperative observation. The patient did have issues with complaints of nausea and vomiting at the beginning of his stay, but that improved as well as his postoperative pain. Once he was tolerating a diet and passing gas and having bowel movements, he was then discharged home. DISCHARGED TO: Patient was discharged to home. DISCHARGE CONDITION: Patient was discharged in stable condition, tolerating a diet and passing gas and having stool. DISCHARGE MEDICATION: Patient was instructed to resume his home medications and was also discharged on MiraLAX once daily, Protonix 40 mg daily, Flexeril 5 mg t.i.d. daily, oxycodone 5 mg every 6 hours as needed for postoperative pain. DISCHARGE INSTRUCTIONS: On discharge, patient was instructed to clean his midline abdominal surgical incision with soap and water and to pack his old ostomy site on the left upper quadrant with a wet-to-dry dressing. He was also instructed to record MOMO drain output daily and empty as needed or daily. The dressing was to be changed daily as well. FOLLOWUP: The patient was instructed to follow up in the Surgery Clinic with Dr. Tsang on September 30. He was also instructed to follow up and continue care with home health care for physical therapy, occupational therapy, and fdc to assist with PT, OT, and his wound changes. This patient was seen and examined on day of discharge and this discharge summary is in conjunction with any daily progress notes from the day of discharge. Electronically Signed by: John Tsang M.D. 10/22/2021 11:27 A John Tsang M.D. I personally saw this patient on the day of the encounter, performed the gilbert portion(s) of the service and participated in the management and confirm the resident's documentation. Please note there may be an additional personal documentation from me. Date Dict: 10/17/2021/08:58 A/Panchito Sanchez TAX EXAMINER Date Trans: 10/17/2021 09:44 A/kevin [id number] cc: Vishal Contreras M.D. [address] [facility] [address] [facility] 10-01-2021 Note MR#: [id number] [facility] Pt. Name: Kim Barron Admitted: 09/25/2021 Discharged: 09/28/2021 Date of : 1955 Physician: Betito Armstrong M.D. DISCHARGE SUMMARY PRINCIPAL DIAGNOSIS: Constipation. SECONDARY DIAGNOSES: 1. Hypertension. 2. Hyperlipidemia. 3. Atrial fibrillation. 4. Chronic obstructive pulmonary disease. 5. Human immunodeficiency virus. 6. Generalized anxiety disorder. HOSPITAL COURSE: The patient is a 66-year-old male status post colonoscopy reversal and ventral hernia repair on 09/15/2021, who presented to the ED several days after discharge complaining of nausea and inability to have a bowel movement since surgery. The patient had been passing gas and been discharged 3 days prior to arrival in ED. He also noted bright red blood per rectum. Vital signs and hemoglobin were stable upon presentation. CT revealed postoperative changes consistent with anastomosis. No evidence of abscess or leak. The patient was admitted and given a clear liquid diet and started on a bowel regimen. The following day milk of magnesia was added, after which the patient had a bowel movement and his nausea is significant improved. The patient reported several episodes of diarrhea following addition of milk of magnesia and he denied any more blood per rectum during admission. The patient's diet was advanced to gastric soft, which he tolerated well with no nausea or vomiting. [place] were removed prior to discharge. The patient was discharged on hospital day 3. Tolerating regular diet, ambulating and having regular bowel movements. Disposition is home with home health. DISCHARGE INSTRUCTIONS: Take milk of magnesia as needed for constipation. Ambulate as much as possible and keep appointments previously scheduled with Dr. Tsang. Electronically Signed by: Betito Armstrong M.D. 10/23/2021 09:59 A Betito Armstrong M.D. I personally saw this patient on the day of the encounter, performed the gilbert portion(s) of the service and participated in the management and confirm the resident's documentation. Please note there may be an additional personal documentation from me. Date Dict: 09/30/2021/06:18 P/Emma Harris MD Date Trans: 10/01/2021 01:07 A/kevin [id number] cc: Vishal Contreras M.D. [address] [facility] [address] [place] [address] [facility] Evaluation note Diagnosis Elevated PSA- Primary Elevated prostate specific antigen (PSA) documented [facility] this [facility] Summary Purpose Family History No Family History Records FoundNo Family History Records FoundNo Family History Records FoundNo Family History Records FoundNo Family History Records FoundNo Family History Records FoundNo Family History Records Found Advance Directives No Advanced Directives Records FoundLatest Code Status on File Code Status Date Activated Date Inactivated Comments Full Code 05/29/2020 7:47 AM 05/31/2020 9:50 PM Code Status History Code Status Date Activated Date Inactivated Comments Full Code 11/02/2017 9:01 AM 11/02/2017 5:26 PM Latest Code Status on File Code Status Date Activated Date Inactivated Comments Full Code 05/29/2020 7:47 AM 05/31/2020 9:50 PM Code Status History Code Status Date Activated Date Inactivated Comments Full Code 11/02/2017 9:01 AM 11/02/2017 5:26 PM Reason for Referral Specialty Diagnoses / Procedures Referred By Sarah de los santos Referred To Contact Radiology Diagnoses Elevated PSA Procedures MR prostate with and without contrast Arthur Carvalho I, [address] [place] [address] Referral ID Status Reason Start Date Expiration Date V isits Requested Visits Authorized [id number] Pending Review 07/21/2023 07/20/2024 1 1 Additional Source Comments (unrecognized sect ion and content) No Status Records FoundNo Status Records FoundNo Status Records FoundNo Status Records FoundNo Status Records FoundNo Status Records FoundNo Status Records Found INFORMATION SOURCE (unrecogn ized section and content) DATE CREATED AUTHOR 09/30/2021 [facility] DATE CREATED AUTHOR AUTHOR'S ORGANIZ ATION 11/19/2021 [facility] DATE CREATED AUTHOR AUTHOR'S ORGANIZ ATION 11/21/2022 [facility] DATE CREATED AUTHOR AUTHOR'S ORGANIZ ATION 07/25/2023 [facility] DATE CREATED AUTHOR AUTHOR'S ORGANIZ ATION 08/15/2023 [facility] DATE CREATED AUTHOR AUTHOR'S ORGANIZ ATION 08/26/2023 [facility] DATE CREATED AUTHOR AUTHOR'S ORGANIZ ATION 2024 [facility] Reason for Visit (unrecogniz ed section and content) Reason Comments Follow-up Care Teams (unrecognized sec tion and content) [employer] Relationship Specialty Start Date End Date Vishal Contreras MD [address] [place] [id number] PCP - General Internal Medicine 12/02/20 [employer] Relationship Specialty Start Date End Date Vishal Contreras MD [address] [place] [id number] PCP - General Internal Medicine 12/02/20 [employer] Relationship Specialty Start Date End Date Vishal Contreras MD [address] [place] [id number] PCP - General Internal Medicine 12/02/20 [employer] Relationship Specialty Start Date End Date Vishal Contreras MD [address] [place] [id number] PCP - General Internal Medicine 12/02/20 FOR RECORDS PERTAINING TO PATIENTS WHO ARE OR HAVE BEEN ENROLLED IN A CHEMICAL DEPENDENCY/SUBSTANCEABUSE PROGRAM, SOME INFORMATION MAY BE OMITTED. This clinical summary was aggregated from multiple sources. Caution should be exercised in using it in the provision of clinical care. This summary normalizes information from multiple sources, and as a consequence, information in this document may materially change the coding, format and clinical context of patient data. In addition, data may be omitted in some cases. CLINICAL DECISIONS SHOULD BE BASED ON THE PRIMARY CLINICAL RECORDS. [facility]. provides no warranty or guarantee of the accuracy or completeness of information in this document.
[2024-06-06 11:37] LABS: Anion Gap 11.7; BUN Creatinine Ratio 14.9; Calcium 8.9 mg/dL (8.5-10.1); Carbon Dioxide 27.1 mmol/L (21.0-32.0); Chloride 105 mmol/L (98-107); Estimated GFR (African America >60 (>=60 mL/min/1.73m^2); Estimated GFR (Non-African Ame 53 (>=60 mL/min/1.73m^2); Glucose 93 mg/dL (74-106); Potassium 4.8 mmol/L (3.5-5.1); Sodium 139 mmol/L (136-145)
== END 2024-06-06 10:41 | disposition home or self-care (01) ==
LOC: LAB 10:42
PROVIDERS: Visit Provider Internal Medicine Cardiovascular Disease
DX: I48.0 Paroxysmal atrial fibrillation (principal)
CPT/HCPCS: 36415; 80048; 85025